=== PATIENT | male | born 1935 | race Caucasian/White ===

== ENCOUNTER 2017-02-28 14:29 | Inpatient (IN) ==
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
--- NOTE | 2017-02-28 16:52 | IRU 24Hr Post Admit Eval ---
24 Hr Post Admission Physical - Relevant Changes Relevant Changes: No Reviewed: I have reviewed the patient's information and concur with the finding and results of the pre-admission screen. Certification: I certify the patient for rehabilitation. - Patient Condition (1) Ribs, multiple fractures Status: Acute Qualifiers: Encounter type: subsequent encounter Fracture type: closed Laterality: right Fracture healing: with routine healing Qualified Code(s): S22.41XD - Multiple fractures of ribs, right side, subsequent encounter for fracture with routine healing Code(s): S22.49XA - Multiple fractures of ribs, unspecified side, initial encounter for closed fracture Classification: Present on IRF Admission, Diagnosis Requiring Medical Follow Up , Other Contributing Factor (2) Hemothorax on right Status: Acute Code(s): J94.2 - Hemothorax Classification: Present on IRF Admission, Diagnosis Requiring Medical Follow Up , Other Contributing Factor (3) Pneumothorax on right Status: Acute Code(s): J93.9 - Pneumothorax, unspecified Classification: Present on IRF Admission, Diagnosis Requiring Medical Follow Up (4) Parkinsons disease Status: Chronic Code(s): G20 - Parkinson's disease Classification: Present on IRF Admission, Diagnosis Requiring Medical Follow Up , Other Contributing Factor (5) Benign essential hypertension Status: Chronic Code(s): I10 - Essential (primary) hypertension Classification: Present on IRF Admission, Diagnosis Requiring Medical Follow Up (6) Acute blood loss anemia Status: Acute Code(s): D62 - Acute posthemorrhagic anemia Classification: Present on IRF Admission, IRF Tx That Should Address Diagnosis, Diagnosis Requiring Medical Follow Up (7) Atrial fibrillation, chronic Status: Chronic Code(s): I48.2 - Chronic atrial fibrillation Classification: Present on IRF Admission, IRF Tx That Should Address Diagnosis, Diagnosis Requiring Medical Follow Up - Prior Functional Status Lives With: Spouse Residence Type: Apartment/Private Home Assitive Devices: Front Wheeled Walker Prior Functional Status: Used no assistive device, Indep. w/ all home ADL - Current Functional Status Failed Alternative Therapy: Arrived from Acute Care Patient Requirements: The patient requires oversight by rehabilitation physician to manage their rehabilitation treatment plan and multidisciplinary approach to care that can only be provided in an IRF and requires a multidisciplinary approach to care, provided by professional PTs, OTs, STs, dieticians, RTs, rehabilitation nurses and is not available in lesser levels of care. Limitiations Req: Mobility Impairment, ADL Impairment, Respiratory Impairment, Desire/Ability to Partici Physical Therapy Minutes: 90 Occupational Therapy Minutes: 90 Therapy: The patient is to receive therapy at least 5 days a week. - Complications/Comorbidities Barriers to Discharge: Weakness, Endurance, Pain Control, Medical Limitation - Plan to Avoid Complications Plan to Avoid Complications: The patient cannot receive this care in a lesser intensive setting such as Half-Way or Outpatient Therapy due to the patient requiring the following : requirement to monitor and treat his rib fracture pain, monitoring for hypoxia , dyspnea and acute blood loss anemia. He has major multiple trauma, including multiple traumatic rib fractures, acute lung injury with pneumothorax and lower lung contusion based on chest X-ray. He will require an intensive, individualized plan of care to involve physical therapy 90 minutes daily, 5 days weekly, occupational therapy, 90 minutes daily , 5 days weekly, dietitian, rehabilitation nursing on a 24-hour basis and physician management at least 3 days weekly. .
[2017-02-28] MEDS ORDERED: Oxycodone *IR* 5 MG TABLET PO PRN (16:57)
[2017-02-28] MEDS ORDERED: SIMETHICONE 80 MG CHEWABLE TABLET PO PRN (16:57)
[2017-02-28 17:36] VITALS: BMI 29.5
[2017-02-28] MEDS: ACETAMINOPHEN 500 MG TABLET PO SCH ×2 (17:54→21:29)
[2017-02-28] MEDS ORDERED: WARFARIN 6 MG TABLET PO SCH (21:00)
[2017-02-28] MEDS: DOCUSATE SODIUM 100 MG CAPSULE PO SCH (21:29)
[2017-03-01] MEDS: ACETAMINOPHEN 500 MG TABLET PO SCH ×5 (06:11→21:22)
[2017-03-01] MEDS: COENZYME Q-10 200mg TABLET PO SCH (08:19)
[2017-03-01] MEDS: CALCIUM CARBONATE Chewable 500mg TABLET PO SCH (08:20)
[2017-03-01] MEDS: ATENOLOL 25 MG TABLET PO SCH (08:20)
[2017-03-01] MEDS: MULTI-VITAMIN + MINERAL TABLET PO SCH (08:22)
[2017-03-01] MEDS: LIDOCAINE 5% PATCH TOP SCH (08:22)
[2017-03-01] MEDS: DOCUSATE SODIUM 100 MG CAPSULE PO SCH ×2 (08:22→21:18)
[2017-03-01] MEDS: POLYETHYL GLYCOL 3350 17gm PACKET PO SCH (08:22)
[2017-03-01] MEDS: EZETIMIBE 10 MG TABLET PO SCH (08:22)
[2017-03-01] MEDS ORDERED: TURMERIC ROOT EXTRACT PO SCH (09:00)
--- NOTE | 2017-03-01 09:49 | Consult Note ---
<AdriannaMichelle Marty - Last Filed: 03/01/17 11:53> Consult Information - Data of Consult Patient: new to practice Consult date: 02/28/17 Requesting Physician: Kyler Hale MD Primary Care Provider: José Miguel Dueñas MD Family Provider: José Miguel Dueñas MD - Consult Narrative Reason for consult: Anemia; A-fib; Parkinson's History of present illness: 81-year-old male seen in consultation from Dr. Hale for medical management of chronic conditions including A. fib, on Coumadin, Parkinson's, asthma, hypertension. Below is a summary of the patient's recent events. 02/15/17: Patient either fell to the ground or was knocked over by his truck door as it was rolling backward. He had forgot to put his truck in park. He managed the night at home, but awakening the next morning in significant pain and was evaluated at [facility] emergency department. 02/16/17-hospitalized at [facility] CT scan of his chest showed a very large right hemothorax. He decompensated in the emergency department and a chest tube was emergently placed. Rib fractures of ribs 8 through 12 on the right side. Received FFP and Vitamin K. Transfused 1 U PRBC, transferred as Level I trauma to [place]. Chest tube dc'd on 02/25. Some hypotension - IVF; held metoprolol until stabilized. Required some diuresis with Lasix 02/26/17 WBC 11.9, h&h 11.3, 34; Plt 407. chest x-ray - continued right pleural effusion and improving right basilar airspace disease, stable small right apical pneumothorax 02/28/17 INR 1.7 Discharged from [facility]; admitted to [facility] for strengthening and ongoing medical monitoring 03/01/17 Evaluated by hospitalist department during PT. ROS largely negative, only positive for cough (productive last night), and recent development of coughing when he swallows. He tends to have lower extremity swelling chronically and it is a bit worse now. Occasionally has tremors with Parkinson's. Had constipation at [place] but that has resolved. PFSH Atrial fibrillation Chronic anticoagulation with Coumadin Parkinson's HTN Anemia - ABLA BPH Asthma Cataracts H/O prostate CA Surgical History: 1. Prostate surgery for cancer. 2. Chest tube placement for hemothorax and pneumothorax 02/16/17. 3. Bilateral cataract extractions. 4. T& A. 5. Herniorraphies. 6. Appendectomy Family History: Father of unknown causes when pt was very young. 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 Absent: chills, fever(s), headache(s) - EENMT Ears: Absent: ear discharge Balance: Absent: vertigo Mouth/Throat: Absent: sore throat - Cardiovascular Cardiovascular: Absent: chest pain Rhythm: Present: abnormal rhythm Vascular: Absent: intermittent claudication - Respiratory Respiratory: Present: cough. Absent: dyspnea, dyspnea on exertion - Gastrointestinal Gastrointestinal: Present: constipation (occasionally). Absent: abdominal pain , diarrhea, nausea - Genitourinary Genitourinary: Absent: dysuria - Musculoskeletal Musculoskeletal: Absent: abnormal gait, muscle weakness - Integumentary/Breasts Integumentary: Absent: rash - Neurological Neurological: Present: tremor(s) (occasionally). Absent: confusion, dizziness, focal weakness, headache(s), loss of vision, memory loss, weakness - Psychiatric Psychiatric: Absent: anxiety, depression - Hematologic/Lymphatic Hematologic/Lymphatic: Present: easy bleeding, easy bruising Medications Home Medications Medication Instructions Recorded Confirmed Type Atenolol 12.5 mg PO DAILY #0 03/15/12 02/28/17 History Ezetimibe [Zetia] 10 mg PO DAILY #0 03/15/12 02/28/17 History Multivitamins (Multiple Vitamin) 1 tab PO DAILY #0 03/15/12 02/28/17 History Ubidecarenone [Co Q-10] 100 mg PO DAILY #0 03/15/12 02/28/17 History Turmeric/Turmeric Root Extract 500 mg PO DAILY #0 02/19/16 02/28/17 History [Turmeric 450-50 mg Capsule] Warfarin Sodium [Coumadin] 5 mg PO SUTUWETHFRSA 02/16/17 02/28/17 History Acetaminophen [Acetaminophen Extra 500 mg PO Q4WA 02/28/17 02/28/17 History Strength] CALCIUM CARBONATE Chewable [Tums] 1,000 mg PO DAILY 02/28/17 02/28/17 History Carbidopa/Levodopa 1 tab PO TID 02/28/17 02/28/17 History [Carbidopa-Levodopa 25-100 Tab] Docusate Sodium [Colace] 1 cap PO BID 02/28/17 02/28/17 History Enoxaparin [Lovenox] 30 mg SUB-Q Q12HR 02/28/17 02/28/17 History Ibuprofen [Motrin] 1 tab PO Q8HR PRN 02/28/17 02/28/17 History Lidocaine 5% Patch [Lidoderm] 2 patch TRANSDERMA DAILY 02/28/17 02/28/17 History Milk of Magnesia [Mom] 30 ml PO DAILY 02/28/17 02/28/17 History Oxycodone *Ir* [Roxicodone *Ir*] 5 mg PO Q4HPRN PRN 02/28/17 02/28/17 History PEG 3350 17gm PACKET [Miralax] 17 gm PO DAILY 02/28/17 02/28/17 History Simethicone [Mylicon] 80 mg PO Q4HR PRN 02/28/17 02/28/17 History Warfarin Sodium 6 mg PO MO@1700 02/28/17 02/28/17 History Allergies Allergy/AdvReac Type Severity Reaction Status Date / Time No Known Drug Allergies Allergy Unknown Verified 02/28/17 16:56 Exam Vital Signs: Temperature 98.5 F 03/01/17 08:36 Pulse Rate 104 H 03/01/17 07:00 Respiratory Rate 18 03/01/17 07:00 Blood Pressure 133/72 03/01/17 07:00 Pulse Oximetry 95 03/01/17 07:00 Oxygen Delivery Method Room Air Height: 1.68 m Weight: 83.1 kg Body Mass Index: 29.5 - Constitutional Present: no acute distress, well nourished, well developed, thin - Routine HEENT Exam Head: Present: normocephalic Eye: Present: PERRL, conjunctival icterus (subtle) ENT: Present: mucous membranes moist, oropharynx clear. Absent: dentition normal (decay noted) - Routine Neck Exam Present: supple, full ROM. Absent: tenderness - Routine Respiratory Exam Present: CTA bilaterally. Absent: accessory muscle use, dyspnea, decreased breath sounds, rales - Routine Cardiovascular Exam Present: S1, S2, irregular rhythm - Routine Abdominal Exam Present: soft, normoactive bowel sounds, non distended, non tender - Routine Extremities Exam Present: edema (B/L LE 2+) - Routine Back/Spine/Pelvis Exam Back/Spine: Absent: vertebral tenderness, kyphosis - Routine Skin Exam Present: intact, dry, warm - Routine Neurological Exam Present: alert, oriented X3, CN II-XII intact. Absent: motor deficit, abnormal gait (uses cane well) - Routine Psychiatric Exam Present: normal affect, normal thought process Results - Labs CBC & Chem 7: 03/01/17 05:06 03/01/17 05:06 Assessment and Plan (1) Hemothorax on right Current visit: Yes Status: Acute DVT Prophylaxis: Coumadin Resuscitation Status: Full Code Assessment and Plan: Assessment Leukocytosis Thrombocytosis Right posterior rib fx 8-12 with hemothorax - chest tube from 02/16-02/25 Atrial fibrillation Chronic anticoagulation with Coumadin Anemia - ABLA Parkinson's HTN BPH Asthma Cataracts Plan Status post chest tube for right-sided hemothorax, right 8th through 12th rib fractures. * Monitor sats and breathing closely. * Encourage incentive spirometry, albuterol treatments if needed. Cough, leukocytosis. * SIRS 2/4 = tachycardia; WBC >12,000 * qSOFA = 0/3 * Obtain chest x-ray to follow-up recent trauma and to evaluate for occult pneumonia * Consult speech therapy, he is at risk for aspiration with underlying Parkinson 's and acute debility Atrial fibrillation, on Coumadin * Consult pharmacy to manage Coumadin dose * INR today is 1.7, will start Lovenox daily until INR is therapeutic * Goal INR is 2.0-3.0 Hypertension * monitor BP - had hypotension in acute setting, which has resolved * Continue atenolol. ABLA * Hemoglobin 10.8 on admit, follow periodically Thrombocytosis * Platelet level and increased from [place]. * Suspect reactive. Will monitor. Thank you for consulting the hospitalist service. We will follow Mr. Tripathi along with you during his IRU course. Extensive chart review done; discussed with nursing staff, Dr. Hale, and patient and spouse. - Time spent with patient 25 - 35 minutes Hospital Course Summary Disclaimer: The visit summary below is not to be considered part of the above Progress Note. Sepsis Assessment - Evaluation Sepsis screening result: No Definite Risk <Kristy Farfan - Last Filed: 03/01/17 16:43> Consult Information - Data of Consult Requesting Physician: Kyler Hale MD Primary Care Provider: José Miguel Dueñas MD Family Provider: José Miguel Dueñas MD [facility] Patient Stated Medical History Parkinson's Disease Yes Cataracts Yes Cardiac Arrhythmia Yes: Atrial Fib Hypertension Yes Asthma Yes Constipation pt. reports sometimes Hx Benign Prostatic Yes Hyperplasia Hx Incontinence No Other Hematologic Yes: COUMADIN Other Musculoskeletal Yes: FX LEG, CLAVICLE, RIBS Exam Vital Signs: Temperature 98.7 F 03/01/17 16:00 Pulse Rate 84 03/01/17 16:00 Respiratory Rate 18 03/01/17 16:00 Blood Pressure 101/64 03/01/17 16:00 Pulse Oximetry 92 03/01/17 16:00 Oxygen Delivery Method Room Air Height: 1.68 m Weight: 83.1 kg Results - Labs CBC & Chem 7: 03/01/17 05:06 03/01/17 05:06 Microbiology Results: Microbiology 03/01/17 16:06 Sputum, Expectorated Sputum Culture - Preliminary Culture Initiated - Results Pending Assessment and Plan (1) Hemothorax on right Current visit: Yes Status: Acute Assessment and Plan: I have independently evaluated and examined this patient. I reviewed the chart, the patient's history, and the STRATEGIC ACCOUNTS MANAGER/PA's documented findings as above. We discussed and formulated the assessment and plan as above with additions as below: Mr. Tripathi is a pleasant elderly male with chest wall trauma as noted above resulting in multiple rib fractures and hemothorax necessitating urgent chest tube placement. Chest tube was removed shortly before discharge to IRU. Currently the patient describes 1/10 discomfort in the right chest and minimal discomfort with deep inspiration or use of incentive spirometry. He reports that he was able to work hard with physical therapy yesterday and feels he is making progress. Minor low-grade therapy reported overnight with Tmax 100.3. NAD, generalized pallor Marked crepitance left shoulder with any movement Decreased breath sounds at the right base but no rhonchi appreciated nor wheezing. Irregular cardiac rhythm, 2+ edema RLE, 1-2+ bilaterally. No rest tremor present at time of exam. Chest x-ray reviewed by myself revealing atelectasis/infiltrate right base, small apical pneumothorax, and rounded infiltrate in the fissure best seen on the lateral film. Given absence of ongoing fever and minimal leukocytosis will continue to monitor. Do not believe there is clear indication for antibiotics at present but will obtain sputum culture. Repeat chest x-ray in approximately 3 days or sooner if clinical change in status. Outpatient records reviewed-patient additionally has history of obstructive sleep apnea and utilizes nocturnal BiPAP. BiPAP on hold at present due to rib fracture/chest tube. Additionally has diagnosis of overactive bladder managed with 5 mg Vesicare daily (Dr. Aranda)-patient does not feel need to resume medication at this time Hospital Course Summary Disclaimer: The visit summary below is not to be considered part of the above Progress Note. Addendum entered and electronically signed by Michelle Rodas APRN 03/01/17 11: 56: Chest tube site with mild erythema and granulation tissue. Dressing reapplied.
[2017-03-01] MEDS ORDERED: ALBUTEROL 2.5mg/0.5ml (0.5%) NEB AEROSOL PRN (10:17)
--- NOTE | 2017-03-01 10:26 | IRU Progress Note ---
- Subjective/Serverity of Illness Mr. Tripathi is cooperating well with therapy. He states that he is a bit tired this morning. Slept reasonably well. had reported that the patient had some coughing and difficulty swallowing which has been somewhat progressive over the past several weeks. Patient also admits to this. He is willing to have speech therapy evaluate him. Denies any worsening with his rib pain at present. Pain management appears to be adequate. He is using a couple of lidocaine patches over the area which are beneficial for him. It is noted that his white count has increased a bit to 12,000. Platelets are also up. Hemoglobin is stable. There is some purulent discharge from the chest tube site. Exam Vital Signs: Temperature 98.6 F 03/01/17 09:54 Pulse Rate 104 H 03/01/17 07:00 Respiratory Rate 18 03/01/17 07:00 Blood Pressure 133/72 03/01/17 07:00 Pulse Oximetry 95 03/01/17 07:00 Oxygen Delivery Method Room Air Height: 1.68 m Weight: 83.1 kg Body Mass Index: 29.5 - Constitutional Present: no acute distress Comments: The patient is awake, alert and oriented and in no acute distress. Pupils are equal. The neck is supple. Chest: Clear to auscultation on the left, but reduced breath sounds on the right lower 1/2 lung field. No crackles noted. The chest tube site on the right side demonstrates some mild purulent discharge without a large surrounding area of redness. WBC up as noted. Cor: RR with no robin, click nor murmur Abd: soft with normo-active bowel sounds. Once again, the liver seems enlarged, vs a prominent lipoma. Will review outside CT. Extremities: No edema is noted. There are good pulses in both ankles. No cyanosis is present. The patient's wound in the right chest shows mild purulence as noted. It is non- tender and I can't express more pus from this. - Routine HEENT Exam Head: Present: normocephalic Eye: Present: EOMI ENT: Present: mucous membranes moist - Routine Neck Exam Present: supple - Routine Respiratory Exam Present: decreased breath sounds (in right lower lung field) - Routine Cardiovascular Exam Present: RRR, S1, S2, no murmur - Routine Abdominal Exam Present: soft, normoactive bowel sounds, non distended, non tender, organomegaly (Prominent mass/cyst/lipoma right upper quadrant) - Routine Extremities Exam Present: no edema - Routine Neurological Exam Present: alert, oriented X3, CN II-XII intact - Routine Psychiatric Exam Present: normal affect, normal thought process, cooperative Results IRU - Labs Labs: WBC up to 12k. Platelets up. Sepsis Assessment - Evaluation Sepsis screening result: No Definite Risk IRU A/P (1) Ribs, multiple fractures Qualifiers: Encounter type: subsequent encounter Fracture type: closed Laterality: right Fracture healing: with routine healing Qualified Code(s): S22.41XD - Multiple fractures of ribs, right side, subsequent encounter for fracture with routine healing Current visit: Yes Status: Acute Patient does have discomfort in the ribs which is somewhat limiting his therapy. However the lidocaine patches appear to be of benefit for him. (2) Hemothorax on right Current visit: Yes Status: Acute Hemoglobin remained stable at present at 10.8. However there are diminished breath sounds in the right lower one half of the lung shahid. (3) Pneumothorax on right Current visit: Yes Status: Acute His white count is slightly up at 12,000. There is some purulent discharge from the chest tube site. However no surrounding erythema is noted of any significance. (4) Parkinsons disease Current visit: Yes Status: Chronic Does have some cogwheeling. He is reporting some dysphagia and we will ask speech therapy to evaluate that. (5) Benign essential hypertension Current visit: Yes Status: Chronic (6) Acute blood loss anemia Current visit: Yes Status: Acute Hematoma stable at 10.8. (7) Atrial fibrillation, chronic Current visit: Yes Status: Chronic On warfarin. (8) Dysphagia, oropharyngeal phase Current visit: Yes Status: Chronic Patient is at increased risk for pneumonia in view of his dysphagia and possible microaspiration. We will ask speech therapy to evaluate and treat. DVT Prophylaxis: Coumadin Resuscitation Status: Full Code - Course Hospital Course: Kyler Hale MD: 03/01/17 10:31 He is settling into the acute rehabilitation unit well. He is cooperating with therapy. White count is a bit up and there is some purulence from the chest tube site without surrounding erythema. There is report of dysphagia and coughing with swallowing. Speech therapy will be consulted. - Interventions to Obtain Goals OT Treatment Plan: ADL (Basic Care), Balance Training, IADL, Pt./Family Education, Ther. Exercise for ADL Goals Progress/Modifications: We will ask speech therapy to further evaluate the patient's possible dysphagia.
--- NOTE | 2017-03-01 11:21 | XRay Report ---
INDICATION: f/u - s/p chest tube rt hemothorax; rt 8-12 rib fx PROCEDURE: CHEST 2-VIEWS UPRIGHT (PA & LAT) Encounter: Subsequent COMPARISON: February 16, 2017 FINDINGS: Right chest tube has been removed. Evidence for a small residual right apical pneumothorax. Small right pleural effusion present. Right basilar airspace consolidation remains. No left-sided pneumothorax. Linear areas of atelectasis in the left base. Cardiac silhouette remains enlarged but unchanged. Mediastinal contours are stable. Prior right rib fractures. Impression: Interval removal of the right chest tube with a small residual hydropneumothorax. Interval increase in right pleural fluid. .
--- NOTE | 2017-03-01 11:33 | Pharmacy Consult ---
Pharmacy Consult-Warfarin - Laboratory Information 03/01/17 05:05 INR 1.74 H - Consult Information COUMADIN CONSULT (Initial): Dx: Chronic A. Fib. Baseline INR = 1.74. Will give Warfarin 7.5mg today. Will continue to monitor and make adjustments accordingly. Thank you.
[2017-03-01] MEDS ORDERED: WARFARIN 7.5 MG TABLET PO SCH (12:00)
[2017-03-01] MEDS ORDERED: WARFARIN 5 MG TABLET PO SCH (12:00)
[2017-03-01] MEDS: ENOXAPARIN 40 MG/0.4 ML INJECTION SQ SCH (12:10)
--- NOTE | 2017-03-01 12:37 | IRU Team Meeting ---
IRU Team Meeting - Nursing Vital Signs: Vital Signs - 24 hr 02/28/17 15:43 02/28/17 18:45 02/28/17 19:22 Temperature 98.3 F 100.3 F Pulse Rate 88 88 87 Respiratory Rate 16 16 16 Blood Pressure 137/74 127/68 Pulse Oximetry 95 95 93 02/28/17 22:11 03/01/17 07:00 03/01/17 08:36 Temperature 99.8 F 98.5 F Pulse Rate 104 H Respiratory Rate 18 Blood Pressure 133/72 Pulse Oximetry 95 03/01/17 09:54 Temperature 98.6 F Pulse Rate Respiratory Rate Blood Pressure Pulse Oximetry Current Medications: Acetaminophen (Tylenol) 500 mg PO Q4WA [facility] Last Admin: 03/01/17 12:11 Dose: Not Given Albuterol Sulfate (Proventil Neb (0.5%)) 2.5 mg AEROSOL Q4H PRN Atenolol (Tenormin) 12.5 mg PO DAILY [facility] Last Admin: 03/01/17 08:20 Dose: 12.5 mg Calcium Carbonate (Tums) 1,000 mg PO DAILY [facility] Last Admin: 03/01/17 08:20 Dose: 1,000 mg Carbidopa/Levodopa (Sinemet) 1 tab PO TID/E [facility] Last Admin: 03/01/17 06:11 Dose: 1 tab Coenzyme Q10 (Co Q-10) 200 mg PO DAILY [facility] Last Admin: 03/01/17 08:19 Dose: 200 mg Docusate Sodium (Colace) 100 mg PO BID [facility] Last Admin: 03/01/17 08:22 Dose: Not Given Ezetimibe (Zetia) 10 mg PO DAILY [facility] Last Admin: 03/01/17 08:22 Dose: 10 mg Enoxaparin Sodium (Lovenox) 40 mg SQ DAILY [facility] Last Admin: 03/01/17 12:10 Dose: 40 mg Lidocaine (Lidoderm) 2 patch TOP DAILY [facility] Last Admin: 03/01/17 08:22 Dose: 2 patch Magnesium Hydroxide (Mom) 30 ml PO DAILY PRN PRN Reason: Constipation Multivitamins/Minerals (Therapeutic - M) 1 tab PO DAILY [facility] Last Admin: 03/01/17 08:22 Dose: 1 tab Non-Formulary Medication (Turmeric/Turmeric Root Extract [Turmeric 450-50 Mg Capsule]) 500 mg PO DAILY [facility] Oxycodone HCl (Roxicodone *Ir*) 5 mg PO Q4H PRN PRN Reason: Breakthrough pain Polyethylene Glycol (Miralax) 17 gm PO DAILY [facility] Last Admin: 03/01/17 08:22 Dose: Not Given Simethicone (Mylicon) 80 mg PO Q4H PRN PRN Reason: Gas/Bloating Warfarin Sodium (Coumadin Protocol) 0 NOTE [facility] Comments: Admitted after hemothorax. WBC is up a bit. CXR shows continued effusion. Constipated. Dysphagia/cough with swallowing so ST is consulted.Occ incont. Low grade temp to 100.3 yesterday but down since. Yellow drainage from chest tube site. - Physical Therapy Supine to Sit Bed Mobility Ability: Contact Guard Assistance Sit to Supine Bed Mobility Ability: Contact Guard Assistance Comments: CGA for transfers, stairs and walking. Walks with walker 165 ft with CGA. Has reduced strength henrietta left hip. Balance test: walking with assistance category. Fatigued after walking 165 ft. Poor endurance. - Occupational Therapy Eating Ability: Independent Grooming Ability: Contact Guard Assistance Upper Body Dressing Ability: Contact Guard Assistance Lower Body Dressing Ability: Contact Guard Assistance Lower Body Dressing Comment: CGA for many ADL's. He is cooperative with therapy. Continue to work with pt. May need a shower chair at home. - Care Plan Anticipated Length of Stay: 6 Anticipated DC Destination: Home, Self Care Interventions/Goals: Continue to work with patient. He is doing well. Working on the best assistive device. Anticipate dismissal Tuesday. Barriers: endurance, cognitive Goals: find appropriate and safe assistive device. Improved safety awareness.
[2017-03-01] MEDS: LIDOCAINE PATCH REMOVAL TOP SCH (21:22)
[2017-03-02] MEDS: ACETAMINOPHEN 500 MG TABLET PO SCH ×6 (06:08→23:11)
--- NOTE | 2017-03-02 08:30 | Pharmacy Consult ---
Pharmacy Consult-Warfarin - Laboratory Information 03/01/17 03/02/17 05:05 04:42 INR 1.74 H 2.49 H - Consult Information COUMADIN CONSULT (Recurring): Today's INR = 2.49. Will give Warfarin 4mg today. Recommend dc'ing enoxaparin. Will continue to monitor & make adjustments accordingly. Thank you.
[2017-03-02] MEDS: ATENOLOL 25 MG TABLET PO SCH (08:55)
[2017-03-02] MEDS: EZETIMIBE 10 MG TABLET PO SCH (08:56)
[2017-03-02] MEDS: DOCUSATE SODIUM 100 MG CAPSULE PO SCH (08:56)
[2017-03-02] MEDS: MULTI-VITAMIN + MINERAL TABLET PO SCH (08:56)
[2017-03-02] MEDS: COENZYME Q-10 200mg TABLET PO SCH (08:56)
[2017-03-02] MEDS: POLYETHYL GLYCOL 3350 17gm PACKET PO SCH (08:57)
[2017-03-02] MEDS: ENOXAPARIN 40 MG/0.4 ML INJECTION SQ SCH (08:57)
--- NOTE | 2017-03-02 10:10 | IRU Progress Note ---
- Subjective/Serverity of Illness Mr. Tripathi was evaluated in his room. I also observed him working with therapy. He continues to require contact guard assistance for ambulation and transfers. In addition he requires contact-guard assistance for lower extremity dressing. He reports that his bowels are nice and soft and would prefer to stop the stool softener which will be accomplished. We will continue the MiraLAX. He is eating adequately. He does have multiple rib fractures on the right side. Pain is apparently fairly well controlled at present. He does appear to be a bit objectively dyspneic when he exerts himself but he does not really report this otherwise. The chest tube site was inspected. There is a small amount of purulence but it is not really exuding out. Does not really have significant surrounding erythema. Pressing on the area does not reveal any fluctuance. His white count remains elevated at 12,000. This is identical to yesterday. Platelets are up. Hemoglobin is stable at 10 g percent. I did review his chest radiograph yesterday demonstrating lower lobe atelectasis and effusion. There may be a continued very tiny apical pneumothorax. States that he is using his incentive spirometer and I encouraged him to continue doing that. Does have a cough but not much in the way of sputum. His INR is therapeutic. Exam Vital Signs: Temperature 98.2 F 03/02/17 08:00 Pulse Rate 83 03/02/17 08:00 Respiratory Rate 22 03/02/17 08:00 Blood Pressure 105/65 03/02/17 08:00 Pulse Oximetry 91 03/02/17 08:00 Oxygen Delivery Method Room Air Height: 1.68 m Weight: 83.1 kg Body Mass Index: 29.5 - Constitutional Present: mild distress (appears to be a little dyspneic after ambulating.) Comments: The patient is awake, alert and oriented and displays a bit of dyspnea with activity.. Pupils are equal. The neck is supple. Chest: Clear to auscultation in the left lung but does have markedly diminished breath sounds right lower one half lung field.. Cor: Irregular rhythm with no robin, click nor murmur Abd: soft with normo-active bowel sounds. Liver edge continues to be prominent with some irregularity. Does have multiple cysts in the liver based on CT scan. Extremities: No edema is noted. There are good pulses in both ankles. No cyanosis is present. The patient's wound in the right chest from his chest tube site is inspected. Minimal purulence, no moisture and no fluctuance. No significant surrounding erythema. It appears to be stable. - Routine HEENT Exam Head: Present: normocephalic Eye: Present: EOMI, PERRL. Absent: conjunctival icterus, scleral injection ENT: Present: mucous membranes moist - Routine Neck Exam Present: supple - Routine Respiratory Exam Present: dyspnea, decreased breath sounds (right lower one half) - Routine Cardiovascular Exam Present: S1, S2, no murmur, irregularly irregular - Routine Abdominal Exam Present: soft, normoactive bowel sounds, non distended, non tender, organomegaly (as noted previously, liver edge noted to be prominent.) - Routine Extremities Exam Present: no edema, full ROM - Routine Skin Exam Present: intact. Absent: erythema - Routine Neurological Exam Present: alert, oriented X3, CN II-XII intact The patient may tend to minimize his symptoms. - Routine Psychiatric Exam Present: normal affect, normal thought process, cooperative, depressed. Absent : good judgment Results IRU - Labs Labs: I have personally reviewed his chest x-ray and lab work. Please see previous discussion in this regard. Sepsis Assessment - Evaluation Sepsis screening result: No Definite Risk IRU A/P (1) Ribs, multiple fractures Qualifiers: Encounter type: subsequent encounter Fracture type: closed Laterality: right Fracture healing: with routine healing Qualified Code(s): S22.41XD - Multiple fractures of ribs, right side, subsequent encounter for fracture with routine healing Current visit: Yes Status: Acute Patient does have discomfort from his multiple rib fractures on the right. Seems to be stable at present. Does have some dyspnea with activity on an objective basis. Does have a right pleural effusion and atelectasis. The reader is referred to the separate individualized plan of care developed today. This enters into the medical decision making process and also adds on approximately 30 minutes of additional documentation time and medical decision- making.. He is improving with therapy. We have added on speech therapy. (2) Hemothorax on right Current visit: Yes Status: Acute Residual pleural effusion etc. identified. (3) Pneumothorax on right Current visit: Yes Status: Acute Small apical pneumothorax is felt to continue to be present. (4) Parkinsons disease Current visit: Yes Status: Chronic His chronic Parkinson's disease does affect his therapy. In addition he is being evaluated for swallowing difficulty by speech therapy. (5) Benign essential hypertension Current visit: Yes Status: Chronic (6) Acute blood loss anemia Current visit: Yes Status: Acute Hemoglobin remained stable at 10 g percent. White count is elevated however. (7) Atrial fibrillation, chronic Current visit: Yes Status: Chronic INR is therapeutic. (8) Dysphagia, oropharyngeal phase Current visit: Yes Status: Chronic Speech therapy evaluation pending. DVT Prophylaxis: Coumadin Resuscitation Status: Full Code - Course Hospital Course: Kyler Hale MD: 03/01/17 10:31 He is settling into the acute rehabilitation unit well. He is cooperating with therapy. White count is a bit up and there is some purulence from the chest tube site without surrounding erythema. There is report of dysphagia and coughing with swallowing. Speech therapy will be consulted. 03/02/17 10:15 Patient is making progress. His Parkinson's disease is a limitation on his progress however. He is walking with contact-guard assistance and during lower extremity dressing with contact-guard assistance. His multiple major trauma from his multiple right rib fractures is limiting his progress as well. We anticipate continued improvement over the next several days with a planned dismissal on March 07. Stool softener is discontinued today. Wound looks about the same and his white count remains elevated at 12,000. - Interventions to Obtain Goals PT Treatment Plan: Balance/Proprioception, Functional Activities, Gait Training , Patient/Family Education, Therapeutic Exercise OT Treatment Plan: ADL (Basic Care), Balance Training, IADL, Pt./Family Education, Ther. Exercise for ADL Goals Progress/Modifications: Increase medical decision-making was involved in development of the patient's individualized plan of care documented separately. Speech therapy has now been consulted for his dysphagia.
[2017-03-02] MEDS: CALCIUM CARBONATE Chewable 500mg TABLET PO SCH (10:14)
--- NOTE | 2017-03-02 10:23 | IRU Plan of Care ---
U Overall Plan of Care - Date Date: 03/02/17 - Patient Impairments (1) Hemothorax on right Code(s): J94.2 - Hemothorax Status: Acute Classification: Present on IRF Admission (patient's chest x-ray continues to demonstrate pleural effusion and likely hemothorax. Atelectasis also present.), Diagnosis Requiring Medical Follow Up, Other Contributing Factor (2) Ribs, multiple fractures Qualifiers: Encounter type: subsequent encounter Fracture type: closed Laterality: right Fracture healing: with routine healing Qualified Code(s): S22.41XD - Multiple fractures of ribs, right side, subsequent encounter for fracture with routine healing Code(s): S22.49XA - Multiple fractures of ribs, unspecified side, initial encounter for closed fracture Status: Acute Classification: Present on IRF Admission, Diagnosis Requiring Medical Follow Up (he has multiple major trauma (multiple rib fractures) which has resulted in a hemothorax and shortness of breath with activity.), Other Contributing Factor (3) Dysphagia, oropharyngeal phase Code(s): R13.12 - Dysphagia, oropharyngeal phase Status: Chronic Classification: Present on IRF Admission, IRF Tx That Should Address Diagnosis ( patient's and patient confirms that he has had coughing with swallowing. Speech therapy is now involved.) (4) Parkinsons disease Code(s): G20 - Parkinson's disease Status: Chronic Classification: Present on IRF Admission, Diagnosis Requiring Medical Follow Up , Other Contributing Factor (5) Pneumothorax on right Code(s): J93.9 - Pneumothorax, unspecified Status: Acute Classification: Present on IRF Admission, Diagnosis Requiring Medical Follow Up (6) Leukocytosis Qualifiers: Leukocytosis type: other Qualified Code(s): D72.828 - Other elevated white blood cell count Code(s): D72.829 - Elevated white blood cell count, unspecified Status: Acute Classification: Present on IRF Admission, IRF Tx That Should Address Diagnosis, Diagnosis Requiring Medical Follow Up (he has developed leukocytosis to 12,000 compared to 10,000 in [place]. We are monitoring the patient's right chest tube wound.) - Relevant Changes Relevant Changes: Yes (patient has developed new leukocytosis as well as need for addressing dysphagia and risk for aspiration.) Reviewed: I have reviewed the patient's information and concur with the finding and results of the pre-admission screen. Certification: I certify the patient for rehabilitation. - Medical Prognosis Medical Prognosis: Good Vital Signs: Last Vital Signs Temp 98.2 F 03/02/17 08:00 Pulse 83 03/02/17 08:00 Resp 22 03/02/17 08:00 BP 105/65 03/02/17 08:00 Pulse Ox 91 03/02/17 08:00 Laboratory: Repeat chest x-ray demonstrates pleural effusion and a small right pneumothorax. Atelectasis also present. White count is 12,000 and we are monitoring that as well as the chest wound. - Anticipated Interventions Anticipated Interventions: The patient requires inpatient IRF care for PT, OT, and/or ST for residuals remaining from multiple major trauma involving multiple right rib fractures, large hemothorax and recent chest tube placement and removal resulting in muscular weakness and strength deficits. - FIM Ambulation Distance: 165 Walk: 3 Moderate Assistance Staff Assist to Walk: 1 Person Dressing Lower: 3 Moderate Assistance Staff Assistance Lower Body Dressin Person Toileting Adaptive Equipment: Toilet Rails Urinary Catheter Present: No - Current Functional Status Failed Alternative Therapy: Arrived from Acute Care Patient Requires: The patient requires oversight by rehabilitation physician to manage their rehabilitation treatment plan and multidisciplinary approach to care that can only be provided in an IRF and requires a multidisciplinary approach to care, provided by professional PTs, OTs, STs, dieticians, RTs, rehabilitation nurses and is not available in lesser levels of care. Physical Therapy Minutes: 90 Occupational Therapy Minutes: 90 Therapy: The patient is to receive therapy at least [address] Treatment Plan: Swallow Precautions, Modified Diet ST Treatment Plan Duration: One Week ST Treatment Plan Frequency: Three Times Per Week - Anticipated LOS/Outcomes Anticipated Functional Outcome: It is anticipated the patient will be able to resume independent to modified independent function at home with the patient being able to dress himself without assistance, ambulate safely and resume most of his prior activities without assistive device. It is also anticipated that the patient will be able to swallow and eat in a safe manner and be able to ambulate without significant dyspnea. Stabilization and improvement in his white count and chest wound are anticipated as well. Anticipated Length of Stay: 6 Anticipated DC Destination: Home, Self [facility] Safety Plan: The patient will be provided with the development of a Home Safety Plan for return to a home or home-like environment and and to ensure safety post discharge. - Plan to Avoid Complications Barriers to Attaining Goals: Weakness, Endurance, Medical Limitation Plan to Avoid Complications: The patient cannot receive this care in a lesser intensive setting such as Retirement or Outpatient Therapy due to the patient requiring the following monitoring of his chest wound, leukocytosis, multiple rib fractures in the setting of Parkinson's disease as well as abnormal chest x-ray and the need for a comprehensive, intensive and individualized plan of care involving physical therapy, occupational therapy and speech therapy in view of his dysphagia and risk for aspiration. .
--- NOTE | 2017-03-02 10:31 | Progress Note ---
Subjective: Pt seen in his room today during therapy. He has no complaints. States at this point he is having no pain. Feels his breathing is ok. No nursing concerns. Objective Vital signs: Temperature 98.2 F 03/02/17 08:00 Pulse Rate 83 03/02/17 08:00 Respiratory Rate 22 03/02/17 08:00 Blood Pressure 105/65 03/02/17 08:00 Pulse Oximetry 91 03/02/17 08:00 Oxygen Delivery Method Room Air Body Mass Index: 29.5 - Constitutional Present: mild distress, well nourished, well developed - Routine HEENT Exam Head: Present: normocephalic, atraumatic Eye: Present: EOMI ENT: Present: mucous membranes moist - Routine Respiratory Exam Present: CTA bilaterally, diminished air movement (decreased sounds RLL). Absent: wheezes - Routine Cardiovascular Exam Present: irregularly irregular. Absent: murmur - Routine Abdominal Exam Present: soft, normoactive bowel sounds, non distended. Absent: tenderness - Routine Extremities Exam Present: edema (2+ bilateral pitting), normal capillary refill - Routine Skin Exam Present: dry, warm, wounds (chest tube site is healing without sign of infection. Light yellow, serous drainage noted on dressing.) - Routine Neurological Exam Present: alert, oriented X3, CN II-XII intact - Routine Lymphatic Exam Lymphatic: Absent: adenopathy - Routine Psychiatric Exam Present: normal affect Results - Labs CBC & Chem 7: 03/02/17 04:42 03/02/17 04:42 Microbiology Results: Microbiology 03/01/17 16:06 Sputum, Expectorated Gram Stain - Final 03/01/17 16:06 Sputum, Expectorated Sputum Culture - Preliminary Culture Initiated - Results Pending Assessment and Plan (1) Hemothorax on right Current visit: Yes Status: Acute Assessment and Plan: Assessment Leukocytosis Thrombocytosis Right posterior rib fx 8-12 with hemothorax - chest tube from 02/16-02/25 Atrial fibrillation Chronic anticoagulation with Coumadin Anemia - ABLA Parkinson's HTN BRIANNE -Home BiPAP BPH Asthma Cataracts Plan Status post chest tube for right-sided hemothorax, right 8th through 12th rib fractures. * Encourage incentive spirometry, albuterol treatments if needed. Cough, leukocytosis. * SIRS 1/4 = WBC >12,000 * qSOFA 1/3 = respirations =>22 * Repeat chest x-ray March 04 to follow pleural effusion and monitor for development of empyema * He is at risk for aspiration with underlying Parkinson's and acute debility - speech therapy has been consulted Atrial fibrillation, on Coumadin * INR is therapeutic - Lovenox discontinued. Pharmacy to continue to manage coumadin. * Goal INR is 2.0-3.0 Hypertension * BP's stable BRIANNE - continue home BiPAP ABLA * Hemoglobin 10.8 on admit. Repeat CBC Mar 04. Thrombocytosis * Suspect reactive. Will monitor. Sepsis Assessment - Evaluation Sepsis screening result: No Definite Risk Hospital Course Summary Disclaimer: The visit summary below is not to be considered part of the above Progress Note. Hospital Course: 03/01/17 - Hospital consult Status post chest tube for right-sided hemothorax, right 8th through 12th rib fractures. * Monitor sats and breathing closely. * Encourage incentive spirometry, albuterol treatments if needed. Cough, leukocytosis. * SIRS 2/4 = tachycardia; WBC >12,000 * qSOFA = 0/3 * CXR shows atelectasis/pleural effusion right base and small apical pneumothorax- will follow * Consult speech therapy, he is at risk for aspiration with underlying Parkinson 's and acute debility Atrial fibrillation, on Coumadin * Consult pharmacy to manage Coumadin dose * INR today is 1.7, will start Lovenox daily until INR is therapeutic * Goal INR is 2.0-3.0 Hypertension * monitor BP - had hypotension in acute setting, which has resolved * Continue atenolol. ABLA * Hemoglobin 10.8 on admit, follow periodically Thrombocytosis * Platelet level and increased from [place]. * Suspect reactive. Will monitor. 03/02/17 CPAP resumed (OK per [place] Trauma team) Lovenox discontinued as INR is therapeutic. Continue coumadin for atrial fibrillation CXR shows right pleural effusion and small apical pneumothorax - repeat CXR later this week. WBC averaging 12,000. No indication for antibiotics at this point given absence of ongoing fever and minimal leukocytosis. Sputum culture is pending. Continue atenolol for hypertension.
[2017-03-02] MEDS ORDERED: WARFARIN 4 MG TABLET PO SCH (12:00)
[2017-03-02] MEDS: LIDOCAINE 5% PATCH TOP SCH (12:22)
[2017-03-02] MEDS: LIDOCAINE PATCH REMOVAL TOP SCH (23:10)
[2017-03-03] MEDS: ACETAMINOPHEN 500 MG TABLET PO SCH ×5 (05:43→22:30)
--- NOTE | 2017-03-03 08:50 | Pharmacy Consult ---
Pharmacy Consult-Warfarin - Laboratory Information 03/01/17 03/02/17 03/03/17 05:05 04:42 04:35 INR 1.74 H 2.49 H 2.76 H COUMADIN CONSULT: Dx: Chronic A. Fib. Baseline INR = 1.74. Date INR Dose 03/01 1.74 6 mg 03/02 2.49 4 mg 03/03 2.76 Plan 4 mg The INR is therapeutic, so I sill give Warfarin 7.5mg today. The Pharmacy will continue to monitor and make adjustments accordingly. Thank you, Pankaj Nelson, Pharmacist.
[2017-03-03] MEDS: EZETIMIBE 10 MG TABLET PO SCH (10:12)
[2017-03-03] MEDS: COENZYME Q-10 200mg TABLET PO SCH (10:12)
[2017-03-03] MEDS: CALCIUM CARBONATE Chewable 500mg TABLET PO SCH (10:12)
[2017-03-03] MEDS: MULTI-VITAMIN + MINERAL TABLET PO SCH (10:12)
[2017-03-03] MEDS: LIDOCAINE 5% PATCH TOP SCH (10:12)
[2017-03-03] MEDS: ATENOLOL 25 MG TABLET PO SCH (10:14)
[2017-03-03] MEDS: POLYETHYL GLYCOL 3350 17gm PACKET PO SCH (10:14)
--- NOTE | 2017-03-03 11:50 | Progress Note ---
<Svetlana Gutierrez - Last Filed: 03/03/17 12:02> Subjective: Patient seen today during therapy. He reports she is doing well. He is not having any pain. No shortness of breath. Reports he is having regular bowel movements. Objective Vital signs: Temperature 97.6 F 03/03/17 08:00 Pulse Rate 99 03/03/17 08:00 Respiratory Rate 18 03/03/17 08:00 Blood Pressure 140/78 H 03/03/17 08:00 Pulse Oximetry 92 03/03/17 08:00 Oxygen Delivery Method Room Air Body Mass Index: 29.5 - Constitutional Present: no acute distress, well nourished, well developed - Routine HEENT Exam Head: Present: normocephalic, atraumatic Eye: Present: EOMI ENT: Present: mucous membranes moist, dentition normal - Routine Respiratory Exam Present: CTA bilaterally. Absent: wheezes - Routine Cardiovascular Exam Present: RRR, S1, S2. Absent: murmur - Routine Abdominal Exam Present: soft, normoactive bowel sounds, non distended. Absent: tenderness - Routine Extremities Exam Present: edema (2-3+ bilaterally), normal capillary refill - Routine Skin Exam Present: dry, warm, wounds (right lateral chest wound is healing. No fluctuance. Minimal erythema and no tenderness.) - Routine Neurological Exam Present: alert, oriented X3 - Routine Lymphatic Exam Lymphatic: Absent: adenopathy - Routine Psychiatric Exam Present: normal affect, normal thought process Results - Labs CBC & Chem 7: 03/02/17 04:42 03/02/17 04:42 Microbiology Results: Microbiology 03/01/17 16:06 Sputum, Expectorated Gram Stain - Final 03/01/17 16:06 Sputum, Expectorated Sputum Culture - Preliminary No Growth After 1 Day Assessment and Plan (1) Hemothorax on right Current visit: Yes Status: Acute Assessment and Plan: Assessment Bilateral lower extremity edema - likely venous stasis Leukocytosis Thrombocytosis Right posterior rib fx 8-12 with hemothorax - chest tube from 02/16-02/25 Atrial fibrillation Chronic anticoagulation with Coumadin Anemia - ABLA Parkinson's HTN BRIANNE -Home BiPAP BPH Asthma Cataracts Plan Lower extremity edema - likely related to venous stasis * Will have him elevate his legs as much as possible and order JANNET hose. Will check daily weights. Status post chest tube for right-sided hemothorax, right 8th through 12th rib fractures. * Wound care has been consulted by Dr. Hale regarding the chest tube wound. Cough, leukocytosis. * Repeat chest x-ray tomorrow to follow pleural effusion and monitor for development of empyema * CBC tomorrow. Hypertension * BP's running higher than previous. Last few pressures have been 140's/80's. He continues on his home dose of atenolol 12.5 mg daily. Continue to monitor. BRIANNE - continue home BiPAP ABLA * Hemoglobin 10.8 on admit. Repeat CBC tomorrow Thrombocytosis * Suspect reactive. Will monitor. Sepsis Assessment - Evaluation Sepsis screening result: No Definite Risk Hospital Course Summary Disclaimer: The visit summary below is not to be considered part of the above Progress Note. Hospital Course: 03/01/17 - Hospital consult Status post chest tube for right-sided hemothorax, right 8th through 12th rib fractures. * Monitor sats and breathing closely. * Encourage incentive spirometry, albuterol treatments if needed. Cough, leukocytosis. * SIRS 2/4 = tachycardia; WBC >12,000 * qSOFA = 0/3 * CXR shows atelectasis/pleural effusion right base and small apical pneumothorax- will follow * Consult speech therapy, he is at risk for aspiration with underlying Parkinson 's and acute debility Atrial fibrillation, on Coumadin * Consult pharmacy to manage Coumadin dose * INR today is 1.7, will start Lovenox daily until INR is therapeutic * Goal INR is 2.0-3.0 Hypertension * monitor BP - had hypotension in acute setting, which has resolved * Continue atenolol. ABLA * Hemoglobin 10.8 on admit, follow periodically Thrombocytosis * Platelet level and increased from [place]. * Suspect reactive. Will monitor. 03/02/17 CPAP resumed (OK per [place] Trauma team) Lovenox discontinued as INR is therapeutic. Continue coumadin for atrial fibrillation CXR shows right pleural effusion and small apical pneumothorax - repeat CXR later this week. WBC averaging 12,000. No indication for antibiotics at this point given absence of ongoing fever and minimal leukocytosis. Sputum culture is pending. Continue atenolol for hypertension. 03/03/17 Increasing lower extremity edema-will have him elevate his legs as much as possible and order JANNET hose. Will check daily weights. Wound care has been consulted by Dr. Hale regarding the chest tube wound. Cough, leukocytosis. * Repeat chest x-ray tomorrow to follow pleural effusion and monitor for development of empyema * CBC tomorrow. Hypertension * BP's running higher than previous. Last few pressures have been 140's/80's. He continues on his home dose of atenolol 12.5 mg daily. Continue to monitor. . <NaheedKristy L - Last Filed: 03/03/17 18:43> Objective Vital signs: Temperature 97.3 F 03/03/17 16:00 Pulse Rate 85 03/03/17 16:00 Respiratory Rate 20 03/03/17 16:00 Blood Pressure 98/64 03/03/17 16:00 Pulse Oximetry 93 03/03/17 16:00 Oxygen Delivery Method Room Air Results - Labs CBC & Chem 7: 03/02/17 04:42 03/02/17 04:42 Microbiology Results: Microbiology 03/01/17 16:06 Sputum, Expectorated Gram Stain - Final 03/01/17 16:06 Sputum, Expectorated Sputum Culture - Final Assessment and Plan (1) Hemothorax on right Current visit: Yes Status: Acute Assessment and Plan: I have independently evaluated and examined this patient. I reviewed the chart, the patient's history, and the [facility]/PA's documented findings as above. We discussed and formulated the assessment and plan as above with additions as below: Doing well, denies dyspnea or pleuritic pain. Vague regarding degree of edema but indicates he always has some. Unsure of home warfarin dose. NAD, resting in bed with minimal elevation of the head. Respirations nonlabored, decreased breath sounds at the bases bilaterally Irregular cardiac rhythm Chest wall nontender anterolateral on the right 2+ edema bilateral lower extremities Reassessed chest x-ray in a.m. Blood pressure acceptable, heart rate stable. Hospital Course Summary Disclaimer: The visit summary below is not to be considered part of the above Progress Note.
[2017-03-03] MEDS ORDERED: WARFARIN 4 MG TABLET PO SCH (12:00)
[2017-03-03] MEDS: LIDOCAINE PATCH REMOVAL TOP SCH (22:28)
[2017-03-04] MEDS: ACETAMINOPHEN 500 MG TABLET PO SCH ×4 (06:42→17:29)
--- NOTE | 2017-03-04 07:43 | Pharmacy Consult ---
Pharmacy Consult-Warfarin - Laboratory Information 03/01/17 03/02/17 03/03/17 05:05 04:42 04:35 INR 1.74 H 2.49 H 2.76 H 03/04/17 04:38 INR 3.07 H COUMADIN CONSULT: Dx: Chronic A. Fib. Baseline INR = 1.74. Date INR Dose 03/01 1.74 6 mg 03/02 2.49 4 mg 03/03 2.76 4 mg 03/04 3.07 Plan 2 mg The INR is supratherapeutic, so I sill give Warfarin 2 mg today per the dosing protocol. The Pharmacy will continue to monitor and make adjustments accordingly. Thank you, Pankaj Nelson, Pharmacist.
[2017-03-04] MEDS: LIDOCAINE 5% PATCH TOP SCH (08:59)
[2017-03-04] MEDS: POLYETHYL GLYCOL 3350 17gm PACKET PO SCH (08:59)
[2017-03-04] MEDS: ATENOLOL 25 MG TABLET PO SCH (09:00)
[2017-03-04] MEDS: COENZYME Q-10 200mg TABLET PO SCH (09:00)
[2017-03-04] MEDS: EZETIMIBE 10 MG TABLET PO SCH (09:01)
[2017-03-04] MEDS: MULTI-VITAMIN + MINERAL TABLET PO SCH (09:01)
[2017-03-04] MEDS: CALCIUM CARBONATE Chewable 500mg TABLET PO SCH (09:01)
--- NOTE | 2017-03-04 09:03 | XRay Report ---
INDICATION: pleural effusion, leukocytosis PROCEDURE: CHEST 2-VIEWS UPRIGHT (PA & LAT) Encounter: Initial COMPARISON: March 01, 2017 FINDINGS: Right pleural effusion appears larger. The prior pneumothorax is no longer seen. Continued consolidation of the right middle and lower lobes. Left lung is stable and grossly clear. Heart size is unchanged. Pulmonary vascularity is stable. Right rib fractures and old left clavicular fracture. Impression: Enlarging moderate right pleural effusion. Resolution of the prior pneumothorax. .
--- NOTE | 2017-03-04 10:46 | IRU Progress Note ---
- Subjective/Serverity of Illness Jose Manuel is evaluated during his therapy session. He is doing quite well. He is progressing. He states he does have some cough and sputum at times. He remains afebrile. It is noted that his white count has remained elevated roughly at the same level (12,000). Does have thrombocytosis as well likely indicating some inflammation. I reviewed his chest radiograph revealing an increasing right pleural effusion but with resolution of his previously noted right pneumothorax. Clinically he denies significant shortness of breath. Does have somewhat reduced energy level. Working on balance and strengthening as well. Therapy notes poor trunk or head control. Also working on safety concerns and balance. Exam Vital Signs: Temperature 97.8 F 03/04/17 08:00 Pulse Rate 91 03/04/17 08:00 Respiratory Rate 16 03/04/17 08:00 Blood Pressure 117/69 03/04/17 08:00 Pulse Oximetry 93 03/04/17 08:00 Oxygen Delivery Method Room Air Height: 1.68 m Weight: 83.7 kg Body Mass Index: 29.5 - Constitutional Present: no acute distress Comments: The patient is awake, alert and oriented and in no acute distress. Pupils are equal. The neck is supple. Chest: Clear to auscultation on the left, reduced on the right lower 1/2 lung field Cor: Irreg rhythm with no robin, click nor murmur Abd: Did not assess today. Extremities: No edema is noted. - Routine HEENT Exam Head: Present: normocephalic - Routine Neck Exam Present: supple - Routine Cardiovascular Exam Present: S1, S2, no murmur, irregularly irregular - Routine Extremities Exam Present: no edema - Routine Neurological Exam Present: alert, oriented X3, CN II-XII intact - Routine Psychiatric Exam Present: normal affect, normal thought process, cooperative. Absent: good insight, good judgment Results IRU - Labs Labs: I reviewed his chest radiograph and CBC Sepsis Assessment - Evaluation Sepsis screening result: No Definite Risk IRU A/P (1) Hemothorax on right Current visit: Yes Status: Acute Continues to demonstrate reduced breath sounds on the right lower one half of the lung field. His chest radiograph does show some progression in the effusion. This will likely be chronic. (2) Ribs, multiple fractures Qualifiers: Encounter type: subsequent encounter Fracture type: closed Laterality: right Fracture healing: with routine healing Qualified Code(s): S22.41XD - Multiple fractures of ribs, right side, subsequent encounter for fracture with routine healing Current visit: Yes Status: Acute Pain is reasonably well controlled. Gait belt does irritate the rib pain somewhat. (3) Dysphagia, oropharyngeal phase Current visit: Yes Status: Chronic (4) Parkinsons disease Current visit: Yes Status: Chronic (5) Pneumothorax on right Current visit: Yes Status: Resolved Most recent chest radiograph reveals resolution of the pneumothorax. (6) Leukocytosis Qualifiers: Leukocytosis type: other Qualified Code(s): D72.828 - Other elevated white blood cell count Current visit: Yes Status: Acute Continued white count elevation at 12,000 as well as thrombocytosis noted. Likely related to underlying hemothorax. DVT Prophylaxis: Coumadin Resuscitation Status: Full Code - Course Hospital Course: Kyler Hale MD: 03/01/17 10:31 He is settling into the acute rehabilitation unit well. He is cooperating with therapy. White count is a bit up and there is some purulence from the chest tube site without surrounding erythema. There is report of dysphagia and coughing with swallowing. Speech therapy will be consulted. 03/02/17 10:15 Patient is making progress. His Parkinson's disease is a limitation on his progress however. He is walking with contact-guard assistance and during lower extremity dressing with contact-guard assistance. His multiple major trauma from his multiple right rib fractures is limiting his progress as well. We anticipate continued improvement over the next several days with a planned dismissal on March 07. Stool softener is discontinued today. Wound looks about the same and his white count remains elevated at 12,000. 03/04/17 10:48 Patient is making slow progress. Still requires standby assistance. Leukocytosis and thrombocytosis remain. Some progression in the pleural effusion on chest radiograph. - Interventions to Obtain Goals PT Treatment Plan: Balance/Proprioception, Functional Activities, Gait Training , Patient/Family Education, Therapeutic Exercise OT Treatment Plan: ADL (Basic Care), Balance Training, IADL, Pt./Family Education, Ther. Exercise for ADL
[2017-03-04] MEDS ORDERED: WARFARIN 2 MG TABLET PO SCH (12:00)
[2017-03-04] MEDS ORDERED: FUROSEMIDE 40 MG TABLET PO ONE (12:58)
--- NOTE | 2017-03-04 13:27 | Progress Note ---
Subjective: Mr Tripathi is seen today in follow up. He continues to have 3+bilateral lower ext edema as well as increasing moderate pleural effusion on Xray. He is evaluated while laying flat and he does appear to have some mild tachypnea approximately 24 times a minute, however denies feeling short of breath or having chest pain. Denies having GI complaints. Vital signs have been stable. Room air saturations 93%. Objective Vital signs: Temperature 97.8 F 03/04/17 08:00 Pulse Rate 91 03/04/17 08:00 Respiratory Rate 16 03/04/17 08:00 Blood Pressure 117/69 03/04/17 08:00 Pulse Oximetry 93 03/04/17 08:00 Oxygen Delivery Method Room Air Body Mass Index: 29.5 - Constitutional Present: well nourished, well developed - Routine HEENT Exam Head: Present: normocephalic Eye: Present: EOMI, PERRL ENT: Present: mucous membranes moist, dentition normal - Routine Respiratory Exam Present: CTA bilaterally. Absent: wheezes - Routine Cardiovascular Exam Present: RRR, S1, S2. Absent: murmur - Routine Abdominal Exam Present: soft, normoactive bowel sounds, non distended. Absent: tenderness - Routine Extremities Exam Present: edema (2-3+ bilateral lower extremity edema), normal capillary refill - Routine Skin Exam Present: dry, warm - Routine Neurological Exam Present: alert, oriented X3, CN II-XII intact - Routine Lymphatic Exam Lymphatic: Absent: adenopathy - Routine Psychiatric Exam Present: normal affect Results - Labs CBC & Chem 7: 03/04/17 04:38 03/02/17 04:42 Microbiology Results: Microbiology 03/01/17 16:06 Sputum, Expectorated Gram Stain - Final 03/01/17 16:06 Sputum, Expectorated Sputum Culture - Final Assessment and Plan (1) Hemothorax on right Current visit: Yes Status: Acute Assessment and Plan: Impression Bilateral lower extremity edema Leukocytosis Thrombocytosis Right posterior rib fx 8-12 with hemothorax - chest tube from 02/16-02/25 Atrial fibrillation Chronic anticoagulation with Coumadin Anemia - ABLA Parkinson's HTN BRIANNE -Home BiPAP BPH Asthma Cataracts Plan Lower extremity edema - * appears to be worsening. Have asked nursing staff to place JANNET hose on lower extremities as previously ordered. Have also asked nursing staff to obtain daily weights as previously ordered. Will give patient a one-time dose of Lasix 40 milligrams 1 now. Will then start 20 twice a day tomorrow. Cough, leukocytosis. * Chest x-ray obtained today does show an increase in pleural effusion on the right. Again, will increase aggressive diuresing as indicated above. Status post chest tube for right-sided hemothorax, right 8th through 12th rib fractures. * Wound care has been consulted by Dr. Hale regarding the chest tube wound. Hypertension * BP's running normal. Continue on current regimen. Monitor for hypotension. Given addition of Lasix BRIANNE - continue home BiPAP Anemia * Hemoglobin remains stable continues at 10.4 Thrombocytosis * Suspect reactive. Will monitor. Sepsis Assessment - Evaluation Sepsis screening result: No Definite Risk Hospital Course Summary Disclaimer: The visit summary below is not to be considered part of the above Progress Note. Hospital Course: 03/01/17 - Hospital consult Status post chest tube for right-sided hemothorax, right 8th through 12th rib fractures. * Monitor sats and breathing closely. * Encourage incentive spirometry, albuterol treatments if needed. Cough, leukocytosis. * SIRS 2/4 = tachycardia; WBC >12,000 * qSOFA = 0/3 * CXR shows atelectasis/pleural effusion right base and small apical pneumothorax- will follow * Consult speech therapy, he is at risk for aspiration with underlying Parkinson 's and acute debility Atrial fibrillation, on Coumadin * Consult pharmacy to manage Coumadin dose * INR today is 1.7, will start Lovenox daily until INR is therapeutic * Goal INR is 2.0-3.0 Hypertension * monitor BP - had hypotension in acute setting, which has resolved * Continue atenolol. ABLA * Hemoglobin 10.8 on admit, follow periodically Thrombocytosis * Platelet level and increased from [place]. * Suspect reactive. Will monitor. 03/02/17 CPAP resumed (OK per [facility]) Lovenox discontinued as INR is therapeutic. Continue coumadin for atrial fibrillation CXR shows right pleural effusion and small apical pneumothorax - repeat CXR later this week. WBC averaging 12,000. No indication for antibiotics at this point given absence of ongoing fever and minimal leukocytosis. Sputum culture is pending. Continue atenolol for hypertension. 03/03/17 Increasing lower extremity edema-will have him elevate his legs as much as possible and order JANNET hose. Will check daily weights. Wound care has been consulted by Dr. Hale regarding the chest tube wound. Cough, leukocytosis. * Repeat chest x-ray tomorrow to follow pleural effusion and monitor for development of empyema * CBC tomorrow. Hypertension * BP's running higher than previous. Last few pressures have been 140's/80's. He continues on his home dose of atenolol 12.5 mg daily. Continue to monitor. . 03/04/17 13:33 Lower extremity edema - * appears to be worsening. Have asked nursing staff to place JANNET hose on lower extremities as previously ordered. Have also asked nursing staff to obtain daily weights as previously ordered. Will give patient a one-time dose of Lasix 40 milligrams 1 now. Will then start 20 twice a day tomorrow. Cough, leukocytosis. * Chest x-ray obtained today does show an increase in pleural effusion on the right. Again, will increase aggressive diuresing as indicated above. Status post chest tube for right-sided hemothorax, right 8th through 12th rib fractures. * Wound care has been consulted by Dr. Hale regarding the chest tube wound. Hypertension * BP's running normal. Continue on current regimen. Monitor for hypotension. Given addition of Lasix BRIANNE - continue home BiPAP Anemia * Hemoglobin remains stable continues at 10.4 Thrombocytosis * Suspect reactive. Will monitor.
[2017-03-04] MEDS: LIDOCAINE PATCH REMOVAL TOP SCH (20:38)
[2017-03-05] MEDS: ACETAMINOPHEN 500 MG TABLET PO SCH ×6 (06:06→21:48)
--- NOTE | 2017-03-05 06:58 | Pharmacy Consult ---
Pharmacy Consult-Warfarin - Laboratory Information 03/01/17 03/02/17 03/03/17 05:05 04:42 04:35 INR 1.74 H 2.49 H 2.76 H 03/04/17 03/05/17 04:38 04:31 INR 3.07 H 3.05 H - Consult Information COUMADIN CONSULT (Recurring): Today's INR = 3.05. Will give Warfarin 1mg today. Will continue to monitor & make adjustments accordingly. Thank you.
[2017-03-05] MEDS: ATENOLOL 25 MG TABLET PO SCH (08:22)
[2017-03-05] MEDS: COENZYME Q-10 200mg TABLET PO SCH (08:22)
[2017-03-05] MEDS: EZETIMIBE 10 MG TABLET PO SCH (08:23)
[2017-03-05] MEDS: MULTI-VITAMIN + MINERAL TABLET PO SCH (08:23)
[2017-03-05] MEDS: CALCIUM CARBONATE Chewable 500mg TABLET PO SCH (08:23)
[2017-03-05] MEDS: LIDOCAINE 5% PATCH TOP SCH (08:45)
[2017-03-05] MEDS: POLYETHYL GLYCOL 3350 17gm PACKET PO SCH (08:48)
[2017-03-05] MEDS ORDERED: FUROSEMIDE 20 MG TABLET PO SCH (09:00)
--- NOTE | 2017-03-05 09:57 | Progress Note ---
<Kassidy Lema V - Last Filed: 03/05/17 10:11> Subjective: Jose Manuel is seen today while working with therapy. He complains of mild right lateral chest wall pain at the location of rib fractures. Continues to have significant ecchymosis to right side. He denies feeling short of breath although breath sounds are diminished on the right. continued pedal edema present however is improved with jannet hose on. Objective Vital signs: Temperature 98.3 F 03/05/17 07:39 Pulse Rate 103 H 03/05/17 07:39 Respiratory Rate 12 03/05/17 07:39 Blood Pressure 150/84 H 03/05/17 07:39 Pulse Oximetry 95 03/05/17 07:39 Oxygen Delivery Method Room Air Weight: 183 lb 10.321 oz - Constitutional Present: well nourished, well developed - Routine HEENT Exam Eye: Present: EOMI ENT: Present: mucous membranes moist, dentition normal - Routine Respiratory Exam Absent: wheezes Comments: Clear left, diminished right - Routine Cardiovascular Exam Present: RRR, S1, S2. Absent: murmur - Routine Abdominal Exam Present: soft, normoactive bowel sounds, non distended. Absent: tenderness - Routine Extremities Exam Present: edema (bilateral lower ext), full ROM - Routine Back/Spine/Pelvis Exam Back/Spine: Present: full ROM - Routine Skin Exam Present: intact, dry, warm - Routine Neurological Exam Present: alert, oriented X3, CN II-XII intact - Routine Lymphatic Exam Lymphatic: Absent: adenopathy - Routine Psychiatric Exam Present: normal affect, normal thought process Results - Labs CBC & Chem 7: 03/04/17 14:22 03/04/17 14:22 Microbiology Results: Microbiology 03/01/17 16:06 Sputum, Expectorated Gram Stain - Final 03/01/17 16:06 Sputum, Expectorated Sputum Culture - Final Assessment and Plan (1) Hemothorax on right Current visit: Yes Status: Acute Assessment and Plan: Impression Bilateral lower extremity edema Leukocytosis Thrombocytosis Right posterior rib fx 8-12 with hemothorax - chest tube from 02/16-02/25 Atrial fibrillation Chronic anticoagulation with Coumadin Anemia - ABLA Parkinson's HTN BRIANNE -Home BiPAP BPH Asthma Cataracts Plan- 03/05/17 Pleural Effusion- * Will hold Coumadin given INR is elevated at 3.05. Suspect patient may require thoracentesis tap for treatment of pleural effusion. This will likely need to be done on Wednesday 03/07 when INR has decreased. Overall, he appears to be asymptomatic denies feeling dyspnea. Lower extremity edema - * Continue with JANNET hose to bilateral lower extremity for compression. Continue with Lasix 20 milligrams twice a day Leukocytosis. * Given continued psychosis, accompanied with chest x-ray. Will obtain blood cultures and sputum culture. Will start Unasyn 3 gm IV every 6 hours for antimicrobial coverage. Status post chest tube for right-sided hemothorax, right 8th through 12th rib fractures. * Wound with dressing intact. No drainage noted. Significant ecchymosis to entire right side of chest wall. Continue to utilize oral pain medications as well as topical Lidoderm patch. Thrombocytosis * Suspect acute reactive. Will monitor. Anemia * Hemoglobin remains stable continues at 10.8- continue to monitor Hypertension * BP's running normal. Continue on current regimen. Monitor for hypotension. Given addition of Lasix BRIANNE * continue home BiPAP Case discussed orders and plan of care with attending, Dr Krause Sepsis Assessment - Evaluation Sepsis screening result: No Definite Risk Hospital Course Summary Disclaimer: The visit summary below is not to be considered part of the above Progress Note. Hospital Course: 03/01/17 - Hospital consult Status post chest tube for right-sided hemothorax, right 8th through 12th rib fractures. * Monitor sats and breathing closely. * Encourage incentive spirometry, albuterol treatments if needed. Cough, leukocytosis. * SIRS 2/4 = tachycardia; WBC >12,000 * qSOFA = 0/3 * CXR shows atelectasis/pleural effusion right base and small apical pneumothorax- will follow * Consult speech therapy, he is at risk for aspiration with underlying Parkinson 's and acute debility Atrial fibrillation, on Coumadin * Consult pharmacy to manage Coumadin dose * INR today is 1.7, will start Lovenox daily until INR is therapeutic * Goal INR is 2.0-3.0 Hypertension * monitor BP - had hypotension in acute setting, which has resolved * Continue atenolol. ABLA * Hemoglobin 10.8 on admit, follow periodically Thrombocytosis * Platelet level and increased from [place]. * Suspect reactive. Will monitor. 03/02/17 CPAP resumed (OK per [facility] team) Lovenox discontinued as INR is therapeutic. Continue coumadin for atrial fibrillation CXR shows right pleural effusion and small apical pneumothorax - repeat CXR later this week. WBC averaging 12,000. No indication for antibiotics at this point given absence of ongoing fever and minimal leukocytosis. Sputum culture is pending. Continue atenolol for hypertension. 03/03/17 Increasing lower extremity edema-will have him elevate his legs as much as possible and order JANNET hose. Will check daily weights. Wound care has been consulted by Dr. Hale regarding the chest tube wound. Cough, leukocytosis. * Repeat chest x-ray tomorrow to follow pleural effusion and monitor for development of empyema * CBC tomorrow. Hypertension * BP's running higher than previous. Last few pressures have been 140's/80's. He continues on his home dose of atenolol 12.5 mg daily. Continue to monitor. . 03/04/17 13:33 Lower extremity edema - * appears to be worsening. Have asked nursing staff to place JANNET hose on lower extremities as previously ordered. Have also asked nursing staff to obtain daily weights as previously ordered. Will give patient a one-time dose of Lasix 40 milligrams 1 now. Will then start 20 twice a day tomorrow. Cough, leukocytosis. * Chest x-ray obtained today does show an increase in pleural effusion on the right. Again, will increase aggressive diuresing as indicated above. Status post chest tube for right-sided hemothorax, right 8th through 12th rib fractures. * Wound care has been consulted by Dr. Hale regarding the chest tube wound. Hypertension * BP's running normal. Continue on current regimen. Monitor for hypotension. Given addition of Lasix BRIANNE - continue home BiPAP Anemia * Hemoglobin remains stable continues at 10.4 Thrombocytosis * Suspect reactive. Will monitor. Plan- 03/05/17 Pleural Effusion- * Will hold Coumadin given INR is elevated at 3.05. Suspect patient may require thoracentesis tap for treatment of pleural effusion. This will likely need to be done on Wednesday 03/07 when INR has decreased. Overall, he appears to be asymptomatic denies feeling dyspnea. Lower extremity edema - * Continue with JANNET hose to bilateral lower extremity for compression. Continue with Lasix 20 milligrams twice a day Leukocytosis. * Given continued psychosis, accompanied with chest x-ray. Will obtain blood cultures and sputum culture. Will start Unasyn 3 gm IV every 6 hours for antimicrobial coverage. Status post chest tube for right-sided hemothorax, right 8th through 12th rib fractures. * Wound with dressing intact. No drainage noted. Significant ecchymosis to entire right side of chest wall. Continue to utilize oral pain medications as well as topical Lidoderm patch. Thrombocytosis * Suspect acute reactive. Will monitor. Anemia * Hemoglobin remains stable continues at 10.8- continue to monitor Hypertension * BP's running normal. Continue on current regimen. Monitor for hypotension. Given addition of Lasix BRIANNE * continue home BiPAP Case discussed orders and plan of care with attending, Dr Krause <Symone rKause - Last Filed: 03/05/17 16:04> Objective Vital signs: Temperature 98.3 F 03/05/17 07:39 Pulse Rate 103 H 03/05/17 07:39 Respiratory Rate 12 03/05/17 07:39 Blood Pressure 150/84 H 03/05/17 07:39 Pulse Oximetry 95 03/05/17 07:39 Oxygen Delivery Method Room Air Results - Labs CBC & Chem 7: 03/05/17 10:49 03/05/17 10:49 Microbiology Results: Microbiology 03/05/17 10:49 Peripheral/Iv Start Blood Culture - Preliminary Culture Initiated - Results Pending 03/05/17 10:49 Peripheral/Iv Start Blood Culture - Preliminary Culture Initiated - Results Pending 03/01/17 16:06 Sputum, Expectorated Gram Stain - Final 03/01/17 16:06 Sputum, Expectorated Sputum Culture - Final Assessment and Plan (1) Hemothorax on right Current visit: Yes Status: Acute Assessment and Plan: I have independently evaluated and examined this patient. I reviewed the chart, the patient's history, and the YACHT RIGGER/PA's documented findings as above. We discussed and formulated the assessment and plan as above with additions as below. The patient was seen 10:30. With his at bedside. She is sitting up at the site of his bed. He has not used his incentive spirometer today. He has been eating primarily salads. He was encouraged to use since incentive spirometer at least 10 times every hour using a pillow for support of his right ribs. In general, the patient is alert and oriented 3, cooperative with exam, and in no respiratory distress. HEENT: Head is atraumatic, normocephalic, no conjunctival petechiae, no oral thrush, mucous membranes are moist and pink. Lungs: Decreased breath sounds CV: Regular rate and rhythm without murmur Abdomen: Soft, nontender, bowel sounds are present, there is no guarding no rebound. Extremities: No clubbing, no cyanosis, 1+ edema. Skin: Warm and dry no sign of rash Neuro: Patient is alert Plan: We'll have the patient increase his protein intake. Discussed what options that would include. the primary concern is his right pleural effusion which could potentially be an empyema on the right. His thrombocytosis could represent an acute phase reactant that could represent formation of an abscess. He is on anticoagulation which will be held for now pending possible thoracentesis on Tuesday. We'll start amp sulbactam and monitor. Hospital Course Summary Disclaimer: The visit summary below is not to be considered part of the above Progress Note.
[2017-03-05] MEDS: AMPICILLIN/SULBACTAM 3 G in NS 100 ML IV SCH ×3 (10:55→20:37)
[2017-03-05] MEDS ORDERED: FALL RISK - PHARMACY CONSULT XX ONE (11:46)
[2017-03-05] MEDS ORDERED: WARFARIN 1 MG TABLET PO SCH (12:00)
[2017-03-05] MEDS: FUROSEMIDE 20 MG TABLET PO SCH (14:55)
[2017-03-05] MEDS: SALINE FLUSH 10ml SYRINGE IV PRN ×2 (20:52→21:26)
[2017-03-06] MEDS: LIDOCAINE PATCH REMOVAL TOP SCH ×2 (02:23→21:39)
[2017-03-06] MEDS: AMPICILLIN/SULBACTAM 3 G in NS 100 ML IV SCH ×4 (02:24→20:46)
[2017-03-06] MEDS: SALINE FLUSH 10ml SYRINGE IV PRN (02:24)
[2017-03-06] MEDS: ACETAMINOPHEN 500 MG TABLET PO SCH ×5 (06:03→20:20)
--- NOTE | 2017-03-06 06:49 | Pharmacy Consult ---
Pharmacy Consult-Warfarin - Laboratory Information 03/01/17 03/02/17 03/03/17 05:05 04:42 04:35 INR 1.74 H 2.49 H 2.76 H 03/04/17 03/05/17 03/06/17 04:38 04:31 04:29 INR 3.07 H 3.05 H 2.90 H - Consult Information COUMADIN CONSULT (Recurring): Today's INR = 2.90. Will give NO Warfarin today. (Thoracentesis on 03/07) Will continue to monitor & make adjustments accordingly. Thank you.
[2017-03-06] MEDS: LIDOCAINE 5% PATCH TOP SCH (08:56)
[2017-03-06] MEDS: CALCIUM CARBONATE Chewable 500mg TABLET PO SCH (08:58)
[2017-03-06] MEDS: COENZYME Q-10 200mg TABLET PO SCH (08:59)
[2017-03-06] MEDS: POLYETHYL GLYCOL 3350 17gm PACKET PO SCH (08:59)
[2017-03-06] MEDS: EZETIMIBE 10 MG TABLET PO SCH (08:59)
[2017-03-06] MEDS: MULTI-VITAMIN + MINERAL TABLET PO SCH (08:59)
[2017-03-06] MEDS: ATENOLOL 25 MG TABLET PO SCH (08:59)
[2017-03-06] MEDS: FUROSEMIDE 20 MG TABLET PO SCH ×2 (09:00→14:46)
--- NOTE | 2017-03-06 09:03 | Progress Note ---
Subjective: Mr. Tripathi is seen this morning in follow up for his recent fall resulting in multiple right sided rib fractures and hemothorax. He is seen while sitting in the dining room, having just finished breakfast. He is in good spirits and denies any complaints including no chest pain, shortness of breath, abdominal pain, nausea, vomiting or dysuria. He does admit that he does not like his IV. He states that he slept ok with his CPAP last night and his appetite is good. Bowels are moving. On exam, he is alert and orientated x 3 without signs of distress. Cardiac exam reveals irregular irregular rate and rhythm consistent with his history of afib. Breath sounds are diminished on the right as compared to left without signs of respiratory distress. Abdomen is soft, nontender with active bowel sounds. 2+ edema noted to bilateral lower extremities with JANNET hose present. Labs on 03/05 revealed improved leukocytosis with WBC 12.7 (WBC 14.8 on 03/04), hemoglobin stable at 10.6 and persistent thrombocytosis with platelets 696 (Plt 731 on 03/04). INR today remains elevated at 2.90 but trending down. BMP stable with sodium 139, potassium 4.0, BUN 22, SCr 0.9 and glucose 94. Blood cultures pending. Objective Vital signs: Temperature 98.6 F 03/06/17 07:46 Pulse Rate 91 03/06/17 07:46 Respiratory Rate 20 03/06/17 07:46 Blood Pressure 116/65 03/06/17 07:46 Pulse Oximetry 94 03/06/17 07:46 Oxygen Delivery Method Room Air Weight: 183 lb 3.266 oz - Constitutional Present: no acute distress, well nourished, well developed, cooperative - Routine HEENT Exam Head: Present: normocephalic, atraumatic Eye: Present: PERRL. Absent: conjunctival icterus ENT: Present: mucous membranes moist - Routine Respiratory Exam Present: decreased breath sounds (right). Absent: accessory muscle use, dyspnea , rales, respiratory distress, rhonchi, stridor, wheezes, crackles - Routine Cardiovascular Exam Present: irregularly irregular - Routine Abdominal Exam Present: soft, normoactive bowel sounds, non distended, non tender - Routine Extremities Exam Present: edema (2+ bilateral lower extremities; JANNET hose present), non tender, pulses intact. Absent: cyanosis, clubbing - Routine Back/Spine/Pelvis Exam Back/Spine: Present: full ROM. Absent: vertebral tenderness - Routine Musculoskeletal Exam Musculoskeletal: Present: no clubbing or cyanosis, no tenderness, moving extremities well - Routine Skin Exam Present: intact, dry, warm - Routine Neurological Exam Present: alert, oriented X3, moving all extremities, normal speech - Routine Psychiatric Exam Present: normal affect, cooperative Results - Labs CBC & Chem 7: 03/05/17 10:49 03/05/17 10:49 Microbiology Results: Microbiology 03/05/17 10:49 Peripheral/Iv Start Blood Culture - Preliminary Culture Initiated - Results Pending 03/05/17 10:49 Peripheral/Iv Start Blood Culture - Preliminary Culture Initiated - Results Pending 03/01/17 16:06 Sputum, Expectorated Gram Stain - Final 03/01/17 16:06 Sputum, Expectorated Sputum Culture - Final Assessment and Plan (1) Hemothorax on right Current visit: Yes Status: Acute Resuscitation Status: Full Code Assessment and Plan: 03/06/2017 - [place]. Pleural Effusion- * Continue to hold Coumadin; INR remains elevated at 2.90, trending down. Pharmacy to continue to manage and will recheck in AM. Anticipate thoracentesis for treatment of pleural effusion tomorrow, Wednesday 03/07, when INR has decreased. Overall, he remains asymptomatic and denies feeling dyspnea. Lower extremity edema - * Continue with JANNET hose to bilateral lower extremity for compression. Continue with Lasix 20 milligrams twice a day. Monitor weight daily. Leukocytosis. * WBC trending down at 12.7 (WBC 14.8 on 03/04). Continue to monitor trends. Will recheck CBC in AM to monitor blood counts. Continue Unasyn 3 gm IV every 6 hours for antimicrobial coverage. Blood cultures pending. Sputum culture showed >10 squamous epithelial cells and no culture was preformed. Status post chest tube for right-sided hemothorax, right 8th through 12th rib fractures. * Wound with dressing intact. No drainage noted. Significant ecchymosis to entire right side of chest wall. Continue to utilize oral pain medications as well as topical Lidoderm patch. Monitor closely for constipation and utilize bowel motivation as indicated. Thrombocytosis. * Suspect acute reactive. Platelets trending down at 696 (Plt 731 on 03/04). Continue to monitor. Repeat CBC in AM to monitor blood counts. Anemia. * Hemoglobin remains stable continues at 10.6 - continue to monitor. Repeat CBC in AM to monitor blood counts. Hypertension. * BP's running normal. Continue on current regimen including atenolol. Monitor for hypotension. Continue to monitor electrolytes. Repeat BMP in AM. BRIANNE * continue home BiPAP. A-fib, chronic. * Chronic anticoagulation with Coumadin - continue to hold Coumadin in anticipation of thoracentesis on 03/07. INR trending down, currently 2.90. Pharmacy to continue to manage. Case discussed orders and plan of care with attending, Dr Krause - Time spent with patient 25 - 35 minutes Sepsis Assessment - Evaluation Sepsis screening result: No Definite Risk Hospital Course Summary Disclaimer: The visit summary below is not to be considered part of the above Progress Note. Hospital Course: 03/01/17 - Hospital consult Status post chest tube for right-sided hemothorax, right 8th through 12th rib fractures. * Monitor sats and breathing closely. * Encourage incentive spirometry, albuterol treatments if needed. Cough, leukocytosis. * SIRS 2/4 = tachycardia; WBC >12,000 * qSOFA = 0/3 * CXR shows atelectasis/pleural effusion right base and small apical pneumothorax- will follow * Consult speech therapy, he is at risk for aspiration with underlying Parkinson 's and acute debility Atrial fibrillation, on Coumadin * Consult pharmacy to manage Coumadin dose * INR today is 1.7, will start Lovenox daily until INR is therapeutic * Goal INR is 2.0-3.0 Hypertension * monitor BP - had hypotension in acute setting, which has resolved * Continue atenolol. ABLA * Hemoglobin 10.8 on admit, follow periodically Thrombocytosis * Platelet level and increased from [place]. * Suspect reactive. Will monitor. 03/02/17 CPAP resumed (OK per [facility] Trauma team) Lovenox discontinued as INR is therapeutic. Continue coumadin for atrial fibrillation CXR shows right pleural effusion and small apical pneumothorax - repeat CXR later this week. WBC averaging 12,000. No indication for antibiotics at this point given absence of ongoing fever and minimal leukocytosis. Sputum culture is pending. Continue atenolol for hypertension. 03/03/17 Increasing lower extremity edema-will have him elevate his legs as much as possible and order JANNET hose. Will check daily weights. Wound care has been consulted by Dr. Hale regarding the chest tube wound. Cough, leukocytosis. * Repeat chest x-ray tomorrow to follow pleural effusion and monitor for development of empyema * CBC tomorrow. Hypertension * BP's running higher than previous. Last few pressures have been 140's/80's. He continues on his home dose of atenolol 12.5 mg daily. Continue to monitor. . 03/04/17 13:33 Lower extremity edema - * appears to be worsening. Have asked nursing staff to place JANNET hose on lower extremities as previously ordered. Have also asked nursing staff to obtain daily weights as previously ordered. Will give patient a one-time dose of Lasix 40 milligrams 1 now. Will then start 20 twice a day tomorrow. Cough, leukocytosis. * Chest x-ray obtained today does show an increase in pleural effusion on the right. Again, will increase aggressive diuresing as indicated above. Status post chest tube for right-sided hemothorax, right 8th through 12th rib fractures. * Wound care has been consulted by Dr. Hale regarding the chest tube wound. Hypertension * BP's running normal. Continue on current regimen. Monitor for hypotension. Given addition of Lasix BRIANNE - continue home BiPAP Anemia * Hemoglobin remains stable continues at 10.4 Thrombocytosis * Suspect reactive. Will monitor. Plan- 03/05/17 Pleural Effusion- * Will hold Coumadin given INR is elevated at 3.05. Suspect patient may require thoracentesis tap for treatment of pleural effusion. This will likely need to be done on Wednesday 03/07 when INR has decreased. Overall, he appears to be asymptomatic denies feeling dyspnea. Lower extremity edema - * Continue with JANNET hose to bilateral lower extremity for compression. Continue with Lasix 20 milligrams twice a day Leukocytosis. * Given continued psychosis, accompanied with chest x-ray. Will obtain blood cultures and sputum culture. Will start Unasyn 3 gm IV every 6 hours for antimicrobial coverage. Status post chest tube for right-sided hemothorax, right 8th through 12th rib fractures. * Wound with dressing intact. No drainage noted. Significant ecchymosis to entire right side of chest wall. Continue to utilize oral pain medications as well as topical Lidoderm patch. Thrombocytosis * Suspect acute reactive. Will monitor. Anemia * Hemoglobin remains stable continues at 10.8- continue to monitor Hypertension * BP's running normal. Continue on current regimen. Monitor for hypotension. Given addition of Lasix BRIANNE * continue home BiPAP Case discussed orders and plan of care with attending, Dr Krause 03/06/17 09:15 - [place]. Pleural Effusion- * Continue to hold Coumadin; INR remains elevated at 2.90, trending down. Pharmacy to continue to manage and will recheck in AM. Anticipate thoracentesis for treatment of pleural effusion tomorrow, Wednesday 03/07, when INR has decreased. Overall, he remains asymptomatic and denies feeling dyspnea. Lower extremity edema - * Continue with JANNET hose to bilateral lower extremity for compression. Continue with Lasix 20 milligrams twice a day. Monitor weight daily. Leukocytosis. * WBC trending down at 12.7 (WBC 14.8 on 03/04). Continue to monitor trends. Will recheck CBC in AM to monitor blood counts. Continue Unasyn 3 gm IV every 6 hours for antimicrobial coverage. Blood cultures pending. Sputum culture showed >10 squamous epithelial cells and no culture was preformed. Status post chest tube for right-sided hemothorax, right 8th through 12th rib fractures. * Wound with dressing intact. No drainage noted. Significant ecchymosis to entire right side of chest wall. Continue to utilize oral pain medications as well as topical Lidoderm patch. Monitor closely for constipation and utilize bowel motivation as indicated. Thrombocytosis. * Suspect acute reactive. Platelets trending down at 696 (Plt 731 on 03/04). Continue to monitor. Repeat CBC in AM to monitor blood counts. Anemia. * Hemoglobin remains stable continues at 10.6 - continue to monitor. Repeat CBC in AM to monitor blood counts. Hypertension. * BP's running normal. Continue on current regimen including atenolol. Monitor for hypotension. Continue to monitor electrolytes. Repeat BMP in AM. BRIANNE * continue home BiPAP. A-fib, chronic. * Chronic anticoagulation with Coumadin - continue to hold Coumadin in anticipation of thoracentesis on 03/07. INR trending down, currently 2.90. Pharmacy to continue to manage. Case discussed orders and plan of care with attending, Dr Krause
[2017-03-07] MEDS: AMPICILLIN/SULBACTAM 3 G in NS 100 ML IV SCH ×4 (02:44→21:05)
[2017-03-07] MEDS: SALINE FLUSH 10ml SYRINGE IV PRN ×3 (02:44→21:20)
[2017-03-07] MEDS: ACETAMINOPHEN 500 MG TABLET PO SCH ×6 (02:45→22:21)
--- NOTE | 2017-03-07 08:46 | XRay Report ---
LOCATION OF DICTATION: [place] EXAM: XR chest 2V HISTORY: pleural effusion COMPARISON: March 04, 2017 and March 01, 2017. FINDINGS: There is a stable large right pleural effusion with subjacent atelectasis or infiltrates. The left lung remains clear. There is no pneumothorax. The heart size is within normal limits. Central pulmonary vasculature is within normal limits. Chronic healed left clavicular fracture and chronic healed right rib fracture deformities. 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 IMPRESSION: 1. Stable large right pleural effusion with subjacent atelectasis or infiltrates. Continued follow-up is recommended. Left lung is clear 2. Heart size is within normal limits. 3. Chronic healed left clavicular and right rib fractures. .
[2017-03-07] MEDS: POLYETHYL GLYCOL 3350 17gm PACKET PO SCH (08:48)
[2017-03-07] MEDS: COENZYME Q-10 200mg TABLET PO SCH (08:50)
[2017-03-07] MEDS: CALCIUM CARBONATE Chewable 500mg TABLET PO SCH (08:50)
[2017-03-07] MEDS: LIDOCAINE 5% PATCH TOP SCH (08:50)
[2017-03-07] MEDS: EZETIMIBE 10 MG TABLET PO SCH (08:51)
[2017-03-07] MEDS: MULTI-VITAMIN + MINERAL TABLET PO SCH (08:51)
[2017-03-07] MEDS: FUROSEMIDE 20 MG TABLET PO SCH ×2 (08:51→14:46)
[2017-03-07] MEDS: ATENOLOL 25 MG TABLET PO SCH (08:51)
[2017-03-07] MEDS ORDERED: PHYTONADIONE 5 MG/2.5 ML ORAL LIQUID PO ONE (09:54)
--- NOTE | 2017-03-07 11:46 | IRU Progress Note ---
- Subjective/Serverity of Illness Mr. Tripathi is evaluated in his room. He is resting after therapy. Symptomatically he seems to be doing fine. Does have some peripheral edema. Reports some dyspnea with activity but otherwise in no acute distress. He reports that his pain from the ribs is adequately controlled at present. I have reviewed the extensive notes from the hospitalist service over the last several days. They have initiated Unasyn treatment for his leukocytosis and thrombocytosis. He does have a fairly large pleural effusion on the right which is increased from the previous chest x-ray. He is known to have had a previous hemothorax from his rib fractures. Yarn Winder has been consulted. His Coumadin has been held in anticipation of possible thoracentesis. Patient reports that his appetite is not great. He would like a reduction in his bowel medication as he thinks he is going adequately. I discussed this case at length with his as well. She reports that he is having crying episodes. He is frustrated that he cannot go home. In addition he does have some underlying memory loss which no doubt is playing a role in this. We discussed the use of an antidepressant with his and she is open to that. At this time we will do the followin. Reduce bowel medications 2. Start citalopram 3. Continue working with him with therapy while medical management is ongoing by the hospitalist team. Exam Vital Signs: Temperature 98.6 F 03/07/17 09:43 Pulse Rate 101 H 03/07/17 07:00 Respiratory Rate 18 03/07/17 07:00 Blood Pressure 133/72 03/07/17 07:00 Pulse Oximetry 96 03/07/17 07:00 Oxygen Delivery Method Room Air Height: 1.68 m Weight: 83 kg Body Mass Index: 29.5 - Constitutional Present: no acute distress Comments: The patient is awake, alert and oriented and in no acute distress. He does appear to be a bit depressed. Pupils are equal. The neck is supple. Chest: Clear to auscultation on the left with markedly reduced lower one half of right lung field. Cor: irreg rhythm with no robin, click nor murmur Abd: soft with normo-active bowel sounds. There are no masses, no tenderness and no guarding. Extremities: 1-2+ edema, improved. Right chest wound site unchanged. - Routine HEENT Exam Head: Present: normocephalic Eye: Present: EOMI ENT: Present: mucous membranes moist - Routine Neck Exam Present: supple - Routine Respiratory Exam Present: dyspnea. Absent: accessory muscle use - Routine Cardiovascular Exam Present: irregularly irregular - Routine Abdominal Exam Present: soft, normoactive bowel sounds, non distended, non tender - Routine Extremities Exam Present: edema - Routine Skin Exam Present: wounds - Routine Neurological Exam Present: alert, CN II-XII intact - Routine Psychiatric Exam Present: cooperative, depressed Results IRU - Labs Labs: I have reviewed the extensive notes from the hospitalist service over the weekend. Also reviewed chest radiograph and lab work. Sepsis Assessment - Evaluation Sepsis screening result: No Definite Risk IRU A/P (1) Hemothorax on right Current visit: Yes Status: Acute Continued evidence of hemothorax/pleural effusion on the right. At this point it may be difficult to do thoracentesis because of the duration of the abnormality. Pulmonology has been consulted. Don't know if he would benefit from a more extensive procedure such as pleurodesis or not. (2) Ribs, multiple fractures Qualifiers: Encounter type: subsequent encounter Fracture type: closed Laterality: right Fracture healing: with routine healing Qualified Code(s): S22.41XD - Multiple fractures of ribs, right side, subsequent encounter for fracture with routine healing Current visit: Yes Status: Acute Pain is reasonably well controlled. (3) Dysphagia, oropharyngeal phase Current visit: Yes Status: Chronic (4) Parkinsons disease Current visit: Yes Status: Chronic (5) Pneumothorax on right Current visit: Yes Status: Resolved (6) Leukocytosis Qualifiers: Leukocytosis type: other Qualified Code(s): D72.828 - Other elevated white blood cell count Current visit: Yes Status: Acute Hospitalist service started Unasyn over the weekend. (7) Depression Qualifiers: Depression Type: reactive depression Qualified Code(s): F32.9 - Major depressive disorder, single episode, unspecified Current visit: Yes Status: Acute I imagine his crying episodes are multifactorial and related to his memory loss , frustration about not getting home etc. This may well be a reactive depression and as such antidepressants by be of less benefit. However it is reasonable to try citalopram and this was discussed today. DVT Prophylaxis: Coumadin Resuscitation Status: Full Code - Course Hospital Course: Kyler Hale MD: 03/01/17 10:31 He is settling into the acute rehabilitation unit well. He is cooperating with therapy. White count is a bit up and there is some purulence from the chest tube site without surrounding erythema. There is report of dysphagia and coughing with swallowing. Speech therapy will be consulted. 03/02/17 10:15 Patient is making progress. His Parkinson's disease is a limitation on his progress however. He is walking with contact-guard assistance and during lower extremity dressing with contact-guard assistance. His multiple major trauma from his multiple right rib fractures is limiting his progress as well. We anticipate continued improvement over the next several days with a planned dismissal on March 07. Stool softener is discontinued today. Wound looks about the same and his white count remains elevated at 12,000. 03/04/17 10:48 Patient is making slow progress. Still requires standby assistance. Leukocytosis and thrombocytosis remain. Some progression in the pleural effusion on chest radiograph. 03/07/17 11:49 Does have evidence of reactive depression. We will start citalopram. Medically he does have an increasing effusion on the right. Pulmonology has been consulted. Atrial fibrillation with anticoagulation noted. - Interventions to Obtain Goals PT Treatment Plan: Balance/Proprioception, Functional Activities, Gait Training , Patient/Family Education, Therapeutic Exercise OT Treatment Plan: ADL (Basic Care), Balance Training, IADL, Pt./Family Education, Ther. Exercise for ADL Goals Progress/Modifications: Patient is improving with transfers and ambulation. Today we'll start citalopram , await pulmonology consultation and reduce his bowel medications (miralax).
[2017-03-07] MEDS: CITALOPRAM 10 MG TABLET PO SCH (14:46)
--- NOTE | 2017-03-07 16:50 | Progress Note ---
Subjective: Mr. Tripathi is seen in follow-up resting in his room. He has no complaints at this time. He is ready to go home. He is having no pain while at rest. He states he worked hard in therapy and that wore him out. No complaints of shortness of breath or cough. He continues on Unasyn for leukocytosis. Since starting that, his white count has come down from 14.8 to 9.7. He has had no recent fever. Her repeat chest x-ray today shows a stable large right pleural effusion with subjacent atelectasis or infiltrates. Dr. Marrero should be seeing patient today in consult to determine if he would be a candidate for thoracentesis. Patient's INR at 8:00 this morning was 2.2. Patient was given vitamin K 2.5 mg at 1043. Objective Vital signs: Temperature 98.7 F 03/07/17 15:38 Pulse Rate 86 03/07/17 15:38 Respiratory Rate 18 03/07/17 15:38 Blood Pressure 116/67 03/07/17 15:38 Pulse Oximetry 95 03/07/17 15:38 Oxygen Delivery Method Room Air Weight: 84.4 kg - Constitutional Present: mild distress, well nourished, well developed - Routine HEENT Exam Head: Present: normocephalic, atraumatic Eye: Present: EOMI - Routine Respiratory Exam Present: CTA bilaterally, crackles (left base), diminished air movement (lower half of the right lung field). Absent: wheezes - Routine Cardiovascular Exam Present: irregular rhythm. Absent: murmur - Routine Abdominal Exam Present: soft, normoactive bowel sounds, non distended. Absent: tenderness - Routine Extremities Exam Present: edema (2+ bilateral with JANNET hose), normal capillary refill - Routine Skin Exam Present: dry, warm - Routine Neurological Exam Present: alert, oriented X3, CN II-XII intact - Routine Lymphatic Exam Lymphatic: Absent: adenopathy - Routine Psychiatric Exam Present: normal affect, cooperative Results - Labs CBC & Chem 7: 03/07/17 04:10 03/07/17 04:10 Microbiology Results: Microbiology 03/05/17 10:49 Peripheral/Iv Start Blood Culture - Preliminary No Growth After 2 Days 03/05/17 10:49 Peripheral/Iv Start Blood Culture - Preliminary No Growth After 2 Days 03/01/17 16:06 Sputum, Expectorated Gram Stain - Final 03/01/17 16:06 Sputum, Expectorated Sputum Culture - Final - Imaging and Cardiology Chest x-ray Additional comments: Chest x-ray MPRESSION: 1. Stable large right pleural effusion with subjacent atelectasis or infiltrates. Continued follow-up is recommended. Left lung is clear 2. Heart size is within normal limits. 3. Chronic healed left clavicular and right rib fractures. Assessment and Plan (1) Hemothorax on right Current visit: Yes Status: Acute Assessment and Plan: Impression Status post 8th through 12th right sided rib fractures and hemothorax secondary to fall Pleural effusion Leukocytosis Lower extremity edema Thrombocytosis Anemia Hypertension Obstructive sleep apnea A. fib-chronic Plan Continue to hold Coumadin. Will check INR now and await recommendation from Dr. Marrero. Continue with JANNET hose to bilateral lower extremity for compression. Elevate legs. Continue with Lasix 20 milligrams twice a day. Monitor weight daily. WBC trending down since starting antibiotics. Continue Unasyn 3 gm IV every 6 hours. Sepsis Assessment - Evaluation Sepsis screening result: No Definite Risk Hospital Course Summary Disclaimer: The visit summary below is not to be considered part of the above Progress Note. Hospital Course: 03/01/17 - Hospital consult Status post chest tube for right-sided hemothorax, right 8th through 12th rib fractures. * Monitor sats and breathing closely. * Encourage incentive spirometry, albuterol treatments if needed. Cough, leukocytosis. * SIRS 2/4 = tachycardia; WBC >12,000 * qSOFA = 0/3 * CXR shows atelectasis/pleural effusion right base and small apical pneumothorax- will follow * Consult speech therapy, he is at risk for aspiration with underlying Parkinson 's and acute debility Atrial fibrillation, on Coumadin * Consult pharmacy to manage Coumadin dose * INR today is 1.7, will start Lovenox daily until INR is therapeutic * Goal INR is 2.0-3.0 Hypertension * monitor BP - had hypotension in acute setting, which has resolved * Continue atenolol. ABLA * Hemoglobin 10.8 on admit, follow periodically Thrombocytosis * Platelet level and increased from [place]. * Suspect reactive. Will monitor. 03/02/17 CPAP resumed (OK per [place] Trauma team) Lovenox discontinued as INR is therapeutic. Continue coumadin for atrial fibrillation CXR shows right pleural effusion and small apical pneumothorax - repeat CXR later this week. WBC averaging 12,000. No indication for antibiotics at this point given absence of ongoing fever and minimal leukocytosis. Sputum culture is pending. Continue atenolol for hypertension. 03/03/17 Increasing lower extremity edema-will have him elevate his legs as much as possible and order JANNET hose. Will check daily weights. Wound care has been consulted by Dr. Hale regarding the chest tube wound. Cough, leukocytosis. * Repeat chest x-ray tomorrow to follow pleural effusion and monitor for development of empyema * CBC tomorrow. Hypertension * BP's running higher than previous. Last few pressures have been 140's/80's. He continues on his home dose of atenolol 12.5 mg daily. Continue to monitor. . 03/04/17 13:33 Lower extremity edema - * appears to be worsening. Have asked nursing staff to place JANNET hose on lower extremities as previously ordered. Have also asked nursing staff to obtain daily weights as previously ordered. Will give patient a one-time dose of Lasix 40 milligrams 1 now. Will then start 20 twice a day tomorrow. Cough, leukocytosis. * Chest x-ray obtained today does show an increase in pleural effusion on the right. Again, will increase aggressive diuresing as indicated above. Status post chest tube for right-sided hemothorax, right 8th through 12th rib fractures. * Wound care has been consulted by Dr. Hale regarding the chest tube wound. Hypertension * BP's running normal. Continue on current regimen. Monitor for hypotension. Given addition of Lasix BRIANNE - continue home BiPAP Anemia * Hemoglobin remains stable continues at 10.4 Thrombocytosis * Suspect reactive. Will monitor. Plan- 03/05/17 Pleural Effusion- * Will hold Coumadin given INR is elevated at 3.05. Suspect patient may require thoracentesis tap for treatment of pleural effusion. This will likely need to be done on Wednesday 03/07 when INR has decreased. Overall, he appears to be asymptomatic denies feeling dyspnea. Lower extremity edema - * Continue with JANNET hose to bilateral lower extremity for compression. Continue with Lasix 20 milligrams twice a day Leukocytosis. * Given continued psychosis, accompanied with chest x-ray. Will obtain blood cultures and sputum culture. Will start Unasyn 3 gm IV every 6 hours for antimicrobial coverage. Status post chest tube for right-sided hemothorax, right 8th through 12th rib fractures. * Wound with dressing intact. No drainage noted. Significant ecchymosis to entire right side of chest wall. Continue to utilize oral pain medications as well as topical Lidoderm patch. Thrombocytosis * Suspect acute reactive. Will monitor. Anemia * Hemoglobin remains stable continues at 10.8- continue to monitor Hypertension * BP's running normal. Continue on current regimen. Monitor for hypotension. Given addition of Lasix BRIANNE * continue home BiPAP Case discussed orders and plan of care with attending, Dr Krause 03/06/17 09:15 - [place]. Pleural Effusion- * Continue to hold Coumadin; INR remains elevated at 2.90, trending down. Pharmacy to continue to manage and will recheck in AM. Anticipate thoracentesis for treatment of pleural effusion tomorrow, Wednesday 03/07, when INR has decreased. Overall, he remains asymptomatic and denies feeling dyspnea. Lower extremity edema - * Continue with JANNET hose to bilateral lower extremity for compression. Continue with Lasix 20 milligrams twice a day. Monitor weight daily. Leukocytosis. * WBC trending down at 12.7 (WBC 14.8 on 03/04). Continue to monitor trends. Will recheck CBC in AM to monitor blood counts. Continue Unasyn 3 gm IV every 6 hours for antimicrobial coverage. Blood cultures pending. Sputum culture showed >10 squamous epithelial cells and no culture was preformed. Status post chest tube for right-sided hemothorax, right 8th through 12th rib fractures. * Wound with dressing intact. No drainage noted. Significant ecchymosis to entire right side of chest wall. Continue to utilize oral pain medications as well as topical Lidoderm patch. Monitor closely for constipation and utilize bowel motivation as indicated. Thrombocytosis. * Suspect acute reactive. Platelets trending down at 696 (Plt 731 on 03/04). Continue to monitor. Repeat CBC in AM to monitor blood counts. Anemia. * Hemoglobin remains stable continues at 10.6 - continue to monitor. Repeat CBC in AM to monitor blood counts. Hypertension. * BP's running normal. Continue on current regimen including atenolol. Monitor for hypotension. Continue to monitor electrolytes. Repeat BMP in AM. BRIANNE * continue home BiPAP. A-fib, chronic. * Chronic anticoagulation with Coumadin - continue to hold Coumadin in anticipation of thoracentesis on 03/07. INR trending down, currently 2.90. Pharmacy to continue to manage. Case discussed orders and plan of care with attending, Dr Krause 03/07/17 -progress note - day #7 IRU Continue to hold Coumadin. Will check INR now and await recommendation from Dr. Marrero. Continue with JANNET hose to bilateral lower extremity for compression. Elevate legs. Continue with Lasix 20 milligrams twice a day. Monitor weight daily. WBC trending down since starting antibiotics. Continue Unasyn 3 gm IV every 6 hours.
[2017-03-07] MEDS: LIDOCAINE PATCH REMOVAL TOP SCH (21:20)
[2017-03-08] MEDS: AMPICILLIN/SULBACTAM 3 G in NS 100 ML IV SCH ×4 (03:03→20:14)
[2017-03-08] MEDS: ACETAMINOPHEN 500 MG TABLET PO SCH ×5 (06:29→23:17)
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
[2017-03-08] MEDS: ATENOLOL 25 MG TABLET PO SCH (08:29)
[2017-03-08] MEDS: CITALOPRAM 10 MG TABLET PO SCH (08:29)
[2017-03-08] MEDS: MULTI-VITAMIN + MINERAL TABLET PO SCH (08:29)
[2017-03-08] MEDS: FUROSEMIDE 20 MG TABLET PO SCH ×2 (08:30→13:52)
[2017-03-08] MEDS: EZETIMIBE 10 MG TABLET PO SCH (08:30)
[2017-03-08] MEDS: COENZYME Q-10 200mg TABLET PO SCH (08:30)
[2017-03-08] MEDS: CALCIUM CARBONATE Chewable 500mg TABLET PO SCH (08:36)
[2017-03-08] MEDS: SALINE FLUSH 10ml SYRINGE IV PRN (09:31)
--- NOTE | 2017-03-08 09:55 | IRU Progress Note ---
- Subjective/Serverity of Illness Chaz is seen in his room. He continues to work with physical therapy and occupational therapy as well as speech therapy. Swallowing is going well. Speech therapy is working with him with regard to phonation. Has been able to see improvement with his voice quality and volume. He denies actual shortness of breath with activity. He was seen yesterday by Dr. Iniguez. Anticipation for thoracentesis today due to large right pleural effusion. INR noted at 1.6. White count was down to 9700 but now is back up just slightly at 11,000. Denies any cough or sputum. He states he tries to cough to bring stuff up but is not really able to bring anything up. Exam Vital Signs: Temperature 98.2 F 03/08/17 07:44 Pulse Rate 88 03/08/17 07:44 Respiratory Rate 16 03/08/17 07:44 Blood Pressure 103/56 03/08/17 07:50 Pulse Oximetry 91 03/08/17 07:50 Oxygen Delivery Method Room Air Height: 1.68 m Weight: 86.6 kg Body Mass Index: 29.5 - Constitutional Present: no acute distress Comments: The patient is awake, alert and oriented and in no acute distress. Pupils are equal. The neck is supple. Chest: Clear to auscultation in the left lung. Continues to have reduced breath sounds in the right lower one half. Cor: irregular rhythm with no robin, click nor murmur Abd: soft with normo-active bowel sounds. There are no masses, no tenderness and no guarding. Extremities: Edema persists but improved. - Routine HEENT Exam Head: Present: normocephalic Eye: Present: EOMI - Routine Neck Exam Present: supple, full ROM - Routine Respiratory Exam Present: decreased breath sounds (On the right) - Routine Cardiovascular Exam Present: S1, S2, no murmur, irregularly irregular - Routine Abdominal Exam Present: soft, normoactive bowel sounds, non distended, non tender Results IRU - Labs Labs: Reviewed laboratory including INR and chemistries and white count. Sepsis Assessment - Evaluation Sepsis screening result: No Definite Risk IRU A/P (1) Hemothorax on right Current visit: Yes Status: Acute Continues to demonstrate large right pleural effusion. Was seen by pulmonology yesterday. Anticipation for thoracentesis today. He is largely asymptomatic at this point. (2) Ribs, multiple fractures Qualifiers: Encounter type: subsequent encounter Fracture type: closed Laterality: right Fracture healing: with routine healing Qualified Code(s): S22.41XD - Multiple fractures of ribs, right side, subsequent encounter for fracture with routine healing Current visit: Yes Status: Acute Pain seems to be adequately controlled at present. (3) Dysphagia, oropharyngeal phase Current visit: Yes Status: Chronic Swallowing is improved. Working with speech therapy and making progress, particularly with phonation (Parkinson's disease-related). (4) Parkinsons disease Current visit: Yes Status: Chronic (5) Pneumothorax on right Current visit: Yes Status: Resolved (6) Leukocytosis Qualifiers: Leukocytosis type: other Qualified Code(s): D72.828 - Other elevated white blood cell count Current visit: Yes Status: Acute White count was normal yesterday but is back up slightly today at 11,000. He remains on Unasyn. Followed by hospitalists. (7) Depression Qualifiers: Depression Type: reactive depression Qualified Code(s): F32.9 - Major depressive disorder, single episode, unspecified Current visit: Yes Status: Acute Started patient on citalopram yesterday DVT Prophylaxis: Coumadin Resuscitation Status: Full Code - Course Hospital Course: Kyler Hale MD: 03/01/17 10:31 He is settling into the acute rehabilitation unit well. He is cooperating with therapy. White count is a bit up and there is some purulence from the chest tube site without surrounding erythema. There is report of dysphagia and coughing with swallowing. Speech therapy will be consulted. 03/02/17 10:15 Patient is making progress. His Parkinson's disease is a limitation on his progress however. He is walking with contact-guard assistance and during lower extremity dressing with contact-guard assistance. His multiple major trauma from his multiple right rib fractures is limiting his progress as well. We anticipate continued improvement over the next several days with a planned dismissal on March 07. Stool softener is discontinued today. Wound looks about the same and his white count remains elevated at 12,000. 03/04/17 10:48 Patient is making slow progress. Still requires standby assistance. Leukocytosis and thrombocytosis remain. Some progression in the pleural effusion on chest radiograph. 03/07/17 11:49 Does have evidence of reactive depression. We will start citalopram. Medically he does have an increasing effusion on the right. Pulmonology has been consulted. Atrial fibrillation with anticoagulation noted. 03/08/17 09:56 Was seen by pulmonology yesterday. Thoracentesis planned for today. White count was down to 9700 yesterday but is back up slightly today. Remains on Unasyn. - Interventions to Obtain Goals PT Treatment Plan: Balance/Proprioception, Functional Activities, Gait Training , Patient/Family Education, Therapeutic Exercise OT Treatment Plan: ADL (Basic Care), Balance Training, IADL, Pt./Family Education, Ther. Exercise for ADL Goals Progress/Modifications: After thoracentesis, we will reassess his status. Anticipate dismissal soon.
--- NOTE | 2017-03-08 12:09 | IRU Team Meeting ---
IRU Team Meeting - Nursing Vital Signs: Vital Signs - 24 hr 03/07/17 15:38 03/07/17 20:27 03/08/17 07:44 Temperature 98.7 F 98.4 F 98.2 F Pulse Rate 86 86 88 Respiratory Rate 18 18 16 Blood Pressure 116/67 130/71 93/54 Pulse Oximetry 95 93 91 03/08/17 07:50 Temperature Pulse Rate Respiratory Rate Blood Pressure 103/56 Pulse Oximetry 91 Current Medications: Acetaminophen (Tylenol) 500 mg PO Q4WA [facility] Last Admin: 03/08/17 11:37 Dose: Not Given Albuterol Sulfate (Proventil Neb (0.5%)) 2.5 mg AEROSOL Q4H PRN Atenolol (Tenormin) 12.5 mg PO DAILY [facility] Last Admin: 03/08/17 08:29 Dose: 12.5 mg Calcium Carbonate (Tums) 1,000 mg PO DAILY [facility] Last Admin: 03/08/17 08:36 Dose: Not Given Carbidopa/Levodopa (Sinemet) 1 tab PO TID/E [facility] Last Admin: 03/08/17 06:29 Dose: 1 tab Citalopram Hydrobromide (Celexa) 10 mg PO DAILY [facility] Last Admin: 03/08/17 08:29 Dose: 10 mg Coenzyme Q10 (Co Q-10) 200 mg PO DAILY [facility] Last Admin: 03/08/17 08:30 Dose: 200 mg Ezetimibe (Zetia) 10 mg PO DAILY [facility] Last Admin: 03/08/17 08:30 Dose: 10 mg Furosemide (Lasix) 20 mg PO 0900,1400 [facility] Last Admin: 03/08/17 08:30 Dose: 20 mg Ampicillin Sodium/Sulbactam (Sodium 3 g/ Sodium Chloride) 100 mls @ 200 mls/hr IV Q6HR [facility] Last Infusion: 03/08/17 09:30 Dose: Infused Lidocaine (Lidoderm) 2 patch TOP DAILY [facility] Last Admin: 03/07/17 08:50 Dose: 2 patch Lidocaine HCl/Dextrose (Lidoderm Patch Removal) 2 removal TOP 2100 [facility] Last Admin: 03/07/17 21:20 Dose: 2 removal Magnesium Hydroxide (Mom) 30 ml PO DAILY PRN PRN Reason: Constipation Multivitamins/Minerals (Therapeutic - M) 1 tab PO DAILY [facility] Last Admin: 03/08/17 08:29 Dose: 1 tab Turmeric Root (Extract) 500 mg PO DAILY [facility] Oxycodone HCl (Roxicodone *Ir*) 5 mg PO Q4H PRN PRN Reason: Breakthrough pain Simethicone (Mylicon) 80 mg PO Q4H PRN PRN Reason: Gas/Bloating Sodium Chloride (Iv Flush) 10 ml IV PRN PRN PRN Reason: Flushing Last Admin: 03/08/17 09:31 Dose: 10 ml Warfarin Sodium (Coumadin Protocol) 0 [facility] NOTE [facility] Comments: Pt getting thoracentesis today. Had labs yesterday. Has a large right pleural effusion. On Unasyn for leukocytosis. Started on March 05. IV site issues noted. Speech: working with patient. Swallow is OK. Working on phonation. - Physical Therapy Sit to Supine Bed Mobility Ability: Stand By Assist/Supervision Sit to Stand Chair Transfer Ability: Stand By Assist/Supervision Comments: Doing well. Working on balance goal. Ambulated with no assistive device to dining area. - Occupational Therapy Eating Ability: Modified Independent Grooming Ability: Modified Independent - Care Plan Anticipated Length of Stay: 1 Anticipated DC Destination: Home, Self Care Interventions/Goals: Awaiting thoracentesis results. Ready to go home in next 24 hours without home health.
--- NOTE | 2017-03-08 12:58 | Operative Note ---
Date of procedure: 03/08/17 (400 ML dark blood drained under US guidance. Catheter placed and removed with no complications) Pre-op diagnosis: pleural effusion Post-op diagnosis: same Procedure: US guided thoracentesis Anesthesia: local Surgeon: Pankaj Marrero MD Estimated blood loss (mL): 0
[2017-03-08] MEDS: LIDOCAINE 5% PATCH TOP SCH (13:13)
--- NOTE | 2017-03-08 13:47 | XRay Report ---
Indication: post-thoracentesis XR chest 1V: Comparison: 03/07/2017 Technique: Single portable chest with expiratory view Findings: Patient showed no pneumothorax on the right side. There is continued significant infiltrative change and atelectatic change in the right lung base. Heart size is stable. Increased markings are seen in the left base which are accentuated by the expiratory view. Degenerative changes persist in the shoulders. Impression: Postthoracentesis expiratory film showing no pneumothorax. Patient still showed significant density and/or atelectasis in the right lower chest. .
--- NOTE | 2017-03-08 17:03 | Ultrasound Report ---
Indication: pleural effusion US thoracentesis/para nocharge: Comparison: None Technique: Real-time and color flow imaging provided Findings: Patient shows a sizable right-sided effusion with septations and areas of global atelectatic change in the lung. Skin was marked is the site of paracentesis. Impression: Ultrasound guidance for side of potential thoracentesis in the right chest. .
[2017-03-08] MEDS: LIDOCAINE PATCH REMOVAL TOP SCH (20:02)
[2017-03-09] MEDS: AMPICILLIN/SULBACTAM 3 G in NS 100 ML IV SCH ×3 (02:39→15:30)
[2017-03-09] MEDS: ACETAMINOPHEN 500 MG TABLET PO SCH ×3 (06:23→15:29)
[2017-03-09] MEDS: ATENOLOL 25 MG TABLET PO SCH (09:19)
[2017-03-09] MEDS: MULTI-VITAMIN + MINERAL TABLET PO SCH (09:19)
[2017-03-09] MEDS: EZETIMIBE 10 MG TABLET PO SCH (09:19)
[2017-03-09] MEDS: COENZYME Q-10 200mg TABLET PO SCH (09:19)
[2017-03-09] MEDS: CALCIUM CARBONATE Chewable 500mg TABLET PO SCH (09:19)
[2017-03-09] MEDS: CITALOPRAM 10 MG TABLET PO SCH (09:19)
[2017-03-09] MEDS: FUROSEMIDE 20 MG TABLET PO SCH ×2 (09:19→15:29)
[2017-03-09] MEDS: LIDOCAINE 5% PATCH TOP SCH (09:20)
[2017-03-09 09:47] VITALS: BP 129/70; PULSE 91; RESP 14; TEMP 97.6
--- NOTE | 2017-03-09 10:10 | IRU Progress Note ---
- Subjective/Serverity of Illness Mr. Tripathi is evaluated today. He tolerated the thoracentesis well. He denies any shortness of breath. He states that the pain from the rib fractures is well controlled at the present time. Appetite is fair. He is working with speech therapy for phonation. He denies any chest pain. He remains on Unasyn. Analysis of pleural fluid reveals a very high LDH as anticipated, consistent with his previous hemothorax/exudative effusion. From a therapy standpoint he is improved dramatically. He is modified independent for most activities. Awaiting medical decision as to dismissal. Exam Vital Signs: Temperature 97.6 F 03/09/17 09:45 Pulse Rate 91 03/09/17 09:45 Respiratory Rate 14 03/09/17 09:45 Blood Pressure 129/70 03/09/17 09:45 Pulse Oximetry 95 03/09/17 09:45 Oxygen Delivery Method Room Air Height: 1.68 m Weight: 86.6 kg Body Mass Index: 29.5 - Constitutional Present: no acute distress Comments: The patient is awake, alert and oriented and in no acute distress. Pupils are equal. The neck is supple. Chest: Clear to auscultation bilaterally. Cor: irregular rhythm with no gallop, click nor murmur Abd: soft with normo-active bowel sounds. There are no masses, no tenderness and no guarding. Extremities: No edema is noted. No cyanosis is present. Cognition appears to be OK today. Working with speech re: phonation and his voice is indeed "stronger." Results IRU - Labs Labs: Gram stain on pleural fluid shows white cells only and no bacteria. Findings are consistent with an exudative effusion, consistent with his previously known hemothorax. Sepsis Assessment - Evaluation Sepsis screening result: No Definite Risk IRU A/P (1) Hemothorax on right Current visit: Yes Status: Acute Tolerated thoracentesis well yesterday. Remains on Unasyn. White count improved to 11,000. Awaiting medical clearance for dismissal. (2) Ribs, multiple fractures Qualifiers: Encounter type: subsequent encounter Fracture type: closed Laterality: right Fracture healing: with routine healing Qualified Code(s): S22.41XD - Multiple fractures of ribs, right side, subsequent encounter for fracture with routine healing Current visit: Yes Status: Acute Pain appears to be fairly well controlled at present. (3) Dysphagia, oropharyngeal phase Current visit: Yes Status: Chronic (4) Parkinsons disease Current visit: Yes Status: Chronic (5) Pneumothorax on right Current visit: Yes Status: Resolved (6) Leukocytosis Qualifiers: Leukocytosis type: other Qualified Code(s): D72.828 - Other elevated white blood cell count Current visit: Yes Status: Acute His white count is improved. (7) Depression Qualifiers: Depression Type: reactive depression Qualified Code(s): F32.9 - Major depressive disorder, single episode, unspecified Current visit: Yes Status: Acute Patient was started on citalopram and seems to be tolerating it well. DVT Prophylaxis: Coumadin Resuscitation Status: Full Code - Course Hospital Course: Kyler Hale MD: 03/01/17 10:31 He is settling into the acute rehabilitation unit well. He is cooperating with therapy. White count is a bit up and there is some purulence from the chest tube site without surrounding erythema. There is report of dysphagia and coughing with swallowing. Speech therapy will be consulted. 03/02/17 10:15 Patient is making progress. His Parkinson's disease is a limitation on his progress however. He is walking with contact-guard assistance and during lower extremity dressing with contact-guard assistance. His multiple major trauma from his multiple right rib fractures is limiting his progress as well. We anticipate continued improvement over the next several days with a planned dismissal on March 07. Stool softener is discontinued today. Wound looks about the same and his white count remains elevated at 12,000. 03/04/17 10:48 Patient is making slow progress. Still requires standby assistance. Leukocytosis and thrombocytosis remain. Some progression in the pleural effusion on chest radiograph. 03/07/17 11:49 Does have evidence of reactive depression. We will start citalopram. Medically he does have an increasing effusion on the right. Pulmonology has been consulted. Atrial fibrillation with anticoagulation noted. 03/08/17 09:56 Was seen by pulmonology yesterday. Thoracentesis planned for today. White count was down to 9700 yesterday but is back up slightly today. Remains on Unasyn. 03/09/17 10:12 Clinically he is symmetrically improved. Phonation is improved. He is safe to swallow. Tolerated thoracentesis well. Findings are consistent with an exudative effusion. Awaiting medical clearance for dismissal. - Interventions to Obtain Goals PT Treatment Plan: Balance/Proprioception, Functional Activities, Gait Training , Patient/Family Education, Therapeutic Exercise OT Treatment Plan: ADL (Basic Care), Balance Training, IADL, Pt./Family Education, Ther. Exercise for ADL
--- NOTE | 2017-03-09 10:49 | Pulmonology Progress Note ---
Subjective Principal diagnosis: Hemothorax Interval history: Pt sitting up in the chair. States he is doing ok. No SOB noted and has been up with PT this am already. Notices slight cough but no sputum this am. Exam Vital signs: Temperature 97.6 F 03/09/17 09:45 Pulse Rate 91 03/09/17 09:45 Respiratory Rate 14 03/09/17 09:45 Blood Pressure 129/70 03/09/17 09:45 Pulse Oximetry 95 03/09/17 09:45 Oxygen Delivery Method Room Air - Constitutional no acute distress, well nourished, well developed, cooperative - Routine HEENT Exam Head: Present: normocephalic, atraumatic Eye: Present: PERRL ENT: Present: mucous membranes moist - Routine Neck Exam Present: supple, full ROM, trachea midline - Routine Chest/Breast/Axilla Exam Chest wall: Present: tenderness - Routine Respiratory Exam Present: decreased breath sounds. Absent: accessory muscle use, patient mechanically ventilated Comments: diminished RLL - Routine Cardiovascular Exam Present: S1, S2, no murmur, irregular rhythm - Routine Abdominal Exam Present: soft, normoactive bowel sounds - Routine Extremities Exam Present: no edema, full ROM. Absent: cyanosis, clubbing - Routine Skin Exam Present: intact, dry. Absent: cyanosis, erythema - Routine Neurological Exam Present: alert, oriented X3, CN II-XII intact - Routine Psychiatric Exam Present: normal affect, normal thought process Progress Note-A&P (1) Hemothorax on right Status: Acute Assessment and plan: S/P CT at [place] and now s/p R side thoracentesis 03/08 with 400ml out. Lab noted with LDH 12 thousand, fluid exudative. No new Lab today. CXR still with volume loss and atelectasis on R. No c/o SOB at this time. Will need to follow up in clinic in 2 weeks with a CXR. Current Visit: Yes (2) Atelectasis of right lung Status: Acute Assessment and plan: Pt with IS and acapella in room, encouraged the use of his IS frequently, has prn albuterol if needed. Current Visit: Yes (3) Acute blood loss anemia Status: Resolved Current Visit: Yes (4) Parkinsons disease Status: Chronic Assessment and plan: Medications per primary, appears stable. Current Visit: Yes (5) Atrial fibrillation, chronic Status: Chronic Assessment and plan: Pt with Hx of atrial fibrillation, coumadin on hold for thoracentesis yesterday. Likely to restart coumadin prior to dismissal Current Visit: Yes - Time Spent With Patient Total time spent is greater than 50% in coordination of care (as documented) at patient's floor/unit and/or counseling patient: less than 15 minutes Sepsis Assessment - Evaluation Sepsis screening result: No Definite Risk
[2017-03-09 13:24] VITALS: O2SAT 94
--- NOTE | 2017-03-09 13:52 | Pharmacy Consult ---
Pharmacy Consult-Warfarin - Laboratory Information 03/01/17 03/02/17 03/03/17 05:05 04:42 04:35 INR 1.74 H 2.49 H 2.76 H 03/04/17 03/05/17 03/06/17 04:38 04:31 04:29 INR 3.07 H 3.05 H 2.90 H 03/07/17 03/07/17 03/08/17 08:23 18:03 08:35 INR 2.29 H 2.09 H 1.62 H 03/09/17 04:40 INR 1.56 H - Consult Information COUMADIN CONSULT (Recurring): Today's INR = 1.56. Will continue to hold warfarin per provider request. Will continue to monitor & make adjustments accordingly. Thank you.
--- NOTE | 2017-03-09 14:18 | Discharge Instructions ---
Discharge Plan - Med Rec/Dispo Referrals/Follow Up: José Miguel Dueñas MD [Family Provider] - 1 Week (Dr. Keena Dueñas on 03/24/17 at 1:00 pm for Hosp. follow-up. [address] [place] [address]) Pankaj Marrero MD [Physician] - 2 Weeks (Call clinic for appointment time. Need to have chest x-ray prior to visit.) Additional Instructions: Encourage incentive spirometry for pulmonary toileting. Follow up with Dr. Marrero in 2 weeks. Call to schedule appointment. Need to have chest x-ray prior to appointment. Follow up with Dr. Dueñas next week to have labs rechecked - INR, CBC and BMP. Return to hospital or call your doctor if fever >100.5, increased difficulty breathing, chest pain, change or worsening of symptoms. Restart your Coumadin as directed in AM. on 03/10/17. Recommend monitor weight daily and keeping a log to discuss with Dr. Dueñas. Prescriptions: New Furosemide [Lasix] 20 mg PO 0900,1400 #60 tablet Amox/Clav [Augmentin] 875 mg PO Q12H #10 tablet Continue Multivitamins (Multiple Vitamin) 1 tab PO DAILY #0 Turmeric/Turmeric Root Extract [Turmeric 450-50 mg Capsule] 500 mg PO DAILY # 0 Warfarin Sodium [Coumadin] 5 mg PO SUTUWETHFRSA Milk of Magnesia [Mom] 30 ml PO DAILY Docusate Sodium [Colace] 1 cap PO BID Carbidopa/Levodopa [Carbidopa-Levodopa 25-100 Tab] 1 tab PO TID Warfarin Sodium 6 mg PO MO@1700 Atenolol 12.5 mg PO DAILY #0 Ubidecarenone [Co Q-10] 100 mg PO DAILY #0 Ezetimibe [Zetia] 10 mg PO DAILY #0 Simethicone [Mylicon] 80 mg PO Q4HR PRN PRN Reason: Gas/Bloating Acetaminophen [Acetaminophen Extra Strength] 500 mg PO Q4WA CALCIUM CARBONATE Chewable [Tums] 1,000 mg PO DAILY Discontinued Ibuprofen [Motrin] 1 tab PO Q8HR PRN PRN Reason: Pain Enoxaparin [Lovenox] 30 mg SUB-Q Q12HR PEG 3350 17gm PACKET [Miralax] 17 gm PO DAILY No Action Lidocaine 5% Patch [Lidoderm] 2 patch TRANSDERMA DAILY Oxycodone *Ir* [Roxicodone *Ir*] 5 mg PO Q4HPRN PRN PRN Reason: Breakthrough Pain - Disposition 01 Discharged Home, Self-Care
--- NOTE | 2017-03-09 14:32 | Progress Note ---
Subjective: Chaz is seen today in follow up for his recent hemothorax. He is seen while resting in bed with family at the bedside. He reports that he is feeling better and denies any complaints including no pain, chest pain, shortness of breath, abdominal pain, nausea, vomiting or dysuria. He underwent successful thoracentesis on 03/[address] Gupta and is now ready to go home. His vitals signs are stable and breathing improved. His appetite is good and bowels are moving. He remains on Unasyn with improvement in his leukocytosis. Blood cultures remain negative after 4 days. [place] 1.5 [place] [address]. Patient was seen and evaluated by Dr. Marrero's [employer] and cleared for discharge. Discussed with him and his family recommendations including continuing to use his incentive spirometer, restarting his usual dose of Coumadin, following up with Dr. Dueñas next week for recheck of labs and follow up with Dr. Marrero in 2 weeks. Objective Vital signs: Temperature 97.6 F 03/09/17 09:45 Pulse Rate 91 03/09/17 09:45 Respiratory Rate 14 03/09/17 13:00 Blood Pressure 129/70 03/09/17 09:45 Pulse Oximetry 94 03/09/17 13:00 Oxygen Delivery Method Room Air Body Mass Index: 29.5 - Constitutional Present: no acute distress, well nourished, well developed, cooperative - Routine HEENT Exam Head: Present: normocephalic, atraumatic Eye: Present: PERRL. Absent: conjunctival icterus ENT: Present: mucous membranes moist - Routine Respiratory Exam Present: CTA bilaterally. Absent: stridor, wheezes, crackles - Routine Cardiovascular Exam Present: RRR, S1, S2 - Routine Abdominal Exam Present: soft, normoactive bowel sounds, non distended, non tender - Routine Extremities Exam Present: edema (2+ bilaterally), full ROM, pulses intact Comments: JANNET hose in place. - Routine Back/Spine/Pelvis Exam Back/Spine: Present: full ROM - Routine Musculoskeletal Exam Musculoskeletal: Present: no clubbing or cyanosis, moving extremities well - Routine Skin Exam Present: intact, dry, warm Comments: afebrile - Routine Neurological Exam Present: alert, oriented X3, moving all extremities, normal speech - Routine Lymphatic Exam Lymphatic: Absent: lymphedema - Routine Psychiatric Exam Present: normal affect, cooperative Results - Labs CBC & Chem 7: 03/07/17 16:52 03/07/17 04:10 Microbiology Results: Microbiology 03/08/17 13:17 Pleural Fluid Gram Stain - Final 03/08/17 13:17 Pleural Fluid Body Fluid Culture - Preliminary Early growth 03/05/17 10:49 Peripheral/Iv Start Blood Culture - Preliminary No Growth After 4 Days 03/05/17 10:49 Peripheral/Iv Start Blood Culture - Preliminary No Growth After 4 Days 03/01/17 16:06 Sputum, Expectorated Gram Stain - Final 03/01/17 16:06 Sputum, Expectorated Sputum Culture - Final Assessment and Plan (1) Hemothorax on right Current visit: Yes Status: Acute Assessment and Plan: Impression Status post 8th through 12th right sided rib fractures and hemothorax secondary to fall Pleural effusion Leukocytosis Lower extremity edema Thrombocytosis Anemia Hypertension Obstructive sleep apnea A. fib-chronic Plan Patient to be discharged home today. Will restart his Coumadin at his usual dose tomorrow, 03/10/17. Recommended follow up with Dr. Dueñas next week to recheck INR, CBC and BMP. Will change Unasyn to Augmentin 875mg BID to be completed by 03/15 for pulmonary coverage. Patient instructed to follow up with Dr. Marrero in clinic in 2 weeks and to call for appointment. Needs to obtain CXR prior to appointment. Continued to encourage use of incentive spirometer for pulmonary toileting. Discussed signs and symptoms of worsening condition and recommend patient return to hospital or call PCP if fever >100.5, difficulty breathing, chest pain , change or worsening of condition. Will continue home medications and encouraged patient to keep log of daily weights to review with Dr. Dueñas. It was a pleasure assisting in the care of Mr. Tripathi. Please call the hospitalist service if any questions or concerns. - Time spent with patient 25 - 35 minutes Sepsis Assessment - Evaluation Sepsis screening result: No Definite Risk Hospital Course Summary Disclaimer: The visit summary below is not to be considered part of the above Progress Note. Hospital Course: 03/01/17 - Hospital consult Status post chest tube for right-sided hemothorax, right 8th through 12th rib fractures. * Monitor sats and breathing closely. * Encourage incentive spirometry, albuterol treatments if needed. Cough, leukocytosis. * SIRS 2/4 = tachycardia; WBC >12,000 * qSOFA = 0/3 * CXR shows atelectasis/pleural effusion right base and small apical pneumothorax- will follow * Consult speech therapy, he is at risk for aspiration with underlying Parkinson 's and acute debility Atrial fibrillation, on Coumadin * Consult pharmacy to manage Coumadin dose * INR today is 1.7, will start Lovenox daily until INR is therapeutic * Goal INR is 2.0-3.0 Hypertension * monitor BP - had hypotension in acute setting, which has resolved * Continue atenolol. ABLA * Hemoglobin 10.8 on admit, follow periodically Thrombocytosis * Platelet level and increased from [place]. * Suspect reactive. Will monitor. 03/02/17 CPAP resumed (OK per [place] [facility]uma team) Lovenox discontinued as INR is therapeutic. Continue coumadin for atrial fibrillation CXR shows right pleural effusion and small apical pneumothorax - repeat CXR later this week. WBC averaging 12,000. No indication for antibiotics at this point given absence of ongoing fever and minimal leukocytosis. Sputum culture is pending. Continue atenolol for hypertension. 03/03/17 Increasing lower extremity edema-will have him elevate his legs as much as possible and order JANNET hose. Will check daily weights. Wound care has been consulted by Dr. Hale regarding the chest tube wound. Cough, leukocytosis. * Repeat chest x-ray tomorrow to follow pleural effusion and monitor for development of empyema * CBC tomorrow. Hypertension * BP's running higher than previous. Last few pressures have been 140's/80's. He continues on his home dose of atenolol 12.5 mg daily. Continue to monitor. . 03/04/17 13:33 Lower extremity edema - * appears to be worsening. Have asked nursing staff to place JANNET hose on lower extremities as previously ordered. Have also asked nursing staff to obtain daily weights as previously ordered. Will give patient a one-time dose of Lasix 40 milligrams 1 now. Will then start 20 twice a day tomorrow. Cough, leukocytosis. * Chest x-ray obtained today does show an increase in pleural effusion on the right. Again, will increase aggressive diuresing as indicated above. Status post chest tube for right-sided hemothorax, right 8th through 12th rib fractures. * Wound care has been consulted by Dr. Geoffrey regarding the chest tube wound. Hypertension * BP's running normal. Continue on current regimen. Monitor for hypotension. Given addition of Lasix BRIANNE - continue home BiPAP Anemia * Hemoglobin remains stable continues at 10.4 Thrombocytosis * Suspect reactive. Will monitor. Plan- 03/05/17 Pleural Effusion- * Will hold Coumadin given INR is elevated at 3.05. Suspect patient may require thoracentesis tap for treatment of pleural effusion. This will likely need to be done on Wednesday 03/07 when INR has decreased. Overall, he appears to be asymptomatic denies feeling dyspnea. Lower extremity edema - * Continue with JANNET hose to bilateral lower extremity for compression. Continue with Lasix 20 milligrams twice a day Leukocytosis. * Given continued psychosis, accompanied with chest x-ray. Will obtain blood cultures and sputum culture. Will start Unasyn 3 gm IV every 6 hours for antimicrobial coverage. Status post chest tube for right-sided hemothorax, right 8th through 12th rib fractures. * Wound with dressing intact. No drainage noted. Significant ecchymosis to entire right side of chest wall. Continue to utilize oral pain medications as well as topical Lidoderm patch. Thrombocytosis * Suspect acute reactive. Will monitor. Anemia * Hemoglobin remains stable continues at 10.8- continue to monitor Hypertension * BP's running normal. Continue on current regimen. Monitor for hypotension. Given addition of Lasix BRIANNE * continue home BiPAP Case discussed orders and plan of care with attending, Dr Krause 03/06/17 09:15 - [place]. Pleural Effusion- * Continue to hold Coumadin; INR remains elevated at 2.90, trending down. Pharmacy to continue to manage and will recheck in AM. Anticipate thoracentesis for treatment of pleural effusion tomorrow, Wednesday 03/07, when INR has decreased. Overall, he remains asymptomatic and denies feeling dyspnea. Lower extremity edema - * Continue with JANNET hose to bilateral lower extremity for compression. Continue with Lasix 20 milligrams twice a day. Monitor weight daily. Leukocytosis. * WBC trending down at 12.7 (WBC 14.8 on 03/04). Continue to monitor trends. Will recheck CBC in AM to monitor blood counts. Continue Unasyn 3 gm IV every 6 hours for antimicrobial coverage. Blood cultures pending. Sputum culture showed >10 squamous epithelial cells and no culture was preformed. Status post chest tube for right-sided hemothorax, right 8th through 12th rib fractures. * Wound with dressing intact. No drainage noted. Significant ecchymosis to entire right side of chest wall. Continue to utilize oral pain medications as well as topical Lidoderm patch. Monitor closely for constipation and utilize bowel motivation as indicated. Thrombocytosis. * Suspect acute reactive. Platelets trending down at 696 (Plt 731 on 03/04). Continue to monitor. Repeat CBC in AM to monitor blood counts. Anemia. * Hemoglobin remains stable continues at 10.6 - continue to monitor. Repeat CBC in AM to monitor blood counts. Hypertension. * BP's running normal. Continue on current regimen including atenolol. Monitor for hypotension. Continue to monitor electrolytes. Repeat BMP in AM. BRIANNE * continue home BiPAP. A-fib, chronic. * Chronic anticoagulation with Coumadin - continue to hold Coumadin in anticipation of thoracentesis on 03/07. INR trending down, currently 2.90. Pharmacy to continue to manage. Case discussed orders and plan of care with attending, Dr Krause 03/07/17 -progress note - day #7 IRU Continue to hold Coumadin. Will check INR now and await recommendation from Dr. Marrero. Continue with JANNET hose to bilateral lower extremity for compression. Elevate legs. Continue with Lasix 20 milligrams twice a day. Monitor weight daily. WBC trending down since starting antibiotics. Continue Unasyn 3 gm IV every 6 hours.
--- NOTE | 2017-03-09 14:37 | Discharge Instructions ---
Discharge Plan - Med Rec/Dispo Referrals/Follow Up: Pankaj Marrero MD [Physician] - 2 Weeks (Call clinic for appointment time. Need to have chest x-ray prior to visit.) José Miguel Dueñas MD [Family Provider] - 1 Week (Dr. Keena Dueñas on 03/24/17 at 1:00 pm for Hosp. follow-up. [address] [place] [address]) Additional Instructions: Encourage incentive spirometry for pulmonary toileting. Follow up with Dr. Marrero in 2 weeks. Call to schedule appointment. Need to have chest x-ray prior to appointment. Follow up with Dr. Dueñas next week to have labs rechecked - INR, CBC and BMP. Return to hospital or call your doctor if fever >100.5, increased difficulty breathing, chest pain, change or worsening of symptoms. Restart your Coumadin as directed in AM. on 03/10/17. Recommend monitor weight daily and keeping a log to discuss with Dr. Dueñas. Prescriptions: New Furosemide [Lasix] 20 mg PO 0900,1400 #60 tablet Amox/Clav [Augmentin] 875 mg PO Q12H #10 tablet Continue Multivitamins (Multiple Vitamin) 1 tab PO DAILY #0 Turmeric/Turmeric Root Extract [Turmeric 450-50 mg Capsule] 500 mg PO DAILY # 0 Warfarin Sodium [Coumadin] 5 mg PO SUTUWETHFRSA Milk of Magnesia [Mom] 30 ml PO DAILY Docusate Sodium [Colace] 1 cap PO BID Carbidopa/Levodopa [Carbidopa-Levodopa 25-100 Tab] 1 tab PO TID Warfarin Sodium 6 mg PO MO@1700 Atenolol 12.5 mg PO DAILY #0 Ubidecarenone [Co Q-10] 100 mg PO DAILY #0 Ezetimibe [Zetia] 10 mg PO DAILY #0 Simethicone [Mylicon] 80 mg PO Q4HR PRN PRN Reason: Gas/Bloating Acetaminophen [Acetaminophen Extra Strength] 500 mg PO Q4WA CALCIUM CARBONATE Chewable [Tums] 1,000 mg PO DAILY Discontinued Ibuprofen [Motrin] 1 tab PO Q8HR PRN PRN Reason: Pain Enoxaparin [Lovenox] 30 mg SUB-Q Q12HR PEG 3350 17gm PACKET [Miralax] 17 gm PO DAILY No Action Lidocaine 5% Patch [Lidoderm] 2 patch TRANSDERMA DAILY Oxycodone *Ir* [Roxicodone *Ir*] 5 mg PO Q4HPRN PRN PRN Reason: Breakthrough Pain Discharge Instructions/Outpatient Orders: Final Provider Discharge Instructions Location: Determined By Patient - Disposition 01 Discharged Home, Self-Care
--- NOTE | 2017-03-09 14:50 | Discharge Summary ---
Discharge Information Date of admission: 02/28/17 15:25 Anticipated date of discharge: 03/09/17 Attending Physician: Kyler Hale MD Primary care physician: José Miguel Dueñas MD Consults: 02/28/17 16:14 Physician Consult [CONS] Routine Consulting Provider: Kristy Farfan Reason For Exam: Medical management Ordering Provider has Notified Radiography Technician: No 03/01/17 10:12 Pharmacy Consult [CONS] Routine Pharmacy Consult: Coumadin/Warfarin 03/02/17 10:36 [facility] Consult [CONS] Routine Reason for consultation: spot on nose - not blanchable 03/07/17 08:00 Doctor [Physician Consult] [CONS] Routine Consulting Provider: Pankaj Marrero Reason For Exam: hemothorax Ordering Provider has Notified Radiography Technician: No - Discharge Diagnosis Discharge Diagnosis: 1. Multiple rib fractures, right side 2. Hemothorax 3. Pneumothorax 4. Atrial fibrillation 5. Acute blood loss anemia 6. Reactive depression 7. Parkinson's Disease with dysphagia and poor phonation - Laboratory Labs: 03/07/17 16:52 03/07/17 04:10 - Microbiology Microbiology 03/08/17 13:17 Pleural Fluid Gram Stain - Final 03/08/17 13:17 Pleural Fluid Body Fluid Culture - Preliminary Early growth 03/05/17 10:49 Peripheral/Iv Start Blood Culture - Preliminary No Growth After 4 Days 03/05/17 10:49 Peripheral/Iv Start Blood Culture - Preliminary No Growth After 4 Days 03/01/17 16:06 Sputum, Expectorated Gram Stain - Final 03/01/17 16:06 Sputum, Expectorated Sputum Culture - Final History of Present Illness HPI: 03/09/17 14:48 Mr. Tripathi was injured while he was trying to catch a rolling truck. He was apparently pinned between the door and the truck. This resulted in multiple rib fractures on the right side. He was able to drive himself home. Subsequently the pain got worse and ultimately he presented to the [facility] emergency department. He was noted to have a pneumothorax and a pleural effusion on the right side. This turned out to be a hemothorax. He was transferred to [place] where he was stabilized. At that location a chest tube was placed. Pneumothorax resolved. Pleural effusion remained. He does have underlying Parkinson's disease and, due to the severe pain from the multiple rib fractures was quite debilitated. He required an intensive individualized course of physical therapy and occupational therapy to manage these multiple medical problems and to allow him to return to functional independence. Medical problems identified included multiple rib fractures on the right, atrial fibrillation on warfarin, Parkinson's disease with dysphagia and reduced phonation, acute blood loss anemia and uncontrolled pain from the rib fractures. Hospital Course This is a general summary of the patient's hospital course. For more details refer to the complete medical record. After admission to the acute inpatient rehabilitation unit he was seen by physical therapy for transfers and ambulation. Ambulation improved from contact- guard assistance walking 225 feet up to modified independent status walking 429 feet with a walker. Transfers improved from standby assistance to modified independent transfers. He was also seen by occupational therapy with improvement with ADLs. His progress was impeded by the severe pain in the right ribs. Subsequently the pain did improve. We initially treated him with oxycodone but subsequently he did not require that. He was seen in consultation by the hospitalist service for his multiple medical problems. The right-sided pleural effusion worsened during this hospitalization. Dr. Gupta was consulted who performed thoracentesis, withdrawing 400 cc of old blood type fluid from the right chest cavity. This was consistent with an exudative effusion as anticipated. Patient tolerated the procedure well and there was no evidence of resulting pneumothorax. The patient had an increasing white count while on the rehabilitation unit. He was started on Unasyn. He will be sent home on Augmentin. At the time of dismissal his white count is improved. The warfarin dose was monitored and dosed by pharmacy. He will restart warfarin at the time of dismissal and we recommend a follow-up INR in about a week by his primary care physician. His INR is 1.56 on 03/09/2017. Warfarin had been held for several days because of the thoracentesis but was restarted at the time of dismissal. He did have what appeared to be reactive depression. He was started on citalopram for this. He was felt to be stable for dismissal on 03/09/2017 to the care of his . We recommend follow-up in one week by his personal physician. At the time of dismissal he is independent with eating, grooming and is modified independent with transfers and ambulation with a walker. Hospital course: 03/01/17 - Hospital consult Status post chest tube for right-sided hemothorax, right 8th through 12th rib fractures. * Monitor sats and breathing closely. * Encourage incentive spirometry, albuterol treatments if needed. Cough, leukocytosis. * SIRS 2/4 = tachycardia; WBC >12,000 * qSOFA = 0/3 * CXR shows atelectasis/pleural effusion right base and small apical pneumothorax- will follow * Consult speech therapy, he is at risk for aspiration with underlying Parkinson 's and acute debility Atrial fibrillation, on Coumadin * Consult pharmacy to manage Coumadin dose * INR today is 1.7, will start Lovenox daily until INR is therapeutic * Goal INR is 2.0-3.0 Hypertension * monitor BP - had hypotension in acute setting, which has resolved * Continue atenolol. ABLA * Hemoglobin 10.8 on admit, follow periodically Thrombocytosis * Platelet level and increased from [place]. * Suspect reactive. Will monitor. 03/02/17 CPAP resumed (OK per [place] [facility]uma team) Lovenox discontinued as INR is therapeutic. Continue coumadin for atrial fibrillation CXR shows right pleural effusion and small apical pneumothorax - repeat CXR later this week. WBC averaging 12,000. No indication for antibiotics at this point given absence of ongoing fever and minimal leukocytosis. Sputum culture is pending. Continue atenolol for hypertension. 03/03/17 Increasing lower extremity edema-will have him elevate his legs as much as possible and order JANNET hose. Will check daily weights. Wound care has been consulted by Dr. Hale regarding the chest tube wound. Cough, leukocytosis. * Repeat chest x-ray tomorrow to follow pleural effusion and monitor for development of empyema * CBC tomorrow. Hypertension * BP's running higher than previous. Last few pressures have been 140's/80's. He continues on his home dose of atenolol 12.5 mg daily. Continue to monitor. . 03/04/17 13:33 Lower extremity edema - * appears to be worsening. Have asked nursing staff to place JANNET hose on lower extremities as previously ordered. Have also asked nursing staff to obtain daily weights as previously ordered. Will give patient a one-time dose of Lasix 40 milligrams 1 now. Will then start 20 twice a day tomorrow. Cough, leukocytosis. * Chest x-ray obtained today does show an increase in pleural effusion on the right. Again, will increase aggressive diuresing as indicated above. Status post chest tube for right-sided hemothorax, right 8th through 12th rib fractures. * Wound care has been consulted by Dr. Hale regarding the chest tube wound. Hypertension * BP's running normal. Continue on current regimen. Monitor for hypotension. Given addition of Lasix BRIANNE - continue home BiPAP Anemia * Hemoglobin remains stable continues at 10.4 Thrombocytosis * Suspect reactive. Will monitor. Plan- 03/05/17 Pleural Effusion- * Will hold Coumadin given INR is elevated at 3.05. Suspect patient may require thoracentesis tap for treatment of pleural effusion. This will likely need to be done on Wednesday 03/07 when INR has decreased. Overall, he appears to be asymptomatic denies feeling dyspnea. Lower extremity edema - * Continue with JANNET hose to bilateral lower extremity for compression. Continue with Lasix 20 milligrams twice a day Leukocytosis. * Given continued psychosis, accompanied with chest x-ray. Will obtain blood cultures and sputum culture. Will start Unasyn 3 gm IV every 6 hours for antimicrobial coverage. Status post chest tube for right-sided hemothorax, right 8th through 12th rib fractures. * Wound with dressing intact. No drainage noted. Significant ecchymosis to entire right side of chest wall. Continue to utilize oral pain medications as well as topical Lidoderm patch. Thrombocytosis * Suspect acute reactive. Will monitor. Anemia * Hemoglobin remains stable continues at 10.8- continue to monitor Hypertension * BP's running normal. Continue on current regimen. Monitor for hypotension. Given addition of Lasix BRIANNE * continue home BiPAP Case discussed orders and plan of care with attending, Dr Krause 03/06/17 09:15 - [place]. Pleural Effusion- * Continue to hold Coumadin; INR remains elevated at 2.90, trending down. Pharmacy to continue to manage and will recheck in AM. Anticipate thoracentesis for treatment of pleural effusion tomorrow, Wednesday 03/07, when INR has decreased. Overall, he remains asymptomatic and denies feeling dyspnea. Lower extremity edema - * Continue with JANNET hose to bilateral lower extremity for compression. Continue with Lasix 20 milligrams twice a day. Monitor weight daily. Leukocytosis. * WBC trending down at 12.7 (WBC 14.8 on 8/4). Continue to monitor trends. Will recheck CBC in AM to monitor blood counts. Continue Unasyn 3 gm IV every 6 hours for antimicrobial coverage. Blood cultures pending. Sputum culture showed >10 squamous epithelial cells and no culture was preformed. Status post chest tube for right-sided hemothorax, right 8th through 12th rib fractures. * Wound with dressing intact. No drainage noted. Significant ecchymosis to entire right side of chest wall. Continue to utilize oral pain medications as well as topical Lidoderm patch. Monitor closely for constipation and utilize bowel motivation as indicated. Thrombocytosis. * Suspect acute reactive. Platelets trending down at 696 (Plt 731 on 03/04). Continue to monitor. Repeat CBC in AM to monitor blood counts. Anemia. * Hemoglobin remains stable continues at 10.6 - continue to monitor. Repeat CBC in AM to monitor blood counts. Hypertension. * BP's running normal. Continue on current regimen including atenolol. Monitor for hypotension. Continue to monitor electrolytes. Repeat BMP in AM. BRIANNE * continue home BiPAP. A-fib, chronic. * Chronic anticoagulation with Coumadin - continue to hold Coumadin in anticipation of thoracentesis on 03/07. INR trending down, currently 2.90. Pharmacy to continue to manage. Case discussed orders and plan of care with attending, Dr Krause 03/07/17 -progress note - day #7 IRU Continue to hold Coumadin. Will check INR now and await recommendation from Dr. Marrero. Continue with JANNET hose to bilateral lower extremity for compression. Elevate legs. Continue with Lasix 20 milligrams twice a day. Monitor weight daily. WBC trending down since starting antibiotics. Continue Unasyn 3 gm IV every 6 hours. Discharge Plan - Med Rec/Dispo Referrals/Follow Up: Pankaj Marrero MD [Physician] - 2 Weeks (Call clinic for appointment time. Need to have chest x-ray prior to visit.) José Miguel Dueñas MD [Family Provider] - 1 Week (Dr. Keena Dueñas on 03/24/17 at 1:00 pm for Hosp. follow-up. [address] [place] [address]) Additional Instructions: Encourage incentive spirometry for pulmonary toileting. Follow up with Dr. Marrero in 2 weeks. Call to schedule appointment. Need to have chest x-ray prior to appointment. Follow up with Dr. Dueñas next week to have labs rechecked - INR, CBC and BMP. Return to hospital or call your doctor if fever >100.5, increased difficulty breathing, chest pain, change or worsening of symptoms. Restart your Coumadin as directed in AM. on 03/10/17. Recommend monitor weight daily and keeping a log to discuss with Dr. Dueñas. Prescriptions: New Furosemide [Lasix] 20 mg PO 0900,1400 #60 tablet Amox/Clav [Augmentin] 875 mg PO Q12H #10 tablet Continue Multivitamins (Multiple Vitamin) 1 tab PO DAILY #0 Turmeric/Turmeric Root Extract [Turmeric 450-50 mg Capsule] 500 mg PO DAILY # 0 Warfarin Sodium [Coumadin] 5 mg PO SUTUWETHFRSA Milk of Magnesia [Mom] 30 ml PO DAILY Docusate Sodium [Colace] 1 cap PO BID Carbidopa/Levodopa [Carbidopa-Levodopa 25-100 Tab] 1 tab PO TID Warfarin Sodium 6 mg PO MO@1700 Atenolol 12.5 mg PO DAILY #0 Ubidecarenone [Co Q-10] 100 mg PO DAILY #0 Ezetimibe [Zetia] 10 mg PO DAILY #0 Simethicone [Mylicon] 80 mg PO Q4HR PRN PRN Reason: Gas/Bloating Acetaminophen [Acetaminophen Extra Strength] 500 mg PO Q4WA CALCIUM CARBONATE Chewable [Tums] 1,000 mg PO DAILY Discontinued Ibuprofen [Motrin] 1 tab PO Q8HR PRN PRN Reason: Pain Enoxaparin [Lovenox] 30 mg SUB-Q Q12HR PEG 3350 17gm PACKET [Miralax] 17 gm PO DAILY No Action Lidocaine 5% Patch [Lidoderm] 2 patch TRANSDERMA DAILY Oxycodone *Ir* [Roxicodone *Ir*] 5 mg PO Q4HPRN PRN PRN Reason: Breakthrough Pain Discharge Instructions/Outpatient Orders: Final Provider Discharge Instructions Location: Determined By Patient - Disposition 01 Discharged Home, Self-Care
== END 2017-03-09 15:30 | disposition home or self-care (01) | DRG 560 ==
PROVIDERS: ADMIT Internal Medicine; ATTEND Internal Medicine

== ENCOUNTER 2017-03-11 15:43 | Inpatient (IN) ==
--- NOTE | 2017-03-11 16:29 | Emergency Department Report ---
SOB HPI - General Chief Complaint: Shortness of Breath/Dyspnea Stated Complaint: soa Time Seen by Provider: 03/11/17 15:50 - History of Present Illness 81-year-old gentleman presents with dyspnea. Patient was seen approximately 3 weeks ago with hemothorax after falling. He was on Coumadin at that time, chest tube was placed and patient was transferred to [place]. 3 days ago a needle thoracotomy was performed to try and drain more blood out of the cavity. However the blood was too thick, could not be drained with a needle, and patient was restarted on his Coumadin. Today he has noticed increased difficulty breathing and has difficulty speaking today because he cannot drawn enough air. He also has pressure behind his nose and has had some confusion today. No fever or chills, no new trauma. INR has not been checked in the last several days. - Related Data Home Medications Medication Instructions Recorded Confirmed Atenolol 12.5 mg PO DAILY #0 03/15/12 03/11/17 Ezetimibe [Zetia] 10 mg PO DAILY #0 03/15/12 03/11/17 Ubidecarenone [Co Q-10] 100 mg PO DAILY #0 03/15/12 03/11/17 Turmeric/Turmeric Root Extract 500 mg PO DAILY #0 02/19/16 03/11/17 [Turmeric 450-50 mg Capsule] Warfarin Sodium [Coumadin] 5 mg PO 4XW 02/16/17 03/11/17 Acetaminophen [Acetaminophen Extra 500 mg PO Q4WA 02/28/17 03/11/17 Strength] Carbidopa/Levodopa 1 tab PO TID 02/28/17 03/11/17 [Carbidopa-Levodopa 25-100 Tab] Warfarin Sodium 6 mg PO MOWEFR 02/28/17 03/11/17 Multivitamin [One Daily] 1 each PO DAILY 03/11/17 03/11/17 Previous Rx's Medication Instructions Recorded Amox/Clav [Augmentin] 875 mg PO Q12H #10 tablet 03/09/17 Furosemide [Lasix] 20 mg PO 0900,1400 #60 tablet 03/09/17 Allergies Allergy/AdvReac Type Severity Reaction Status Date / Time No Known Drug Allergies Allergy Unknown Verified 03/11/17 16:04 Review of Systems All systems: reviewed and negative except as stated PFSH Patient Stated Medical History Parkinson's Disease Yes Cataracts Yes Cardiac Arrhythmia Yes: Atrial Fib Hypertension Yes Asthma Yes Constipation pt. reports sometimes Hx Benign Prostatic Yes Hyperplasia Hx Incontinence No Other Hematologic Yes: COUMADIN Other Musculoskeletal Yes: FX LEG, CLAVICLE, RIBS Now No Surgical History: 1. Prostate surgery for cancer. 2. Chest tube placement for hemothorax and pneumothorax 02/16/17. 3. Bilateral cataract extractions. 4. T& A. 5. Herniorraphies. 6. Appendectomy - Social History Smoking status: Never smoker second hand exposure: No Substance use type: does not use Alcohol intake frequency: does not drink Current residence: Apartment/Private Home Physical Exam - Normal Exams: Head:: Normocephalic without trauma Neck:: Full range of motion, without adenopathy, JVD, bruits or thyromegaly Cardiovascular:: Regular rate and rhythm, without murmur or gallop, Pulses 2+ all extremities, capillary refill, <2 seconds all extremities Abdomen:: Bowel sounds positive, soft, non-tender, non-distended, no hepatosplenomegaly, masses or bruits noted Neurological:: Patient is alert, and oriented, cranial nerves, motor/sensory/ cerebellar, exams w/o gross deficits, to observation Psychiatric:: Patient exhibits, appropriate attention, emotion and affect - Chest Chest inspection: Present: other (mild wheezing noted left greater than right. Diminished breath sounds on right) Course Course Narrative: Due to severe risk of bleed or further PE, full workup performed and I spent 35 min in critical care of pt. Both direct care and consult time considered. Vital Signs Temperature 98.0 F 03/11/17 15:45 Pulse Rate 93 03/11/17 15:45 Respiratory Rate 22 03/11/17 15:45 Blood Pressure 134/78 03/11/17 15:45 Pulse Oximetry 96 03/11/17 15:45 Temperature 98.0 F 03/11/17 15:45 Pulse Rate 88 03/11/17 17:35 Respiratory Rate 18 03/11/17 17:56 Blood Pressure 140/72 H 03/11/17 17:30 Pulse Oximetry 93 03/11/17 17:56 Shortness of Breath/Dyspnea - MDM Narrative Medical decision making narrative: See labs below. CT result shows noted rib fractures. However no increase in acutely of blood, in fact some decreased noted. INR appropriate for restart of Coumadin. Patient was given DuoNeb treatment which did improve breathing moderately. However he still continued to have shortness of breath. In consultation with Dr. Casas, recommendation was made to obtain CT PE to rule out the possibility of pulmonary embolus due to trauma and restarted the Coumadin. This seems very appropriate and was ordered. CT returned showing Right interlobar and proximal segmental artery PE with right sided heart strain. I discussed this with Hospitalist and we both agreed it was appropriate to admit pt to observation and follow INR. Lovenox 1 mg/kg sq bid ordered. Pt is accepting of this plan. - Medical Records Attestation: I reviewed the patient's medical records. - Lab Data Attestation: I reviewed the patient's lab results. Result diagrams: 03/11/17 16:56 03/11/17 16:56 Lab Results 03/11/17 03/11/17 03/11/17 Range/Units 16:56 16:56 16:56 WBC 11.3 H (4.5-11.0) T/MM3 RBC 3.81 L (4.50-5.90) M/MM3 Hgb 11.1 L (13.5-17.5) GM/DL Hct 35.0 L (41-53) % MCV 91.9 (80-100) UM3 MCH 29.1 (26-34) UUG MCHC 31.7 (31-37) GM/DL RDW Std Deviation 46.9 (36.9-50.2) FL Plt Count 805 H* (130-400) T/MM3 MPV 8.1 L (9.4-12.4) UM3 Immature Gran % (Auto) 0.3 (0.0-0.5) % Neut % (Auto) 69.5 H (33-66) % Lymph % (Auto) 19.2 L (23-45) % [place] % (Auto) 10.7 H (0-9.0) % Eos % (Auto) 0.0 (0-4) % Baso % (Auto) 0.3 (0-2) % Neut # 7.9 H (1.8-7.7) T/MM3 Lymph # 2.2 (1-4.8) T/MM3 [place] # 1.2 H (0-0.8) T/MM3 Eos # 0.0 (0-0.5) T/MM3 Baso # 0.0 (0-0.2) T/MM3 Abs Immat Gran (auto) 0.03 (0.00-0.03) T/MM3 INR 1.62 H (0.99-1.21) VBG pH (7.31-7.41) VBG pCO2 (40-52) MMHG VBG pO2 (40-52) MMHG VBG HCO3 (22-26) MEQ/L VBG Total CO2 MEQ/L VBG O2 Saturation % VBG Base Excess (-2.0-2.0) MMOL/L O2 Delivery Method Turbidity < 20 (0-20) Sodium 144 (134-144) MEQ/L Potassium 4.0 (3.6-5) MEQ/L Chloride 107 (98-107) MEQ/L Carbon Dioxide 28 (22-30) MEQ/L Anion Gap 9 (5-15) MEQ/L BUN 16.0 (9-20) MG/DL Creatinine 0.9 (0.8-1.5) MG/DL GFR Calculation 81 BUN/Creatinine Ratio 18 (6-26) RATIO Glucose 95 (75-110) MG/DL Calculated Osmolality 278 (261-280) MOSM/KG Calcium 8.6 (8.4-10.2) MG/DL Total Bilirubin 0.90 (0.20-1.30) MG/DL Icterus Index < 2 (0-7) AST 26 (17-59) U/L ALT 31 (21-72) U/L Alkaline Phosphatase 78 (38-126) U/L Troponin I < 0.012 (0-0.12) ng/ml B-Natriuretic Peptide 3420 H (0-175) pg/mL Total Protein 6.5 (6.3-8.2) G/DL Albumin 3.1 L (3.5-5.0) G/DL Globulin 3.4 (2.4-3.6) G/DL Albumin/Globulin Ratio 0.9 L (1.1-2.2) RATIO Specimen Hemolysis < 15 (0-25) // Range/Units 18:27 WBC (4.5-11.0) T/MM3 RBC (4.50-5.90) M/MM3 Hgb (13.5-17.5) GM/DL Hct (41-53) % MCV (80-100) UM3 MCH (26-34) UUG MCHC (31-37) GM/DL RDW Std Deviation (36.9-50.2) FL Plt Count (130-400) T/MM3 MPV (9.4-12.4) UM3 Immature Gran % (Auto) (0.0-0.5) % Neut % (Auto) (33-66) % Lymph % (Auto) (23-45) % [place] % (Auto) (0-9.0) % Eos % (Auto) (0-4) % Baso % (Auto) (0-2) % Neut # (1.8-7.7) T/MM3 Lymph # (1-4.8) T/MM3 [place] # (0-0.8) T/MM3 Eos # (0-0.5) T/MM3 Baso # (0-0.2) T/MM3 Abs Immat Gran (auto) (0.00-0.03) T/MM3 INR (0.99-1.21) VBG pH 7.460 H (7.31-7.41) VBG pCO2 41 (40-52) MMHG VBG pO2 23 L (40-52) MMHG VBG HCO3 29 H (22-26) MEQ/L VBG Total CO2 30.5 MEQ/L VBG O2 Saturation 45.0 % VBG Base Excess 4.9 H (-2.0-2.0) MMOL/L O2 Delivery Method Room air Turbidity (0-20) Sodium (134-144) MEQ/L Potassium (3.6-5) MEQ/L Chloride (98-107) MEQ/L Carbon Dioxide (22-30) MEQ/L Anion Gap (5-15) MEQ/L BUN (9-20) MG/DL Creatinine (0.8-1.5) MG/DL GFR Calculation BUN/Creatinine Ratio (6-26) RATIO Glucose (75-110) MG/DL Calculated Osmolality (261-280) MOSM/KG Calcium (8.4-10.2) MG/DL Total Bilirubin (0.20-1.30) MG/DL Icterus Index (0-7) AST (17-59) U/L ALT (21-72) U/L Alkaline Phosphatase (38-126) U/L Troponin I (0-0.12) ng/ml B-Natriuretic Peptide (0-175) pg/mL Total Protein (6.3-8.2) G/DL Albumin (3.5-5.0) G/DL Globulin (2.4-3.6) G/DL Albumin/Globulin Ratio (1.1-2.2) RATIO Specimen Hemolysis (0-25) - Radiology Data Attestation: I reviewed the patient's radiology results. Disposition Clinical Impression: Pulmonary embolism Disposition: To OBS [facility] Condition: Stable Prescriptions: No Action Turmeric/Turmeric Root Extract [Turmeric 450-50 mg Capsule] 500 mg PO DAILY # 0 Warfarin Sodium [Coumadin] 5 mg PO 4XW Carbidopa/Levodopa [Carbidopa-Levodopa 25-100 Tab] 1 tab PO TID Warfarin Sodium 6 mg PO MOWEFR Furosemide [Lasix] 20 mg PO 0900,1400 #60 tablet Multivitamin [One Daily] 1 each PO DAILY Atenolol 12.5 mg PO DAILY #0 Ubidecarenone [Co Q-10] 100 mg PO DAILY #0 Ezetimibe [Zetia] 10 mg PO DAILY #0 Acetaminophen [Acetaminophen Extra Strength] 500 mg PO Q4WA Amox/Clav [Augmentin] 875 mg PO Q12H #10 tablet Referrals: José Miguel Dueñas MD [Family Provider] - Time of Disposition: 20:21 - Seen By: physician
--- NOTE | 2017-03-11 17:01 | CT Scan Report ---
EXAM: CT head/brain wo con DATE: 03/11/2017 12:00 AM ENCOUNTER: Initial INDICATION: confusion COMPARISON: 08/02/2013 TECHNIQUE: 5 mm axial tomographic images were obtained of the head without contrast. The current CT scan was performed using radiation dose-reduction techniques. FINDINGS: Ill defined hypoattenuations within the periventricular deep white matter, a nonspecific finding, however most suggestive of chronic small vessel ischemic disease. The cuello-white matter junction is otherwise normal. No intra or extra-axial mass or hemorrhage is identified. There is no midline shift. Symmetric prominence of the ventricles and cerebral sulci consistent with age appropriate cerebral volume loss. The ventricles are otherwise normal in shape and morphology. The basilar cisterns are patent. No acute osseous or soft tissue abnormality. The visualized paranasal sinuses are normal. The visualized portions of the orbits and globes are normal. The mastoid air cells are clear. IMPRESSION: 1. No acute intracranial process identified by CT. 2. Age appropriate cerebral volume loss and mild chronic small vessel ischemic disease. .
--- NOTE | 2017-03-11 17:06 | CT Scan Report ---
Indication: dyspnea Procedure: CT chest wo con: Encounter: Initial Comparison: 02/16/2017 Technique: Contiguous axial CT images were obtained of the chest without intravenous contrast. Coronal and sagittal reformatted images were also obtained. Automated Exposure Control and Iterative Reconstruction dose reducing techniques were utilized. Findings: Lungs and airways: Right pulmonary relaxation atelectasis. Left basilar dependent/subsegmental atelectasis. No discrete pulmonary nodule or mass. No endoluminal lesion. Pleura: Improved but persistent moderate right pleural effusion with slight hyperdensity related to prior hemothorax. No pneumothorax. Heart and mediastinum: The visualized thyroid gland appears normal. No mediastinal or hilar lymphadenopathy. The visualized esophagus appears normal. Cardiomegaly without pericardial effusion. Coronary arterial and thoracic aortic atherosclerotic calcifications. Abdomen: Innumerable hepatic cysts. Abdominal aortic atherosclerotic calcifications. Osseous structures and soft tissues: No axillary lymphadenopathy. Redemonstration of multiple subacute nondisplaced fractures of the right eighth, ninth, 10th, 11th, and 12th ribs. Degenerative disc disease of the thoracic spine. Impression: 1. Improved but persistent resolving moderate right hemothorax related to subacute nondisplaced fractures of multiple right ribs. 2. No pneumothorax. .
[2017-03-11] MEDS ORDERED: ALBUTEROL/IPRATROPIUM 2.5mg-0.5mg/3ml NEB AEROSOL ONE (17:51)
[2017-03-11] MEDS ORDERED: IOHEXOL 350mg/ml 75ml INJECTION ONE (18:40)
[2017-03-11] MEDS ORDERED: SALINE FLUSH 10ml SYRINGE ONE (18:41)
[2017-03-11] MEDS ORDERED: NS 100 ML ONE (18:41)
[2017-03-11] MEDS: ENOXAPARIN 100 MG/ML INJECTION SQ SCH ×2 (20:25→22:30)
[2017-03-11] MEDS ORDERED: HYDROCODONE/APAP 5mg/325mg TABLET PO PRN (21:55)
[2017-03-11] MEDS ORDERED: WARFARIN 6 MG TABLET PO SCH (21:55)
[2017-03-11] MEDS ORDERED: ONDANSETRON 4 MG/2 ML INJECTION IVP PRN (21:55)
[2017-03-11] MEDS ORDERED: AMOX/CLAV 875 MG/125 MG TABLET PO SCH (21:55)
[2017-03-11] MEDS ORDERED: HYDROMORPHONE 2 MG/ML INJECTION IVP PRN (21:55)
--- NOTE | 2017-03-11 21:56 | History & Physical Report ---
History of Present Illness Date: 03/11/17 Chief complaint: doesn't feel well HPI: This is a 81 y/o male who fell on 02/16 and fractured ribs on the right. The patient had a hemopneumothorax and received a chest tube and was transferred to [place]. He was discharged back to [facility] on 02/28 into the ARU and completed his therapy and was discharged to home 2 days ago. Since discharge he has had increased weakness and shortness of breath. the patient has a history of atrial fibrillation and his Coumadin was held due to hemothorax. The decision was made to restart his Coumadin about 2 days ago. In the ED a plain CT of the chest described improved hemothorax. Because of the shortness of breath the patient had a CT angio of the chest that demonstrated a small PE on the right. The patient at this time will be admitted with further evaluation of his PE and to monitor for increased bleeding with increased anticoagulation. Review of Systems Review of systems: patient is not a complainer no headache, no recent change in vision, no sore throat, complains of congestion in his right nares which he feels is contributing to his shortness of breath no neck pain no chest pain interestingly enough (right rib fx). mild shortness of breath increased fatigue no heart palpations no abdomen pain, no nausea or vomiting, bowel movements every night, no blood some chronic non pitting edema to legs no focal neuro complaints a 12 point ROs otherwise negative except for outlined above. [facility] Medical History Updates: atrial fibrilation, right rib fracture, parkinson disease, depression, HTN, BPH, prostate cancer Surgical History: 1. Prostate surgery for cancer. 2. Chest tube placement for hemothorax and pneumothorax 02/16/17. 3. Bilateral cataract extractions. 4. T& A. 5. Herniorraphies. 6. Appendectomy - Social History Smoking status: Never smoker Substance use type: does not use Alcohol intake: never Current occupational status: employed Current occupational exposures/hazards: Yes Does patient use chewing tobacco?: No Current residence: Apartment/Private Home Medications Home Medications Medication Instructions Recorded Confirmed Type Atenolol 12.5 mg PO DAILY #0 03/15/12 03/11/17 History Ezetimibe [Zetia] 10 mg PO DAILY #0 03/15/12 03/11/17 History Ubidecarenone [Co Q-10] 100 mg PO DAILY #0 03/15/12 03/11/17 History Turmeric/Turmeric Root Extract 500 mg PO DAILY #0 02/19/16 03/11/17 History [Turmeric 450-50 mg Capsule] Warfarin Sodium [Coumadin] 5 mg PO 4XW 02/16/17 03/11/17 History Acetaminophen [Acetaminophen Extra 500 mg PO Q4WA 02/28/17 03/11/17 History Strength] Carbidopa/Levodopa 1 tab PO TID 02/28/17 03/11/17 History [Carbidopa-Levodopa 25-100 Tab] Warfarin Sodium 6 mg PO MOWEFR 02/28/17 03/11/17 History Multivitamin [One Daily] 1 each PO DAILY 03/11/17 03/11/17 History Allergies Allergy/AdvReac Type Severity Reaction Status Date / Time No Known Drug Allergies Allergy Unknown Verified 03/11/17 16:04 Exam Vital Signs: Temperature 98.0 F 03/11/17 21:49 Pulse Rate 109 H 03/11/17 21:49 Respiratory Rate 28 H 03/11/17 21:49 Blood Pressure 144/71 H 03/11/17 21:49 Pulse Oximetry 93 03/11/17 21:49 Oxygen Delivery Method Room Air Telemetry Rhythm: A-fib Height: 1.68 m Weight: 84.7 kg - Constitutional Present: mild distress, well nourished, average body habitus, cooperative - Routine HEENT Exam Head: Present: normocephalic, atraumatic Eye: Present: EOMI. Absent: conjunctival icterus, scleral injection ENT: Present: mucous membranes moist - Routine Neck Exam Present: supple, full ROM - Routine Respiratory Exam Absent: accessory muscle use, dyspnea Comments: patient with diminished breath sounds bilaterally, occasional rhonchi on the right. - Routine Cardiovascular Exam Present: irregularly irregular - Routine Abdominal Exam Present: soft, non distended, non tender - Routine Extremities Exam Present: non tender, full ROM. Absent: edema - Routine Back/Spine/Pelvis Exam Back/Spine: Present: full ROM - Routine Skin Exam Present: intact - Routine Neurological Exam Present: alert, oriented X3, CN II-XII intact. Absent: motor deficit - Routine Psychiatric Exam Present: normal affect Results - Labs CBC & Chem 7: 03/11/17 16:56 03/11/17 16:56 Labs: reviewed with mild leukocytosis, hg stable 11, thrombocytosis appreciated, inr mild elevated, vbg c/w mild compensated respirtoray alkalosis, chemistry reassuring - Imaging and Cardiology CT scan - chest Additional comments: two scans, initial described as mild righ hemothorax improving, second demonstrated right sided small PE Assessment and Plan (1) Pulmonary embolism Current visit: Yes Status: Acute 03/11/17 22:04 acute present on admission. not unexpected in this patient who has spent over a month in rehab/acute care. just restarted anticoagulation. Interestingly enough there is an incidence of increased thrombogenesis when starting coumadin. Thrombocytosis did not help the cause. Will cover with therapeutic lovenox while continuing coumadin. Of course the real issue is the hemothorax. Currently back on coumadin the effusion is improving. With therapeutic lovenox there is risk of bleeding. consider repeat CXR in am. repeat CBC already ordered. Difficult decision but risk is greater for progression of PE. Already evidence of right heart strain on CT (?related to lung disease) (2) Hemothorax on right Current visit: No Status: Acute 03/11/17 22:07 as noted above the patient has a resolving hemothorax from fx ribs. CT chest demonstrates improving. with anticoagulation increased increased risk of bleeding. monitor as described above. (3) Parkinsons disease Current visit: No Status: Chronic 03/11/17 22:08 continue sinemet. obviously spent sig time in ARU. if in hospital greater than a day would r/c restarting PT and OT (4) Atrial fibrillation, chronic Current visit: No Status: Chronic 03/11/17 22:09 chronic. continue coumadin and now lovenox. monitor on tele. rate controlled currently with b gustavo. obviously goal is rate and not rhythm control. (5) Thrombocytosis Current visit: Yes Status: Acute 03/11/17 22:10 elevated plt count. possible due to acute on chronic illness. repeat in am. and follow DVT Prophylaxis: SCD's, Lovenox, Coumadin GI Prophylaxis: Protonix Resuscitation Status: Full Code Sepsis Assessment - Evaluation Sepsis screening result: No Definite Risk Hospital Course Summary Disclaimer: The visit summary below is not to be considered part of the above Progress Note.
[2017-03-11 22:28] VITALS: BMI 29.1
[2017-03-11] MEDS: ACETAMINOPHEN 500 MG TABLET PO SCH (22:34)
[2017-03-12] MEDS: ACETAMINOPHEN 500 MG TABLET PO SCH ×6 (06:35→22:57)
[2017-03-12] MEDS: AMOX PO SCH ×2 (09:40→20:50)
[2017-03-12] MEDS: CLAV PO SCH ×2 (09:40→20:50)
[2017-03-12] MEDS: ENOXAPARIN 100 MG/ML INJECTION SQ SCH ×2 (09:40→20:51)
[2017-03-12] MEDS: ATENOLOL 25 MG TABLET PO SCH (09:41)
--- NOTE | 2017-03-12 11:08 | Progress Note ---
Subjective: H&P reviewed from overnight admission with Dr. Ospina. Feeling okay this morning, discussed reason for admission, need for close monitoring with anticoagulation. He was under the impression he would require a procedure to extract the thrombus from his lung. Reassured him that anticoagulation and close monitoring was the plan of care. Does not want another chest tube if possible. Denies fevers, chills, worsening dyspnea or chest pain. Still dyspneic with any exertion. Appetite okay. Objective Vital signs: Temperature 97.8 F 03/12/17 07:31 Pulse Rate 93 03/12/17 08:57 Respiratory Rate 20 03/12/17 07:31 Blood Pressure 136/72 03/12/17 07:31 Pulse Oximetry 93 03/12/17 07:31 Rhythm: Normal Sinus Rhythm Weight: 83.8 kg - Constitutional Present: no acute distress, well nourished, well developed, cooperative - Routine HEENT Exam Head: Present: normocephalic, atraumatic Eye: Present: EOMI, PERRL. Absent: conjunctival icterus ENT: Present: mucous membranes moist, oropharynx clear - Routine Respiratory Exam Present: CTA bilaterally. Absent: accessory muscle use, respiratory distress - Routine Cardiovascular Exam Present: RRR. Absent: murmur - Routine Abdominal Exam Present: soft. Absent: tenderness, non distended - Routine Extremities Exam Present: no edema, non tender, pulses intact - Routine Skin Exam Present: intact, dry. Absent: rash - Routine Neurological Exam Present: alert, oriented X3, vision grossly intact, hearing grossly intact - Routine Psychiatric Exam Present: normal affect Results - Labs CBC & Chem 7: 03/12/17 04:54 03/12/17 04:54 Assessment and Plan DVT Prophylaxis: Lovenox, Coumadin Resuscitation Status: Full Code Assessment and Plan: 03/12/17--[place] Impression: Pulmonary embolism, provoked with recent hospitalization and inactivity --> Started on therapeutic lovenox + warfarin S/P recent fall with rib fractures and subsequent hemothorax --> Chest tubes removed and discharged home on warfarin for afib --> Needs close monitoring with further anticoagulation as above as he is at risk for recurrent hemothorax Subtherapeutic INR on admission Anemia of chronic disease, Hb 10.2 today (decreased from 11.1) Thrombocytosis, presumably reactive, Plt 758K today (decreased) Parosyxmal afib, rate controlled and AC as above Parkinsons disease, controlled on sinemet but at high risk for further falls Plan/Recommendations: Close monitoring of warfarin and lovenox for PE given recent bleeding issues Repeat PA/Lat chest film tomorrow for surveillance Daily CBC and renal panel acutely Make inpatient as he will need to be monitored until INR therapeutic, lovenox stopped due to bleeding risk Monitor closely due to fall risk Continue home meds including sinemet, BB, home diuretic Discussed with patient, nursing staff. Sepsis Assessment - Evaluation Sepsis screening result: Sepsis Risk Hospital Course Summary Disclaimer: The visit summary below is not to be considered part of the above Progress Note. Hospital Course: 03/12/17--[place] Impression: Pulmonary embolism, provoked with recent hospitalization and inactivity --> Started on therapeutic lovenox + warfarin S/P recent fall with rib fractures and subsequent hemothorax --> Chest tubes removed and discharged home on warfarin for afib --> Needs close monitoring with further anticoagulation as above as he is at risk for recurrent hemothorax Subtherapeutic INR on admission Anemia of chronic disease, Hb 10.2 today (decreased from 11.1) Thrombocytosis, presumably reactive, Plt 758K today (decreased) Parosyxmal afib, rate controlled and AC as above Parkinsons disease, controlled on sinemet but at high risk for further falls Plan/Recommendations: Close monitoring of warfarin and lovenox for PE given recent bleeding issues Repeat PA/Lat chest film tomorrow for surveillance Daily CBC and renal panel acutely Make inpatient as he will need to be monitored until INR therapeutic, lovenox stopped due to bleeding risk Monitor closely due to fall risk Continue home meds including sinemet, BB, home diuretic
[2017-03-12] MEDS ORDERED: WARFARIN 5 MG TABLET PO SCH ×2 (12:00→20:33)
[2017-03-12] MEDS: FUROSEMIDE 20 MG TABLET PO SCH (14:19)
[2017-03-12] MEDS: SALINE FLUSH 10ml SYRINGE IVF PRN (14:19)
[2017-03-13] MEDS: ACETAMINOPHEN 500 MG TABLET PO SCH ×5 (06:23→21:05)
[2017-03-13] MEDS: ATENOLOL 25 MG TABLET PO SCH (09:24)
[2017-03-13] MEDS: AMOX PO SCH ×2 (09:24→21:05)
[2017-03-13] MEDS: CLAV PO SCH ×2 (09:24→21:05)
[2017-03-13] MEDS: EZETIMIBE 10 MG TABLET PO SCH (09:24)
[2017-03-13] MEDS: FUROSEMIDE 20 MG TABLET PO SCH ×2 (09:25→13:45)
[2017-03-13] MEDS: ENOXAPARIN 100 MG/ML INJECTION SQ SCH (09:26)
--- NOTE | 2017-03-13 10:52 | Progress Note ---
Objective Vital signs: Temperature 98.6 F 03/13/17 08:10 Pulse Rate 93 03/13/17 10:34 Respiratory Rate 20 03/13/17 08:10 Blood Pressure 136/71 03/13/17 08:10 Pulse Oximetry 95 03/13/17 08:10 Oxygen Delivery Method Room Air Weight: 83.2 kg - Constitutional Present: no acute distress, well nourished, well developed, cooperative - Routine HEENT Exam Head: Present: normocephalic, atraumatic Eye: Present: EOMI, PERRL. Absent: conjunctival icterus ENT: Present: mucous membranes moist, oropharynx clear - Routine Respiratory Exam Present: decreased breath sounds (on the right ). Absent: accessory muscle use , dyspnea - Routine Cardiovascular Exam Present: RRR. Absent: murmur, rubs - Routine Abdominal Exam Present: soft, non distended, non tender - Routine Extremities Exam Present: non tender. Absent: edema - Routine Skin Exam Present: dry. Absent: rash - Routine Neurological Exam Present: alert, oriented X3, CN II-XII intact - Routine Psychiatric Exam Present: normal affect, normal thought process Results - Labs CBC & Chem 7: 03/13/17 04:42 03/13/17 04:42 - Imaging and Cardiology Chest x-ray Status: pending (2 view ordered for surveillance ) Assessment and Plan DVT Prophylaxis: Coumadin Assessment and Plan: 03/13/17--[place] Impression: Pulmonary embolism, provoked with recent hospitalization and inactivity --> Started on therapeutic lovenox + warfarin, INR therapeutic at 2.4 today S/P recent fall with rib fractures and subsequent hemothorax --> Chest tubes removed and discharged home on warfarin for afib --> Needs close monitoring with full anticoagulation as above as he is at risk for recurrent hemothorax Subtherapeutic INR on admission Anemia of chronic disease, Hb 10.4 today, overall stable Thrombocytosis, presumably reactive, Plt 730K today (decreased) Parosyxmal afib, rate controlled and AC as above Parkinsons disease, controlled on sinemet but at high risk for further falls Plan/Recommendations: Close monitoring of warfarin and lovenox for PE given recent bleeding issues --> Stop lovenox this afternoon, decrease warfarin dosing to 4 mg daily as INR rising rapidly, recheck in AM Repeat PA/Lat chest film today for surveillance Daily CBC and renal panel acutely as well as INR Monitor closely due to fall risk Continue home meds including sinemet, BB, home diuretic dosing He requires ongoing inpatient care today as INR now therapeutic, will need to ensure it is stable tomorrow and he may be able to DC home tomorrow if no bleeding complications, stable INR and Hb levels. Will need close f/u with Dr. Gupta for pulm and with Dr. Dueñas (PCP) Discussed with patient, nursing staff. Sepsis Assessment - Evaluation Sepsis screening result: No Definite Risk Hospital Course Summary Disclaimer: The visit summary below is not to be considered part of the above Progress Note. Hospital Course: 03/12/17--[place] Impression: Pulmonary embolism, provoked with recent hospitalization and inactivity --> Started on therapeutic lovenox + warfarin S/P recent fall with rib fractures and subsequent hemothorax --> Chest tubes removed and discharged home on warfarin for afib --> Needs close monitoring with further anticoagulation as above as he is at risk for recurrent hemothorax Subtherapeutic INR on admission Anemia of chronic disease, Hb 10.2 today (decreased from 11.1) Thrombocytosis, presumably reactive, Plt 758K today (decreased) Parosyxmal afib, rate controlled and AC as above Parkinsons disease, controlled on sinemet but at high risk for further falls Plan/Recommendations: Close monitoring of warfarin and lovenox for PE given recent bleeding issues Repeat PA/Lat chest film tomorrow for surveillance Daily CBC and renal panel acutely Make inpatient as he will need to be monitored until INR therapeutic, lovenox stopped due to bleeding risk Monitor closely due to fall risk Continue home meds including sinemet, BB, home diuretic 03/13/17--[place] Impression: Pulmonary embolism, provoked with recent hospitalization and inactivity --> Started on therapeutic lovenox + warfarin, INR therapeutic at 2.4 today S/P recent fall with rib fractures and subsequent hemothorax --> Chest tubes removed and discharged home on warfarin for afib --> Needs close monitoring with full anticoagulation as above as he is at risk for recurrent hemothorax Subtherapeutic INR on admission Anemia of chronic disease, Hb 10.4 today, overall stable Thrombocytosis, presumably reactive, Plt 730K today (decreased) Parosyxmal afib, rate controlled and AC as above Parkinsons disease, controlled on sinemet but at high risk for further falls Plan/Recommendations: Close monitoring of warfarin and lovenox for PE given recent bleeding issues --> Stop lovenox this afternoon, decrease warfarin dosing to 4 mg daily as INR rising rapidly, recheck in AM Repeat PA/Lat chest film today for surveillance Daily CBC and renal panel acutely as well as INR Monitor closely due to fall risk Continue home meds including sinemet, BB, home diuretic dosing
[2017-03-13] MEDS ORDERED: WARFARIN 4 MG TABLET PO SCH (12:00)
[2017-03-13] MEDS ORDERED: FALL RISK - PHARMACY CONSULT MC PRN (21:03)
[2017-03-13] MEDS: SALINE FLUSH 10ml SYRINGE IVF PRN (21:06)
[2017-03-13 23:45] VITALS: TEMP 97.9
[2017-03-14] MEDS: ACETAMINOPHEN 500 MG TABLET PO SCH ×2 (05:43→09:57)
[2017-03-14] MEDS: SALINE FLUSH 10ml SYRINGE IVF PRN (05:44)
[2017-03-14 07:50] VITALS: BP 129/73; PULSE 85; RESP 18; O2SAT 94
[2017-03-14] MEDS: EZETIMIBE 10 MG TABLET PO SCH (08:23)
[2017-03-14] MEDS: ATENOLOL 25 MG TABLET PO SCH (08:24)
[2017-03-14] MEDS: FUROSEMIDE 20 MG TABLET PO SCH (08:24)
--- NOTE | 2017-03-14 09:16 | CT Scan Report ---
Indication: dyspnea PROCEDURE: CT angio pulm emboli: Encounter: Initial Comparison: Chest CT dated March 11, 2017 Technique: Axial CT pulmonary angiographic phase images were performed through the chest after the administration of intravenous contrast. Coronal and Sagittal MIP reconstructed images were created and reviewed. Automated Exposure Control and Iterative Reconstruction dose reducing techniques were utilized. Contrast: Omnipaque 350 73 mL Findings: Pulmonary arteries: Exam is diagnostic to the segmental pulmonary arterial level. No definite filling defects identified to confirm a pulmonary embolus. The primary report mentions subtle possible filling defects within a couple right lower segmental pulmonary arteries which are in the region of significant streak artifact and are not definite by any means. Other findings: Compressive atelectasis in the right middle and lower lobes due to a multilocular right pleural effusion. Small left effusion with left basilar atelectasis. No focal pneumonia or pneumothorax. No axillary or mediastinal adenopathy. No pleural rim enhancement to suggest an empyema. Heart is enlarged. No pericardial effusion. Coronary artery calcifications. The upper abdomen shows innumerable cystic lesions throughout the liver, some with peripheral calcification, incompletely evaluated on this exam. Multiple old rib deformities. Impression: No definite pulmonary embolus. Preliminary report mentions an area of possible PE in the right lower zone which is questionable due to significant streak artifact. Multiloculated right pleural effusion. There is a preliminary report by [employer]. .
[2017-03-14] MEDS: CLAV PO SCH (09:57)
[2017-03-14] MEDS: AMOX PO SCH (09:57)
--- NOTE | 2017-03-14 11:12 | Progress Note ---
Subjective: F/U: Acute PE, Dyspnea Doing better today. Breathing feels like it's improved-able to take deeper breaths. No pain with breathing. Denies cough or congestion. Not having chest pressure or pain. Eating well. No n/v or ab pain. Bowels moving. Strength improving. Objective Vital signs: Temperature 97.9 F 03/13/17 23:43 Pulse Rate 85 03/14/17 07:48 Respiratory Rate 18 03/14/17 07:48 Blood Pressure 129/73 03/14/17 07:48 Pulse Oximetry 94 03/14/17 07:48 Oxygen Delivery Method Room Air Weight: 83.2 kg - Constitutional Present: no acute distress, well nourished, well developed, cooperative - Routine HEENT Exam Head: Present: normocephalic, atraumatic Eye: Present: EOMI, PERRL. Absent: conjunctival icterus ENT: Present: mucous membranes moist - Routine Respiratory Exam Present: diminished air movement (Blunted right basilar sounds). Absent: dyspnea, respiratory distress, rhonchi, wheezes, crackles - Routine Cardiovascular Exam Present: RRR, no murmur - Routine Abdominal Exam Present: soft, normoactive bowel sounds, non distended, non tender - Routine Extremities Exam Present: cyanosis, clubbing, edema (+2 B LE edema ) - Routine Musculoskeletal Exam Musculoskeletal: Present: no clubbing or cyanosis - Routine Skin Exam Present: intact, warm, normal turgor. Absent: cyanosis, pallor - Routine Neurological Exam Present: alert, CN II-XII intact, vision grossly intact, hearing grossly intact. Absent: motor deficit, altered mental status - Routine Psychiatric Exam Present: normal affect, normal thought process, cooperative. Absent: anxious, agitated Results - Labs CBC & Chem 7: 03/14/17 04:48 03/14/17 04:48 Labs: Laboratory Tests 03/14/17 04:48 INR 2.37 H Assessment and Plan (1) Pulmonary embolism Current visit: Yes Status: Acute (2) Hemothorax on right Current visit: No Status: Acute (3) Parkinsons disease Current visit: No Status: Chronic (4) Atrial fibrillation, chronic Current visit: No Status: Chronic (5) Thrombocytosis Current visit: Yes Status: Acute DVT Prophylaxis: Coumadin Resuscitation Status: Full Code Assessment and Plan: 03/14/17--[place] Impression: Pulmonary embolism, provoked with recent hospitalization and inactivity --> Started on therapeutic lovenox + warfarin, INR therapeutic at 2.3 today S/P recent fall with rib fractures and subsequent hemothorax Subtherapeutic INR on admission - resolved Anemia of chronic disease, Hb 10.8 today-stable Thrombocytosis, presumably reactive, Plt 744 Parosyxmal afib, rate controlled and AC as above Parkinsons disease, controlled on sinemet but at high risk for further falls Plan/Recommendations: Will discharge to home - Respiratory status improved and INR therapeutic. No evidence of bleeding/blood loss. Continue with Coumadin - will continue home dose prior to admission. Recommend rechecking INR later this week. Encourage continued activities to help improve strengthening and stability - encourage to continue modalities taught by therapists. Keep F/U appointment with Dr Gupta for pulmonary care. Will have patient F/U with Dr Dueñas later this week (has apt on [place] 03/16) - check INR at that time. See orders for details. Case discussed with Family. Time spent with patient care and discharge greater than 35 minutes. Sepsis Assessment - Evaluation Sepsis screening result: No Definite Risk Hospital Course Summary Disclaimer: The visit summary below is not to be considered part of the above Progress Note. Hospital Course: 03/11/17 Admit Pulmonary embolism Acute present on admission. Not unexpected in this patient who has spent over a month in rehab/acute care. just restarted anticoagulation. Interestingly enough there is an incidence of increased thrombogenesis when starting coumadin. Thrombocytosis did not help the cause. Will cover with therapeutic lovenox while continuing coumadin. Of course the real issue is the hemothorax. Currently back on coumadin the effusion is improving. With therapeutic lovenox there is risk of bleeding. consider repeat CXR in am. repeat CBC already ordered. Difficult decision but risk is greater for progression of PE. Already evidence of right heart strain on CT (?related to lung disease) Hemothorax on right As noted above the patient has a resolving hemothorax from fx ribs. CT chest demonstrates improving. With anticoagulation increased increased risk of bleeding. Monitor as described above. Parkinsons disease Continue Sinemet. Obviously spent sig time in IRU; if in hospital greater than a day would r/c restarting PT and OT Atrial fibrillation, chronic Continue Loumadin and now Lovenox. monitor on tele. Rate controlled currently with b gustavo. Obviously goal is rate and not rhythm control. Thrombocytosis Elevated plt count. Possible due to acute on chronic illness. Repeat in am and follow 03/12/17--[place] Impression: Pulmonary embolism, provoked with recent hospitalization and inactivity --> Started on therapeutic Lovenox + warfarin S/P recent fall with rib fractures and subsequent hemothorax --> Chest tubes removed and discharged home on warfarin for afib --> Needs close monitoring with further anticoagulation as above as he is at risk for recurrent hemothorax Subtherapeutic INR on admission Anemia of chronic disease, Hb 10.2 today (decreased from 11.1) Thrombocytosis, presumably reactive, Plt 758K today (decreased) Parosyxmal afib, rate controlled and AC as above Parkinsons disease, controlled on Sinemet but at high risk for further falls Plan/Recommendations: Close monitoring of warfarin and Lovenox for PE given recent bleeding issues Repeat PA/Lat chest film tomorrow for surveillance Daily CBC and renal panel acutely Make inpatient as he will need to be monitored until INR therapeutic, lovenox stopped due to bleeding risk Monitor closely due to fall risk Continue home meds including Sinemet, BB, home diuretic 03/13/17--[place] Impression: Pulmonary embolism, provoked with recent hospitalization and inactivity --> Started on therapeutic Lovenox + warfarin, INR therapeutic at 2.4 today S/P recent fall with rib fractures and subsequent hemothorax --> Chest tubes removed and discharged home on warfarin for afib --> Needs close monitoring with full anticoagulation as above as he is at risk for recurrent hemothorax Subtherapeutic INR on admission Anemia of chronic disease, Hb 10.4 today, overall stable Thrombocytosis, presumably reactive, Plt 730K today (decreased) Parosyxmal afib, rate controlled and AC as above Parkinsons disease, controlled on Sinemet but at high risk for further falls Plan/Recommendations: Close monitoring of warfarin and Lovenox for PE given recent bleeding issues --> Stop lovenox this afternoon, decrease warfarin dosing to 4 mg daily as INR rising rapidly, recheck in AM Repeat PA/Lat chest film today for surveillance Daily CBC and renal panel acutely as well as INR Monitor closely due to fall risk Continue home meds including Sinemet, BB, home diuretic dosing 03/14/17--[place] Impression: Pulmonary embolism, provoked with recent hospitalization and inactivity --> Started on therapeutic Lovenox + warfarin, INR therapeutic at 2.3 today S/P recent fall with rib fractures and subsequent hemothorax Subtherapeutic INR on admission - resolved Anemia of chronic disease, Hb 10.8 today-stable Thrombocytosis, presumably reactive, Plt 744 Parosyxmal afib, rate controlled and AC as above Parkinsons disease, controlled on Sinemet but at high risk for further falls Plan/Recommendations: Will discharge to home - Respiratory status improved and INR therapeutic. No evidence of bleeding/blood loss. Continue with Coumadin - will continue home dose prior to admission. Recommend rechecking INR later this week. Encourage continued activities to help improve strengthening and stability - encourage to continue modalities taught by therapists. Keep F/U appointment with Dr Gupta for pulmonary care. Will have patient F/U with Dr Dueñas later this week (has apt on [place] 03/16) - check INR at that time. See orders for details.
[2017-03-14] MEDS ORDERED: WARFARIN 5 MG TABLET PO ONE (11:58)
[2017-03-14] MEDS ORDERED: WARFARIN 6 MG TABLET PO SCH (12:00)
--- NOTE | 2017-03-14 12:02 | Discharge Summary ---
Discharge Information Date of admission: 03/12/17 10:12 Anticipated date of discharge: 03/14/17 Attending Physician: Sophia Vincent MD Primary care physician: José Miguel Dueñas MD - Discharge Diagnosis Discharge Diagnosis: Primary diagnosis: Pulmonary embolism, provoked with recent hospitalization and inactivity Associated conditions and complications: S/P recent fall with rib fractures and subsequent hemothorax Subtherapeutic INR on admission Anemia of chronic disease Thrombocytosis, presumably reactive Parosyxmal afib, rate controlled and AC as above Parkinsons disease, controlled on Sinemet but at high risk for further falls - Laboratory Labs: Laboratory Tests (Admission) 03/11/17 16:56 WBC 11.3 H Hgb 11.1 L Hct 35.0 L MCV 91.9 Plt Count 805 H* Laboratory Tests (Admission) 03/11/17 16:56 INR 1.62 H 03/14/17 04:48 03/14/17 04:48 Laboratory Tests 03/14/17 04:48 INR 2.37 H - Radiology Radiology: Date of Exam: 03/11/17 Type of Exam: CT chest w/o con Comparison: 02/16/2017 Findings: Lungs and airways: Right pulmonary relaxation atelectasis. Left basilar dependent/subsegmental atelectasis. No discrete pulmonary nodule or mass. No endoluminal lesion. Pleura: Improved but persistent moderate right pleural effusion with slight hyperdensity related to prior hemothorax. No pneumothorax. Heart and mediastinum: The visualized thyroid gland appears normal. No mediastinal or hilar lymphadenopathy. The visualized esophagus appears normal. Cardiomegaly without pericardial effusion. Coronary arterial and thoracic aortic atherosclerotic calcifications. Abdomen: Innumerable hepatic cysts. Abdominal aortic atherosclerotic calcifications. Osseous structures and soft tissues: No axillary lymphadenopathy. Redemonstration of multiple subacute nondisplaced fractures of the right eighth , ninth, 10th, 11th, and 12th ribs. Degenerative disc disease of the thoracic spine. Impression: 1. Improved but persistent resolving moderate right hemothorax related to subacute nondisplaced fractures of multiple right ribs. 2. No pneumothorax. Date of Exam: 03/11/17 Type of Exam: CT angio pulm emboli Findings: Pulmonary arteries: Exam is diagnostic to the segmental pulmonary arterial level. No definite filling defects identified to confirm a pulmonary embolus. The primary report mentions subtle possible filling defects within a couple right lower segmental pulmonary arteries which are in the region of significant streak artifact and are not definite by any means. Other findings: Compressive atelectasis in the right middle and lower lobes due to a multilocular right pleural effusion. Small left effusion with left basilar atelectasis. No focal pneumonia or pneumothorax. No axillary or mediastinal adenopathy. No pleural rim enhancement to suggest an empyema. Heart is enlarged. No pericardial effusion. Coronary artery calcifications. The upper abdomen shows innumerable cystic lesions throughout the liver, some with peripheral calcification, incompletely evaluated on this exam. Multiple old rib deformities. Impression: No definite pulmonary embolus. Preliminary report mentions an area of possible PE in the right lower zone which is questionable due to significant streak artifact. Multiloculated right pleural effusion. There is a preliminary report by [facility]. History of Present Illness HPI: This is a 81 y/o male who fell on 02/16 and fractured ribs on the right. The patient had a hemopneumothorax and received a chest tube and was transferred to [place]. He was discharged back to [facility] on 02/28 into the ARU and completed his therapy and was discharged to home 2 days ago. Since discharge he has had increased weakness and shortness of breath. the patient has a history of atrial fibrillation and his Coumadin was held due to hemothorax. The decision was made to restart his Coumadin about 2 days ago. In the ED a plain CT of the chest described improved hemothorax. Because of the shortness of breath the patient had a CT angio of the chest that demonstrated a small PE on the right. The patient at this time will be admitted with further evaluation of his PE and to monitor for increased bleeding with increased anticoagulation. For complete details of the H&P refer to that document. Objective Vital signs: Temperature 97.9 F 03/13/17 23:43 Pulse Rate 85 03/14/17 07:48 Respiratory Rate 18 03/14/17 07:48 Blood Pressure 129/73 03/14/17 07:48 Pulse Oximetry 94 03/14/17 07:48 Oxygen Delivery Method Room Air Weight: 83.2 kg Hospital Course This is a general summary of the patient's hospital course. For more details refer to the complete medical record. Hospital course: 03/11/17 Admit Pulmonary embolism Acute present on admission. Not unexpected in this patient who has spent over a month in rehab/acute care. just restarted anticoagulation. Interestingly enough there is an incidence of increased thrombogenesis when starting coumadin. Thrombocytosis did not help the cause. Will cover with therapeutic lovenox while continuing coumadin. Of course the real issue is the hemothorax. Currently back on coumadin the effusion is improving. With therapeutic lovenox there is risk of bleeding. consider repeat CXR in am. repeat CBC already ordered. Difficult decision but risk is greater for progression of PE. Already evidence of right heart strain on CT (?related to lung disease) Hemothorax on right As noted above the patient has a resolving hemothorax from fx ribs. CT chest demonstrates improving. With anticoagulation increased increased risk of bleeding. Monitor as described above. Parkinsons disease Continue Sinemet. Obviously spent sig time in IRU; if in hospital greater than a day would r/c restarting PT and OT Atrial fibrillation, chronic Continue Loumadin and now Lovenox. monitor on tele. Rate controlled currently with b gustavo. Obviously goal is rate and not rhythm control. Thrombocytosis Elevated plt count. Possible due to acute on chronic illness. Repeat in am and follow 03/12/17--[place] Impression: Pulmonary embolism, provoked with recent hospitalization and inactivity --> Started on therapeutic Lovenox + warfarin S/P recent fall with rib fractures and subsequent hemothorax --> Chest tubes removed and discharged home on warfarin for afib --> Needs close monitoring with further anticoagulation as above as he is at risk for recurrent hemothorax Subtherapeutic INR on admission Anemia of chronic disease, Hb 10.2 today (decreased from 11.1) Thrombocytosis, presumably reactive, Plt 758K today (decreased) Parosyxmal afib, rate controlled and AC as above Parkinsons disease, controlled on Sinemet but at high risk for further falls Plan/Recommendations: Close monitoring of warfarin and Lovenox for PE given recent bleeding issues Repeat PA/Lat chest film tomorrow for surveillance Daily CBC and renal panel acutely Make inpatient as he will need to be monitored until INR therapeutic, lovenox stopped due to bleeding risk Monitor closely due to fall risk Continue home meds including Sinemet, BB, home diuretic 03/13/17--[place] Impression: Pulmonary embolism, provoked with recent hospitalization and inactivity --> Started on therapeutic Lovenox + warfarin, INR therapeutic at 2.4 today S/P recent fall with rib fractures and subsequent hemothorax --> Chest tubes removed and discharged home on warfarin for afib --> Needs close monitoring with full anticoagulation as above as he is at risk for recurrent hemothorax Subtherapeutic INR on admission Anemia of chronic disease, Hb 10.4 today, overall stable Thrombocytosis, presumably reactive, Plt 730K today (decreased) Parosyxmal afib, rate controlled and AC as above Parkinsons disease, controlled on Sinemet but at high risk for further falls Plan/Recommendations: Close monitoring of warfarin and Lovenox for PE given recent bleeding issues --> Stop lovenox this afternoon, decrease warfarin dosing to 4 mg daily as INR rising rapidly, recheck in AM Repeat PA/Lat chest film today for surveillance Daily CBC and renal panel acutely as well as INR Monitor closely due to fall risk Continue home meds including Sinemet, BB, home diuretic dosing 03/14/17--[place] Impression: Pulmonary embolism, provoked with recent hospitalization and inactivity --> Started on therapeutic Lovenox + warfarin, INR therapeutic at 2.3 today S/P recent fall with rib fractures and subsequent hemothorax Subtherapeutic INR on admission - resolved Anemia of chronic disease, Hb 10.8 today-stable Thrombocytosis, presumably reactive, Plt 744 Parosyxmal afib, rate controlled and AC as above Parkinsons disease, controlled on Sinemet but at high risk for further falls Plan/Recommendations: Will discharge to home - Respiratory status improved and INR therapeutic. No evidence of bleeding/blood loss. Continue with Coumadin - will continue home dose prior to admission. Recommend rechecking INR later this week. Encourage continued activities to help improve strengthening and stability - encourage to continue modalities taught by therapists. Keep F/U appointment with Dr Gupta for pulmonary care. Will have patient F/U with Dr Dueñas later this week (has apt on [place] 03/16) - check INR at that time. See orders for details. Time spent with patient: discharge greater than 30 minutes DVT Prophylaxis: Lovenox, Coumadin Discharge Plan - Med Rec/Dispo Referrals/Follow Up: José Miguel Dueñas MD [Family Provider] - (On 03/16 as schedules - Recheck INR and CBC. ) Pankaj Marrero MD [Physician] - (As scheduled ) Prescriptions: New Warfarin Sodium 5 mg PO WS #30 tablet Continue Turmeric/Turmeric Root Extract [Turmeric 450-50 mg Capsule] 500 mg PO DAILY # 0 Carbidopa/Levodopa [Carbidopa-Levodopa 25-100 Tab] 1 tab PO TID Furosemide [Lasix] 20 mg PO 0900,1400 #60 tablet Multivitamin [One Daily] 1 each PO DAILY Atenolol 12.5 mg PO DAILY #0 Ubidecarenone [Co Q-10] 100 mg PO DAILY #0 Ezetimibe [Zetia] 10 mg PO DAILY #0 Acetaminophen [Acetaminophen Extra Strength] 500 mg PO Q4WA Amox/Clav [Augmentin] 875 mg PO Q12H #10 tablet Discontinued Warfarin Sodium [Coumadin] 5 mg PO 4XW Warfarin Sodium 6 mg PO [id number] Discharge Instructions/Outpatient Orders: Final Provider Discharge Instructions Location: Determined By Patient - Disposition 01 Discharged Home, Self-Care - Attestation Attestation Narrative: 03/14/17 12:18 I have independently interviewed and examined patient prior to discharge. See my progress note from today for details. Patient is medically stable for discharge to home.
--- NOTE | 2017-03-15 15:24 | XRay Report ---
INDICATION: f/u hemothorax, on lovenox + warfarin PROCEDURE: CHEST 2-VIEWS UPRIGHT (PA & LAT) Encounter: Initial COMPARISON: Chest CT dated March 11, 2017 and chest x-ray dated March 08, 2017 FINDINGS: Right-sided hemothorax is slowly decreasing. Slight improvement in aeration of the right middle and lower lobes. Moderate sized hemothorax remaining. Left lung appears clear. No pneumothorax. Heart size and mediastinal contours are grossly stable. Pulmonary vascularity is grossly normal. Multiple right rib fractures again seen. Impression: Slow interval improvement in the right-sided hemopneumothorax. .
== END 2017-03-14 13:35 | disposition home or self-care (01) | DRG 176 ==
LOC: ED 15:43 → MED 15:43
PROVIDERS: ADMIT Emergency Medicine; ATTEND Internal Medicine

== ENCOUNTER 2017-04-21 15:10 | Inpatient (IN) ==
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
--- OUTSIDE RECORDS SUMMARY | 2017-04-21 15:20 | External Medical Summary | Referral Summary ---
:1935 Author Organization [facility] Address [address] [place] [address] DANGELO Romano [address] Care Team Providers Name Role Phone José Miguel Dueñas V Primary Care Physician Encounter VC Date(s): 05/07/15 - 05/07/15 [facility] [address] [place] [address] [place] Discharge Diagnosis: Atrial fibrillation (disorder) Discharge Diagnosis: Actinic keratosis Discharge Diagnosis: Abnormal laboratory test result Discharge Disposition: 01-Home or Self Care Attending Physician: José Miguel Dueñas MD Admitting Physician: José Miguel Dueñas MD Vital Signs Most recent to oldest [Reference Range]: 1 Temperature Tympanic [36.6-38.1 degC] 35.7 degC *LOW* (05/07/15 9:45 AM) Peripheral Pulse Rate [60-100 bpm] 62 bpm (05/07/15 9:45 AM) Blood Pressure [90-140/60-90 mmHg] 120/60 mmHg (05/07/15 9:45 AM) Problem List Condition Effective Dates Status Health Status Informant Allergic rhinitis(Confirmed) Active Allergies(Confirmed) < 05/17/14 Resolved Arthritis(Confirmed) Active Atrial fibrillation Active (disorder)(Confirmed) Chicken pox(Confirmed) < 05/17/14 Resolved Decreased vibratory sense(Confirmed) < 09/02/14 Resolved Diplopia(Confirmed) Active Dyslipidemia(Confirmed) Active Chronic anticoagulation(Confirmed) Active Hay fever(Confirmed) < 05/17/14 Resolved Hydrocele, right(Confirmed) < 05/17/14 Resolved Liver cyst, multiple(Confirmed) Active Liver disease(Confirmed) < 05/17/14 Resolved 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 Active anticoagulant - [...] TAKE 1/2 TABLET(S) DAILY, # 15 tabs, 2 Refill(s), eRx: [facility], TAKE1/2 TABLET(S) DAILY Start Date: 10/08/15 Status: Orderedcalcium-vitamin D extended release tabs, Oral, qAM, 0 Refill(s) Start Date: 03/28/14 Status: Orderedcarbidopa-levodopa 25 mg-100 mg oral tablet 1 tabs, Oral, TID, # 270 tabs, 3 Refill(s), Pharmacy: [place], [place] Start Date: 06/09/15 Status: OrderedCo-Q10 Oral, 0 Refill(s) Start Date: 03/28/14 Status: Orderedmultivitamin Daily, 0 Refill(s) Start Date: 03/28/14 Status: Orderedturmeric curcumin turmeric curcumin, 0 Refill(s) Start Date: 05/07/15 Status: OrderedTylenol Caplet 325 mg, Oral, q4hr, 0 Refill(s) Start Date: 03/28/14 Status: OrderedVESIcare 5 mg oral tablet 1 tabs, Oral, Daily, # 30 tabs, 0 Refill(s) Start Date: 03/28/14 Status: Orderedwarfarin 1 mg oral tablet See Instructions, PT TAKES 6MG ON TUESDAY AND 5MG 6 DAYS A WEEK, # 60 Each, [facility] TAKES 6MG ON TUESDAY AND 5MG 6 DAYS A WEEK Start Date: 10/08/15 Status: Orderedwarfarin 1 mg oral tablet See Instructions, PT TAKES 6MG ON TUESDAY AND 5MG 6 DAYS A WEEK, # 60 Each, 1 Refill(s), Pharmacy: [facility], PT TAKES 6MG ON TUESDAY AND 5MG 6 DAYS A WEEK Start Date: 09/03/15 Status: Orderedwarfarin 3 mg oral tablet See Instructions, PT TAKES 6MG ON M,TH AND 5MG 5 DAYS A WEEK, # 60 tabs, 1 Refill(s), Pharmacy: [place], [place], PT TAKES 6MG ON M,TH AND 5MG 5 DAYS A WEEK Start Date: 08/07/15 Status: OrderedZetia 10 mg oral tablet See Instructions, TAKE ONE (1) TABLET(S) DAILY, # 30 Each, 7 Refill(s), eRx: [place], [place], TAKE ONE (1) TABLET(S) DAILY Start Date: 04/24/15 Status: Ordered Results No data available for this section Immunizations Vaccine Date Refusal Reason influenza virus vaccine, inactivated 06/10/15 pneumococcal 13-valent conjugate vaccine 12/12/14 pneumococcal 23-polyvalent vaccine 10/23/08 tetanus-diphth toxoids (Td) adult/adol 10/23/08 zoster vaccine live 06/29/12 Procedures Procedure Date Related Diagnosis Body Site Destruction (eg, laser surgery, electrosurgery, 05/07/15 cryosurgery, chemosurgery, surgical curettement), premalignant lesions (eg, actinic keratoses); first lesion Destruction (eg, laser surgery, electrosurgery, 05/07/15 cryosurgery, chemosurgery, surgical curettement), premalignant lesions (eg, actinic keratoses); first lesion Destruction (eg, laser surgery, electrosurgery, 05/07/15 cryosurgery, chemosurgery, surgical curettement), premalignant lesions (eg, actinic keratoses); first lesion Colonoscopy1 03/16/12 Colonoscopy2 02/26/09 [facility] skin ca removed from nose 2004 Colonoscopy 03/2004 Colonoscopy 11/2002 Flex sig 10/24/02 Prostate surgical3 1989 Appendectomy 1954 Tonsillectomy 1950 Circumcision 1934 Hernia4 1repeat in 5 [id number] polyps, repeat 3 [id number] NextGen: Infa Social History Social History Type Response Smoking Status Never smoker Assessment and Plan Extracted from: Title: Office Visit Note Author: José Miguel Dueñas MD Date: 05/07/15 Assessment/Plan Abnormal laboratory test result Actinic keratosis Atrial fibrillation (disorder) Test results were discussed. We also discussed other medication questions. See dictation above. Echo nitrogen freeze performed on the actinic and seborrheic keratoses. Follow-up when necessary. Extracted from: Title: Ambulatory Patient Education Author: José Miguel Dueñas MD Date: Family Medicine Atrial Fibrillation Atrial fibrillation is a type of irregular heart rhythm (arrhythmia). During atrial fibrillation, the upper chambers of the heart (atria) quiver continuously in a chaotic pattern. This causes an irregular and often rapid heart rate. Atrial fibrillation is the result of the heart becoming overloaded with disorganized signals that tell it to beat. These signals are normally released one at a time by a part of the right atrium called the sinoatrial node. They then travel from the atria to the lower chambers of the heart (ventricles), causing the atria and ventricles to contract and pump blood as they pass. In atrial fibrillation, pa rts of the atria outside of the sinoatrial node also release these signals. This results in two problems. First, the atria receive so many signals that they do not have time to fully contract. Second, t he ventricles, which can only receive one signal at a time, beat irregularly and out of rhythm with the atria. There are three types of atrial fibrillation: Paroxysmal. Paroxysmal atrial fibrillation starts suddenly and stops on its own within a week. Persistent. Persistent atrial fibrillation lasts for more than a week. It may stop on its own or with treatment. Permanent. Permanent atrial fibrillation does not go away. Episodes of atrial fibrillation may lead to permanent atrial fibrillation. Atrial fibrillation can prevent your heart from pumping blood normally. It increases your risk of stroke and can lead to heart failure. CAUSES Heart conditions, including a heart attack, heart failure, coronary artery disease, and heart valve conditions. Inflammation of the sac that surrounds the heart (pericarditis). Blockage of an artery in the lungs (pulmonary embolism). Pneumonia or other infections. Chronic lung disease. Thyroid problems, especially if the thyroid is overactive (hyperthyroidism ). Caffeine, excessive alcohol use, and use of some illegal drugs. Use of some medicines, including certain decongestants and diet pills. Heart surgery. defects. Sometimes, no cause can be found. When this happens, the atrial fibrillation is called lone atrial fibrillation. The risk of complications from atrial fibrillation increases if you have lone atrial fibrillation and you are age 60 years or older. RISK FACTORS Heart failure. Coronary artery disease. Diabetes mellitus. High blood pressure (hypertension). Obesity. Other arrhythmias. Increased age. SIGNS AND SYMPTOMS A feeling that your heart is beating rapidly or irregularly. A feeling of discomfort or pain in your chest. Shortness of breath. Sudden light-headedness or weakness. Getting tired easily when exercising. Urinating more often than normal (mainly when atrial fibrillation first begins). In paroxysmal atrial fibrillation, symptoms may start and suddenly stop. DIAGNOSIS Your health care provider may be able to detect atrial fibrillation when taking your pulse. Your health care provider may have you take a test called an ambulatory electrocardiogram (ECG). An ECG record s your heartbeat patterns over a 24-hour period. You may also have other tests , such as: Transthoracic echocardiogram (TTE). During echocardiography, sound waves are used to evaluate how blood flows through your heart. Transesophageal echocardiogram (DRISS). Stress test. There is more than one type of stress test. If a stress test is needed, ask your health care provider about which type is best for you. Chest X-ray exam. Blood tests. Computed tomography (CT). TREATMENT Treatment may include: Treating any underlying conditions. For example, if you have an overactive thyroid, treating the condition may correct atrial fibrillation. Taking medicine. Medicines may be given to control a rapid heart rate or to prevent blood clots, heart failure, or a stroke. Having a procedure to correct the rhythm of the heart: Electrical cardioversion. During electrical cardioversion, a controlled, low-energy shock is delivered to the heart through your skin. If you have chest pain, very low blood pressure, or sudden hea rt failure, this procedure may need to be done as an emergency. Catheter ablation. During this procedure, heart tissues that send the signals that cause atrial fibrillation are destroyed. Surgical ablation. During this surgery, thin lines of heart tissue that carry the abnormal signals are destroyed. This procedure can either be an open- heart surgery or a minimally invasive surgery. With the minimally invasive surgery, small cuts are made to access the heart instead of a large opening. Pulmonary venous isolation. During this surgery, tissue around the veins that carry blood from the lungs (pulmonary veins) is destroyed. This tissue is thought to carry the abnormal signals. HOME CARE INSTRUCTIONS Take medicines only as directed by your health care provider. Some medicines can make atrial fibrillation worse or recur. If blood thinners were prescribed by your health care provider, take them exactly as directed. Too much blood-thinning medicine can cause bleeding. If you take too little, you will not have the nee ded protection against stroke and other problems. Perform blood tests at home if directed by your health care provider. Perform blood tests exactly as directed. Quit smoking if you smoke. Do not drink alcohol. Do not drink caffeinated beverages such as coffee, soda, and some teas. You may drink decaffeinated coffee, soda, or tea. Maintain a healthy weight.Do not use diet pills unless your health care provider approves. They may make heart problems worse. Follow diet instructions as directed by your health care provider. Exercise regularly as directed by your health care provider. Keep all follow-up visits as directed by your health care provider. This is important. PREVENTION The following substances can cause atrial fibrillation to recur: Caffeinated beverages. Alcohol. Certain medicines, especially those used for breathing problems. Certain herbs and herbal medicines, such as those containing ephedra or ginseng. Illegal drugs, such as cocaine and amphetamines. Sometimes medicines are given to prevent atrial fibrillation from recurring. Proper treatment of any underlying condition is also important in helping prevent recurrence. SEEK MEDICAL CARE IF: You notice a change in the rate, rhythm, or strength of your heartbeat. You suddenly begin urinating more frequently. You tire more easily when exerting yourself or exercising. SEEK IMMEDIATE MEDICAL CARE IF: You have chest pain, abdominal pain, sweating, or weakness. You feel nauseous. You have shortness of breath. You suddenly have swollen feet and ankles. You feel dizzy. Your face or limbs feel numb or weak. You have a change in your vision or speech. MAKE SURE YOU: Understand these instructions. Will watch your condition. Will get help right away if you are not doing well or get worse. Document Released: 07/18/2006 Document Revised: 12/02/2014 Document Reviewed: 08/28/2013 ExitCare Patient Information 2015 [employer]. This information is not intended to replace advice given to you by your health care provider. Make sure you discuss any questions you have with your health care provider. No follow up information was provided.
--- OUTSIDE RECORDS SUMMARY | 2017-04-21 15:20 | External Medical Summary | Referral Summary ---
:1935 Author Organization [facility] Address [address] [place] [address] [place] Romano [address] Care Team Providers Name Role Phone José Miguel Dueñas V Primary Care Physician Encounter VC Date(s): 12/12/14 - 12/12/14 [facility] [address] [place] [address] [place] Discharge Diagnosis: ATRIAL FIBRILLATION Discharge Diagnosis: Need for pneumococcal vaccination Discharge Diagnosis: Prostate cancer Discharge Diagnosis: BRIANNE (obstructive sleep apnea) Discharge Diagnosis: Parkinsonism Discharge Diagnosis: Polycystic liver disease Discharge Diagnosis: Allergic rhinitis 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 Discharge Diagnosis: Dyslipidemia [...] multiple(Confirmed) Active Liver disease(Confirmed) < 05/17/14 Resolved intermediate designer 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 Active anticoagulant - [...] 15 tabs, 3 Refill(s), [facility] [place], pt will need to schedule an 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 with a 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 for further refills, TAKE 1/2TABLET(S) DAILY Start Date: 04/10/15 Status: Orderedcalcium-vitamin D extended release tabs, Oral, qAM, 0 Refill(s) Start Date: 03/28/14 Status: Orderedcarbidopa-levodopa 25 mg-100 mg oral tablet See Instructions, TAKE ONE (1) TABLET(S) THREE TIMES DAILY, # 90 Each, 3 Refill( s), eRx: Pharmacy- [facility] [place], TAKE ONE (1) TABLET(S) THREE TIMES DAILY Start Date: 02/26/15 Status: OrderedCo-Q10 Oral, 0 Refill(s) Start Date: 03/28/14 Status: OrderedCoumadin 3 mg oral tablet See Instructions, 6MG ON MON,WED,TUESDAY & 5MG THE OTHER DAYS, # 60 Each, 1 Refill(s), eRx: [facility] [place], 6MG ON MON,WED,TUESDAY &amp ; 5MG THE [...] Each, 7 Refill(s), eRx: [facility] [place], [place], TAKE ONE (1) TABLET(S) DAILY Start [...] 1950 Circumcision 1934 Hernia4 1repeat in 5 [id number] polyps, repeat 3 [id number] NextGen: Infa Social History Social History Type Response Smoking Status Never smoker Assessment and Plan Extracted from: Title: CRMMP Author: José Miguel Dueñas MD Date: 12/12/14 Assessment/Plan Allergic rhinitis Lsjy-dod-cfiwuyy treatment as needed. ATRIAL FIBRILLATION, Atrial fibrillation Stable on anticoagulation. Dyslipidemia Recheck fasting lipids another day sometime soon. alf current use of anticoagulant Need for pneumococcal [...]
--- OUTSIDE RECORDS SUMMARY | 2017-04-21 15:20 | External Medical Summary | Referral Summary ---
:1935 Author Organization [facility] Address [address] [place] [address] D[place] Romano [address] Care Team Providers Name Role Phone José Miguel Dueñas V Primary Care Physician Encounter VC Date(s): 07/16/15 - 07/16/15 [facility] [address] [place] [address] [place] [phone] [place] Discharge Diagnosis: Apnea, sleep Discharge Diagnosis: Parkinsons Discharge Diagnosis: Atrial fibrillation Discharge Diagnosis: LVH (left ventricular hypertrophy) Discharge Diagnosis: Hypercholesteremia Discharge Diagnosis: Family history of heart attack Discharge Diagnosis: Statin intolerance Discharge Disposition: 01-Home or Self Care Attending Physician: Matheus Manzano MD Admitting Physician: Matheus Manzano MD Referring Physician: José Miguel Dueñas MD Vital Signs Most recent to oldest [Reference Range]: 1 Peripheral Pulse Rate [60-100 bpm] 56 bpm *LOW* (07/16/15 11:54 AM) Blood Pressure [90-140/60-90 mmHg] 116/64 mmHg (07/16/15 11:54 AM) Problem List Condition Effective Dates Status Health Status Informant Allergic rhinitis(Confirmed) Active Allergies(Confirmed) < 05/17/14 Resolved Arthritis(Confirmed) Active Atrial fibrillation Active (disorder)(Confirmed) Chicken pox(Confirmed) < 05/17/14 Resolved Decreased vibratory sense(Confirmed) < 09/02/14 Resolved Diplopia(Confirmed) Active Dyslipidemia(Confirmed) Active Chronic anticoagulation(Confirmed) Active Hay fever(Confirmed) < 05/17/14 Resolved Hydrocele, right(Confirmed) < 05/17/14 Resolved Liver cyst, multiple(Confirmed) Active Liver disease(Confirmed) < 05/17/14 Resolved retirement 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 Active anticoagulant - [...] DAILY, # 15 tabs, 2 Refill(s), eRx: Pharmacy - [place], [place], TAKE 1/2 TABLET(S) DAILY Start Date: 07/10/15 Status: Orderedcalcium-vitamin D extended release tabs, Oral, qAM, 0 Refill(s) Start Date: 03/28/14 Status: Orderedcarbidopa-levodopa 25 mg-100 mg oral tablet 1 tabs, Oral, TID, # 270 tabs, 3 Refill(s), Pharmacy: [place], [place] Start Date: 06/09/15 Status: OrderedCo-Q10 Oral, 0 Refill(s) Start Date: 03/28/14 Status: OrderedCoumadin 3 mg oral tablet See Instructions, 6MG ON TUE,TUE,TUESDAY & 5MG THE OTHER DAYS, # 60 Each, 1 Refill(s), eRx: [place], [place], 6MG ON TUE,TUE,TUESDAY &amp ; 5MG THE OTHER DAYS Start [...] Orderedwarfarin 1 mg oral tablet See Instructions, patient takes 6mg on m,th and 5mg 5 days a week, # 60 tabs, 0 Refill(s), Pharmacy: [place], [place], patient takes 6mg on m,th and 5mg 5 days a week Start Date: 06/09/15 Status: OrderedZetia 10 mg oral tablet See Instructions, TAKE ONE (1) TABLET(S) DAILY, # 30 Each, 7 Refill(s), eRx: [place], [place], TAKE ONE (1) TABLET(S) DAILY Start [...] 1950 Circumcision 193 Hernia4 1repeat in 5 [id number] polyps, repeat 3 [id number] NextGen: Infa Social History Social History Type Response Smoking Status Never smoker Assessment and Plan Extracted from: Title: Office Visit Note Author: Matheus Manzano MD Date: 07/16/15 Assessment/Plan 1.LVH (left ventricular hypertrophy) Ordered: Echo, 2-D + Doppler + Color Flow 2.Atrial fibrillation Ordered: Echo, 2-D + Doppler + Color Flow 3.Parkinsons Ordered: Echo, 2-D + Doppler + Color Flow 4.Apnea, sleep Ordered: Echo, 2-D + Doppler + Color Flow 5.Statin intolerance 6.Hypercholesteremia 7.Family history of heart attack Discussion. We had an extensive discussion regarding the nature of atrial fibrillation and the managementof anticoagulationand heart rate. We discussed the previously noted echo findings pointing out that he has evidence of left ventricular hypertrophy. It's possible that this may be due to hypertension but it also is possible that he could have a hypertrophic cardiomyopathy. We advised him regarding the parkinsonism and the Parkinson's medications. We expressed concern regarding his occupation. 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 We did a repeat echocardiogram to assess forleft ventricular wall thickness and systolic performance. I did an EKGdemonstrates changes that are probably consistent with left ventricular hypertrophy. The ventricular response is preserved. He has nonspecific ST changes which are not greatly different from his previous ones. Certainly, he could have underlying coronary artery diseasebut he is asymptomatic Candice think relatively stable in this regard. Time of [id number] minutes in order to review multiple matters and educate the patient and .
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
--- OUTSIDE RECORDS SUMMARY | 2017-04-21 15:20 | External Medical Summary | Referral Summary ---
:1935 Author Organization Via [facility]CCA [facility] Address [address] [place] [address] [place] [address] Care Team Providers Name Role Phone José Miguel Dueñas V Primary Care Physician Encounter VC Date(s): 12/12/14 - 12/12/14 [facility] [address] [place] [address] Discharge Diagnosis: ATRIAL FIBRILLATION Discharge Diagnosis: Need for pneumococcal vaccination Discharge Diagnosis: Prostate cancer Discharge Diagnosis: BRIANNE (obstructive sleep apnea) Discharge Diagnosis: Parkinsonism Discharge Diagnosis: Polycystic liver disease Discharge Diagnosis: Allergic rhinitis 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 Discharge Diagnosis: [...] multiple(Confirmed) Active Liver disease(Confirmed) < 05/17/14 Resolved 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 Active anticoagulant [...] 15 tabs, 3 Refill(s), [facility] [place], pt will need to schedule an appt with a new associate professor of economics for further refills, TAKE 1/2TABLET(S) DAILY Start Date: 04/10/15 Status: Orderedcalcium-vitamin D extended release tabs, Oral, qAM, 0 Refill(s) Start Date: 03/28/14 Status: Orderedcarbidopa-levodopa 25 mg-100 mg oral tablet See Instructions, TAKE ONE (1) TABLET(S) THREE TIMES DAILY, # 90 Each, 3 Refill( s), eRx: Pharmacy- [facility] [place], TAKE ONE (1) TABLET(S) THREE TIMES DAILY Start Date: 02/26/15 Status: OrderedCo-Q10 Oral, 0 Refill(s) Start Date: 03/28/14 Status: OrderedCoumadin 3 mg oral tablet See Instructions, 6MG ON MON,WED,TUESDAY & 5MG THE OTHER DAYS, # 60 Each, 1 Refill(s), eRx: Pharmacy [facility] [place], 6MG ON MON,WED,TUESDAY &amp ; 5MG THE [...] Each, 7 Refill(s), eRx: [facility] [place], [place], TAKE ONE (1) TABLET(S) DAILY Start [...] 1950 Circumcision 1934 Hernia4 1repeat in 5 [id number] polyps, repeat 3 [id number] NextGen: Infa Social History Social History Type Response Smoking Status Never smoker Assessment and Plan Extracted from: Title: CRMMP Author: José Miguel Dueñas MD Date: 12/12/14 Assessment/Plan Allergic rhinitis Aixg-jgo-rjesjus treatment as needed. ATRIAL FIBRILLATION, Atrial fibrillation Stable on anticoagulation. Dyslipidemia Recheck fasting lipids another day sometime soon. half-way current use of anticoagulant Need for pneumococcal [...]
--- OUTSIDE RECORDS SUMMARY | 2017-04-21 15:20 | External Medical Summary | Referral Summary ---
:1935 Author Organization [facility] [address] [place] [address] Care Team Providers Name Role Phone José Miguel Dueñas V Primary Care Physician Encounter VC [facility] [id number] Date(s): 12/12/15 - 12/12/15 [facility] [address] [place] [address] [place] Discharge Diagnosis: Parkinson's disease Discharge Diagnosis: History of colon polyps Discharge Diagnosis: BRIANNE (obstructive sleep apnea) Discharge Diagnosis: Warfarin anticoagulation Discharge Diagnosis: Chronic GERD Discharge Diagnosis: Atrial fibrillation Discharge Diagnosis: Prostate cancer Discharge Diagnosis: Osteoarthritis Discharge Disposition: 01-Home or Self Care Attending Physician: José Miguel Dueñas MD Admitting Physician: José Miguel Dueñas MD Vital Signs Most recent to oldest [Reference Range]: 1 Peripheral Pulse Rate [60-100 bpm] 64 bpm (12/12/15 1:00 PM) Blood Pressure [90-140/60-90 mmHg] 102/60 mmHg (12/12/15 1:00 PM) Problem List Condition Effective Dates Status Health Status Informant Allergic rhinitis(Confirmed) Active Allergies(Confirmed) < 05/17/14 Resolved Arthritis(Confirmed) Active Atrial fibrillation Active (disorder)(Confirmed) Chicken pox(Confirmed) < 05/17/14 Resolved Decreased vibratory sense(Confirmed) < 09/02/14 Resolved Diplopia(Confirmed) Active Dyslipidemia(Confirmed) Active Chronic anticoagulation(Confirmed) Active Hay fever(Confirmed) < 05/17/14 Resolved Hydrocele, right(Confirmed) < 05/17/14 Resolved Liver cyst, multiple(Confirmed) Active Liver disease(Confirmed) < 05/17/14 Resolved assisted 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 Active anticoagulant - [...] # 15 tabs, 2 Refill(s), eRx: Pharmacy [facility], TAKE1/2 TABLET(S) DAILY Start Date: 10/08/15 Status: Orderedcalcium-vitamin D extended release tabs, Oral, qAM, 0 Refill(s) Start Date: 03/28/14 Status: Orderedcarbidopa-levodopa 25 mg-100 mg oral tablet 1 tabs, Oral, TID, # 270 tabs, 3 Refill(s), Pharmacy: [place], [place] Start Date: 06/09/15 Status: OrderedCo-Q10 Oral, [...] Orderedwarfarin 1 mg oral tablet See Instructions, TAKE 6 TABLETS ON TUESDAY & 5 TABLETS DAILY THE REST OF THE WEEK, # 60 tabs, eRx: [facility], TAKE 6 TABLETS ON TUESDAY & 5 TABLETS DAILY THE REST OF THE WEEK Start Date: 12/04/15 Status: OrderedZetia 10 mg oral tablet See Instructions, TAKE ONE (1) TABLET(S) DAILY, # 30 Each, 7 Refill(s), eRx: [facility] - [place], [place], TAKE ONE (1) TABLET(S) DAILY Start [...] 1950 Circumcision 1934 Hernia4 1repeat in 5 [id number] polyps, repeat 3 [id number] [id number] NextGen: Infa Social History Social History Type Response Smoking Status Never smoker Assessment and Plan Extracted from: Title: CRMMP Author: José Miguel Dueñas MD Date: 12/12/15 Impression and Plan Diagnosis History of colon polyps (OXA40-WZ Z86.010, Discharge, Medical). Prostate cancer (PRZ92-XN C61, Discharge, Medical). Parkinson's disease (ZWY87-FD G20, Discharge, Medical). Warfarin anticoagulation (SAG30-HV Z79.01, Discharge, Medical). Atrial fibrillation (RWI36-LD I48.91, Discharge, Medical). RBIANNE (obstructive sleep apnea) (TCE81-NV G47.33, Discharge, Medical). Osteoarthritis (WOD90-SG M19.90, Discharge, Medical). Chronic GERD (VLG85-QP K21.9, Discharge, Medical). Plan: Overall he is stable and we will plan to continue current medications. Labs to be checked fasting another day will include lipid panel, INR, PSA. Refer to Coumadin flowsheet for INR management. Follow-up 6 months or sooner if needed. . Orders Orders (Selected) Outpatient Orders Future (On Hold) PT/INR: PT/INR: .
--- OUTSIDE RECORDS SUMMARY | 2017-04-21 15:20 | External Medical Summary | Referral Summary ---
:1935 Author Organization Via REBECCA Bey, [facility] Address [address] [place] [address] [place] [address] Care Team Providers Name Role Phone José Miguel Dueñas V Primary Care Physician Encounter VC Date(s): 06/10/15 - 06/10/15 [facility] [address] [place] [address] [place] Discharge Diagnosis: Chronic anticoagulation Discharge Diagnosis: Parkinson's disease Discharge Diagnosis: Mixed hyperlipidemia Discharge Disposition: 01-Home or Self Care Attending Physician: José Miguel Dueñas MD Admitting Physician: José Miguel Dueñas MD Vital Signs Most recent to oldest [Reference Range]: 1 Temperature Tympanic [36.6-38.1 degC] 36.6 degC (06/10/15 1:45 PM) Peripheral Pulse Rate [60-100 bpm] 67 bpm (06/10/15 1:45 PM) Blood Pressure [90-140/60-90 mmHg] 98/50 mmHg (06/10/15 1:45 PM) Problem List Condition Effective Dates Status [...] 15 tabs, 3 Refill(s), Pharmacy: [facility] [place], pt will need to schedule an appt with a new smasher for further refills, TAKE 1/2TABLET(S) DAILY Start Date: 04/10/15 Status: Orderedcalcium-vitamin D extended release tabs, Oral, qAM, 0 Refill(s) Start Date: 03/28/14 Status: Orderedcarbidopa-levodopa 25 mg-100 mg oral tablet 1 tabs, Oral, TID, # 270 tabs, 3 Refill(s), Pharmacy: [facility] [place] Start Date: 06/09/15 Status: OrderedCo-Q10 Oral, 0 Refill(s) Start Date: 03/28/14 Status: OrderedCoumadin 3 mg oral tablet See Instructions, 6MG ON MON,TUE,TUESDAY & 5MG THE OTHER DAYS, # 60 Each, 1 Refill(s), eRx: [facility] [place], 6MG ON MON,WED,TUESDAY &amp ; 5MG THE [...] week, # 60 tabs, 0 Refill(s), Pharmacy: [place], [place], patient takes 6mg on m,th and 5mg 5 days a week Start Date: 06/09/15 Status: OrderedZetia 10 mg oral tablet See Instructions, TAKE ONE (1) TABLET(S) DAILY, # 30 Each, 7 Refill(s), eRx: [place], [place], TAKE ONE (1) TABLET(S) DAILY Start Date: 04/24/15 Status: Ordered Results Coagulation Most recent to oldest [Reference Range]: 1 PT Venous (06/10/15 1:28 PM) INR [0.8-1.2] 2.7 1 *HI* (06/10/15 1:28 PM) 1Result Comment: Normal (no anticoagulant): 0.8 - 1.2 Units Routine Therapeutic Range: 2.0 - 3.0 Units High Risk Therapeutic Range: 2.5 - 3.5 Units Immunizations Vaccine Date Refusal Reason influenza virus [...] 1950 Circumcision 193 Hernia4 1repeat in 5 sho5lzhzqeahxoa polyps, repeat 3 [id number] [id number] NextGen: Infa Social History Social History Type Response Smoking Status Never smoker Assessment and Plan Extracted from: Title: Office Visit Note Author: José Miguel Dueñas MD Date: 06/10/15 Assessment/Plan Atrial fibrillation (disorder) Chronic anticoagulation Mixed hyperlipidemia Need for influenza vaccination Parkinson's disease Overall stable/doing well. We'll go ahead with influenza vaccine today. Continue present care. See INR flowsheet for anticoagulation management. Follow up6 months or sooner if needed.
--- OUTSIDE RECORDS SUMMARY | 2017-04-21 15:20 | External Medical Summary | Referral Summary ---
:1935 Author Organization Via [facility] Address [address] [place] [address] [place] [address] Care Team Providers Name Role Phone José Miguel Dueñas V Primary Care Physician Encounter VC Date(s): 12/12/14 - 12/12/14 [facility] [address] [place] [address] [place] Discharge Diagnosis: ATRIAL FIBRILLATION Discharge Diagnosis: Need for pneumococcal vaccination Discharge Diagnosis: Prostate cancer Discharge Diagnosis: BRIANNE (obstructive sleep apnea) Discharge Diagnosis: Parkinsonism Discharge Diagnosis: Polycystic liver disease Discharge Diagnosis: Allergic rhinitis 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 Diagnosis: 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 Discharge Diagnosis: Dyslipidemia [...] multiple(Confirmed) Active Liver disease(Confirmed) < 05/17/14 Resolved rn long term care 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 Active anticoagulant - [...] 15 tabs, 3 Refill(s), [facility] [place], pt will need to schedule an appt with a new bag cutter for further refills, TAKE 1/2TABLET(S) DAILY Start Date: 04/10/15 Status: Orderedcalcium-vitamin D extended release tabs, Oral, qAM, 0 Refill(s) Start Date: 03/28/14 Status: Orderedcarbidopa-levodopa 25 mg-100 mg oral tablet See Instructions, TAKE ONE (1) TABLET(S) THREE TIMES DAILY, # 90 Each, 3 Refill( s), eRx: Pharmacy- [facility] [place], TAKE ONE (1) TABLET(S) THREE TIMES DAILY Start Date: 02/26/15 Status: OrderedCo-Q10 Oral, 0 Refill(s) Start Date: 03/28/14 Status: OrderedCoumadin 3 mg oral tablet See Instructions, 6MG ON MON,WED,TUESDAY & 5MG THE OTHER DAYS, # 60 Each, 1 Refill(s), eRx: Pharmacy [facility] [place], 6MG ON MON,WED,TUESDAY &amp ; 5MG THE [...] Each, 7 Refill(s), eRx: [facility] - [place], [place], TAKE ONE (1) TABLET(S) DAILY Start [...] 1950 Circumcision 1934 Hernia4 1repeat in 5 [id number] polyps, repeat 3 [id number] NextGen: Infa Social History Social History Type Response Smoking Status Never smoker Assessment and Plan Extracted from: Title: CRMMP Author: José Miguel Dueñas MD Date: 12/12/14 Assessment/Plan Allergic rhinitis Xobc-teg-mjxfprc treatment as needed. ATRIAL FIBRILLATION, Atrial fibrillation Stable on anticoagulation. Dyslipidemia Recheck fasting lipids another day sometime soon. [facility] current use of anticoagulant Need for pneumococcal [...]
--- OUTSIDE RECORDS SUMMARY | 2017-04-21 15:20 | External Medical Summary | Referral Summary ---
:1935 Author Organization [facility] Address [address] [facility] [address] [place] [address] Care Team Providers Name Role Phone José Miguel Dueñas V Primary Care Physician Encounter VC Date(s): 05/31/16 - 05/31/16 [address] [facility] [facility] [address] [facility] [address] [place] [address] [place] Discharge Diagnosis: Parkinson's disease Discharge Diagnosis: BRIANNE (obstructive sleep apnea) Discharge Diagnosis: Paresthesias Discharge Diagnosis: Diplopia Discharge Disposition: 01-Home or Self Care Attending Physician: Marcus Molina MD Admitting Physician: Marcus Molina MD Vital Signs Most recent to oldest [Reference Range]: 1 Peripheral Pulse Rate [60-100 bpm] 60 bpm (05/31/16 2:52 PM) Blood Pressure [90-140/60-90 mmHg] 112/62 mmHg (05/31/16 2:52 PM) Problem List Condition Effective Dates Status Health Status Informant Allergic rhinitis(Confirmed) Active Allergies(Confirmed) < 05/17/14 Resolved Arthritis(Confirmed) Active Atrial fibrillation Active (disorder)(Confirmed) Chicken pox(Confirmed) < 05/17/14 Resolved Decreased vibratory sense(Confirmed) < 09/02/14 Resolved Diplopia(Confirmed) Active Dyslipidemia(Confirmed) Active Chronic anticoagulation(Confirmed) Active Hay fever(Confirmed) < 05/17/14 Resolved Hydrocele, right(Confirmed) < 05/17/14 Resolved Liver cyst, multiple(Confirmed) Active Liver disease(Confirmed) < 05/17/14 Resolved alf 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 Active anticoagulant - [...] # 15 tabs, 5 Refill(s), eRx: Pharmacy [facility], TAKE 1/2 TABLET BY MOUTH EVERY DAY Start Date: 01/05/16 Status: Orderedcalcium-vitamin D extended release tabs, Oral, qAM, 0 Refill(s) Start Date: 03/28/14 Status: Orderedcarbidopa-levodopa 25 mg-100 mg oral tablet See Instructions, TAKE ONE TABLET BY MOUTH THREE TIMES DAILY, # 270 tabs, eRx: Pharmacy [facility], TAKE ONE TABLET BY MOUTH THREE TIMES [...] DAILY, # 60 tabs, 1 Refill(s), Pharmacy: [facility], TAKE 5MG BY MOUTH DAILY Start Date: 05/27/16 Status: OrderedZetia 10 mg oral tablet See Instructions, TAKE ONE (1) TABLET(S) DAILY, # 30 tabs, 5 Refill(s), eRx: [facility], TAKE ONE (1) TABLET(S) DAILY Start Date: 12/18/15 Status: Ordered Results No data available for [...] 1950 Circumcision 1934 Hernia4 1repeat in 5 [id number] polyps, repeat 3 [id number] NextGen: Infa Social History Social History Type Response Smoking Status Never smoker Assessment and Plan Extracted from: Title: Ambulatory Patient Education Author: Marcus Molina MD Date: 06/01/16 Home Health Care Parkinson Disease Parkinson disease is a disorder of the central nervous system, which includes the brain and spinal cord. A person with this disease slowly loses the ability to completely control body movements. Within the brain, there is a group of nerve cells (basal ganglia) that help control movement. The basal ganglia are damaged and do not work properly in a person with Parkinson disease. In addition, the basal g anglia produce and use a brain chemical called dopamine. The dopamine chemical sends messages to other parts of the body to control and coordinate body movements. Dopamine levels are low in a person wit h Parkinson disease. If the dopamine levels are low, then the body does not receive the correct messages it needs to move normally. CAUSES The exact reason why the basal ganglia get damaged is not known. Some medical researchers have thought that infection, genes, environment, and certain medicines may contribute to the cause. SYMPTOMS An early symptom of Parkinson disease is often an uncontrolled shaking ( tremor) of the hands. The tremor will often disappear when the affected hand is consciously used. As the disease progresses, walking, talking, getting out of a chair, and new movements become more difficult. Muscles get stiff and movements become slower. Balance and coordination become harder. Depression, trouble swallowing, urinary problems, constipation, and sleep problems can occur. Later in the disease, memory and thought processes may deteriorate. DIAGNOSIS There are no specific tests to diagnose Parkinson disease. You may be referred to a neurologist for evaluation. Your caregiver will ask about your medical history, symptoms, and perform a physical exam. Blood tests and imaging tests of your brain may be performed to rule out other diseases. The imaging tests may include an MRI or a CT scan. TREATMENT The goal of treatment is to relieve symptoms. Medicines may be prescribed once the symptoms become troublesome. Medicine will not stop the progression of the disease, but medicine can make movement and balance better and help control tremors. Speech and occupational therapy may also be prescribed. Sometimes, surgical treatment of the brain can be done in young people. HOME CARE INSTRUCTIONS Get regular exercise and rest periods during the day to help prevent exhaustion and depression. If getting dressed becomes difficult, replace buttons and zippers with Velcro and elastic on your clothing. Take all medicine as directed by your caregiver. Install grab bars or railings in your home to prevent falls. Go to speech or occupational therapy as directed. Keep all follow-up visits as directed by your caregiver. SEEK MEDICAL CARE IF: Your symptoms are not controlled with your medicine. You fall. You have trouble swallowing or choke on your food. MAKE SURE YOU: Understand these instructions. Will watch your condition. Will get help right away if you are not doing well or get worse. This information is not intended to replace advice given to you by your health care provider. Make sure you discuss any questions you have with your health care provider. Document Released: 07/15/2001 Document Revised: 11/12/2013 Document Reviewed: 08/16/2012 [employer] Interactive Patient Education 2016 [employer] No follow up information was provided. Extracted from: Title: Neurology Follow-up Office Note Author: Marcus Molina MD Date: Impression and Plan Diagnosis Parkinson's disease (YYP78-WF G20, Discharge, Medical). Diplopia (JSC23-XS H53.2, Discharge, Medical). BRIANNE (obstructive sleep apnea) (EQW41-[place] G47.33, Discharge, Medical). Paresthesias (NWL67-DS R20.2, Discharge, Medical). Dx/Order Association Plan: Diagnosis: 1. 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 Diplopia Comment: Intermittent diplopia--? etiology ? related to previous eye trauma Previously negative myasthenia antibodies, MRI brain unremarkable Apparently not bothering him much at this time Diagnosis: 3. BRIANNE (obstructive sleep apnea) Comment: Separately follows in sleep clinic Apparently using Diagnosis: 4. Paresthesias Comment: B12/folate wnl ? related to L-spine Not discussed today Previously deferred further eval with EMG/NCT .
--- OUTSIDE RECORDS SUMMARY | 2017-04-21 15:20 | External Medical Summary | Referral Summary ---
:1935 Author Organization Via [facility]CCA [facility] Address [address] [place] [address] [place] [address] Care Team Providers Name Role Phone José Miguel Dueñas V Primary Care Physician Encounter VC Date(s): 12/12/14 - 12/12/14 [facility] [address] [place] [address] [place] Discharge Diagnosis: ATRIAL FIBRILLATION Discharge Diagnosis: Need for pneumococcal vaccination Discharge Diagnosis: Prostate cancer Discharge Diagnosis: BRIANNE (obstructive sleep apnea) Discharge Diagnosis: Parkinsonism Discharge Diagnosis: Polycystic liver disease Discharge Diagnosis: Allergic rhinitis Discharge Diagnosis: [facility] current use of anticoagulant Discharge Diagnosis: Dyslipidemia [...] multiple(Confirmed) Active Liver disease(Confirmed) < 05/17/14 Resolved long term 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 Active anticoagulant - [...] 15 tabs, 3 Refill(s), [facility] [place], pt will need to schedule an appt with a new blasting miner for further refills, TAKE 1/2TABLET(S) DAILY Start Date: 04/10/15 Status: Orderedcalcium-vitamin D extended release tabs, Oral, qAM, 0 Refill(s) Start Date: 03/28/14 Status: Orderedcarbidopa-levodopa 25 mg-100 mg oral tablet See Instructions, TAKE ONE (1) TABLET(S) THREE TIMES DAILY, # 90 Each, 3 Refill( s), eRx: Pharmacy- [facility] [place], TAKE ONE (1) TABLET(S) THREE TIMES DAILY Start Date: 02/26/15 Status: OrderedCo-Q10 Oral, 0 Refill(s) Start Date: 03/28/14 Status: OrderedCoumadin 3 mg oral tablet See Instructions, 6MG ON MON,WED,TUESDAY & 5MG THE OTHER DAYS, # 60 Each, 1 Refill(s), eRx: Pharmacy [facility] [place], 6MG ON MON,WED,TUESDAY &amp ; 5MG THE [...] Each, 7 Refill(s), eRx: [facility] [place] [place], TAKE ONE (1) TABLET(S) DAILY Start [...] 1950 Circumcision 1934 Hernia4 1repeat in 5 [id number] polyps, repeat 3 [id number] [id number] NextGen: Infa Social History Social History Type Response Smoking Status Never smoker Assessment and Plan Extracted from: Title: CRMMP Author: José Miguel Dueñas MD Date: 12/12/14 Assessment/Plan Allergic rhinitis Odry-dna-gimqehu treatment as needed. ATRIAL FIBRILLATION, Atrial fibrillation Stable on anticoagulation. Dyslipidemia Recheck fasting lipids another day sometime soon. long term current use of anticoagulant Need for pneumococcal [...]
--- OUTSIDE RECORDS SUMMARY | 2017-04-21 15:20 | External Medical Summary | Referral Summary ---
:1935 Author Organization [facility] Address [address] [place] [address] [place] Romano [phone] Care Team Providers Name Role Phone José Miguel Dueñas V Primary Care Physician Encounter VC Date(s): 03/09/16 - 03/09/16 [facility] [address] [place] [phone] Discharge Diagnosis: Atrial fibrillation Discharge Diagnosis: Chest wall pain Discharge Diagnosis: Acute neck pain Discharge Disposition: 01-Home or Self Care Attending Physician: José Miguel Dueñas MD Admitting Physician: José Miguel Dueñas MD Vital Signs Most recent to oldest [Reference Range]: 1 Temperature Tympanic [36.6-38.1 degC] 37.1 degC (03/09/16 10:15 AM) Peripheral Pulse Rate [60-100 bpm] 82 bpm (03/09/16 10:15 AM) Respiratory Rate [14-20 br/min] 17 br/min (03/09/16 10:15 AM) Blood Pressure [90-140/60-90 mmHg] 130/80 mmHg (03/09/16 10:15 AM) SpO2 97 % (03/09/16 10:15 AM) Problem List Condition Effective Dates Status Health Status Informant Allergic rhinitis(Confirmed) Active Allergies(Confirmed) < 05/17/14 Resolved Arthritis(Confirmed) Active Atrial fibrillation Active (disorder)(Confirmed) Chicken pox(Confirmed) < 05/17/14 Resolved Decreased vibratory sense(Confirmed) < 09/02/14 Resolved Diplopia(Confirmed) Active Dyslipidemia(Confirmed) Active Chronic anticoagulation(Confirmed) Active Hay fever(Confirmed) < 05/17/14 Resolved Hydrocele, right(Confirmed) < 05/17/14 Resolved Liver cyst, multiple(Confirmed) Active Liver disease(Confirmed) < 05/17/14 Resolved senior living 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 Active anticoagulant - [...] DAY, # 15 tabs, 5 Refill(s), eRx: [facility], TAKE 1/2 TABLET BY MOUTH EVERY DAY Start Date: 01/05/16 Status: Orderedcalcium-vitamin D extended release tabs, Oral, qAM, 0 Refill(s) Start Date: 03/28/14 Status: Orderedcarbidopa-levodopa 25 mg-100 mg oral tablet 1 tabs, Oral, TID, # 270 tabs, 3 Refill(s), Pharmacy: [place], [place] Start Date: 06/09/15 Status: OrderedCo-Q10 Oral, [...] REST OF THE WEEK, # 60 tabs, 11Refill(s), eRx: [facility], TAKE 6 TABLETS ON TUESDAY & 5 TABLETS DAILY THE REST OF THE WEEK Start Date: 02/03/16 Status: OrderedZetia 10 mg oral tablet See Instructions, TAKE ONE (1) TABLET(S) DAILY, # 30 tabs, 5 Refill(s), eRx: [facility] [place], TAKE ONE (1) TABLET(S) DAILY Start Date: [...] 1950 Circumcision 1934 Hernia4 1repeat in 5 [id number] polyps, repeat 3 [id number] NextGen: Infa Social History Social History Type Response Smoking Status Never smoker Assessment and Plan Extracted from: Title: NeckPain/Costochontritis Author: José Miguel Dueñas MD Date: 03/09/16 Impression and Plan Diagnosis Atrial fibrillation (OFA30-OK I48.91, Discharge, Medical). Acute neck pain (ZZC61-GW M54.2, Discharge, Medical). Chest wall pain (EPL16-RV R07.89, Discharge, Medical). Orders Orders (Selected) .
--- OUTSIDE RECORDS SUMMARY | 2017-04-21 15:20 | External Medical Summary | Referral Summary ---
:1935 Author Organization [facility] Address [address] [place] [address] [place] Rom[place] [address] Care Team Providers Name Role Phone José Miguel Dueñas V Primary Care Physician Encounter VC Date(s): 12/12/14 - 12/12/14 [facility] [address] [place] [phone] Discharge Diagnosis: ATRIAL FIBRILLATION Discharge Diagnosis: Need for pneumococcal vaccination Discharge Diagnosis: Prostate cancer Discharge Diagnosis: BRIANNE (obstructive sleep apnea) Discharge Diagnosis: Parkinsonism Discharge Diagnosis: Polycystic liver disease Discharge Diagnosis: Allergic rhinitis Discharge Diagnosis: senior living current use of anticoagulant Discharge Diagnosis: Dyslipidemia [...] multiple(Confirmed) Active Liver disease(Confirmed) < 05/17/14 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 - [...] 15 tabs, 3 Refill(s), Pharmacy[facility] [place], pt will need to schedule an appt with a new sandblaster stone for further refills, TAKE 1/2TABLET(S) DAILY Start Date: 04/10/15 Status: Orderedcalcium-vitamin D extended release tabs, Oral, qAM, 0 Refill(s) Start Date: 03/28/14 Status: Orderedcarbidopa-levodopa 25 mg-100 mg oral tablet See Instructions, TAKE ONE (1) TABLET(S) THREE TIMES DAILY, # 90 Each, 3 Refill( s), eRx: Pharmacy- [facility] [place], TAKE ONE (1) TABLET(S) THREE TIMES DAILY Start Date: 02/26/15 Status: OrderedCo-Q10 Oral, 0 Refill(s) Start Date: 03/28/14 Status: OrderedCoumadin 3 mg oral tablet See Instructions, 6MG ON MON,WED,TUESDAY & 5MG THE OTHER DAYS, # 60 Each, 1 Refill(s), eRx: Pharmacy [facility] [place], 6MG ON MON,WED,TUESDAY &amp ; [...] Each, 7 Refill(s), eRx: [facility] [place], [place], TAKE ONE (1) TABLET(S) DAILY Start [...] 1950 Circumcision 1934 Hernia4 1repeat in 5 [id number] polyps, repeat 3 [id number] NextGen: Infa Social History Social History Type Response Smoking Status Never smoker Assessment and Plan Extracted from: Title: CRMMP Author: José Miguel Dueñas MD Date: 12/12/14 Assessment/Plan Allergic rhinitis Ynct-sul-lytjrnq treatment as needed. ATRIAL FIBRILLATION, Atrial fibrillation Stable on anticoagulation. Dyslipidemia Recheck fasting lipids another day sometime soon. 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
--- OUTSIDE RECORDS SUMMARY | 2017-04-21 15:21 | External Medical Summary | Referral Summary ---
:1935 Author Organization [facility], [facility] [place] Address [address], [facility] [[email or web address]] [address] [place] [address] Care Team Providers Name Role Phone José Miguel Dueñas V Primary Care Physician Encounter VC Date(s): 09/11/15 - 09/11/15 [facility], [facility] [place] [address], [facility] [[email or web address]] [address] [place] [address]- Discharge Diagnosis: BRIANNE (obstructive sleep apnea) Discharge Disposition: 01-Home or Self Care Attending Physician: Jamila Marie Admitting Physician: Jamila Marie Referring Physician: José Miguel Dueñas MD Vital Signs Most recent to oldest [Reference Range]: 1 Peripheral Pulse Rate [60-100 bpm] 63 bpm (09/11/15 8:58 AM) Blood Pressure [90-140/60-90 mmHg] 122/66 mmHg (09/11/15 8:58 AM) SpO2 95 % (09/11/15 8:58 AM) Problem List Condition Effective Dates Status Health Status Informant Allergic rhinitis(Confirmed) Active Allergies(Confirmed) < 05/17/14 Resolved Arthritis(Confirmed) Active Atrial fibrillation Active (disorder)(Confirmed) Chicken pox(Confirmed) < 05/17/14 Resolved Decreased vibratory sense(Confirmed) < 09/02/14 Resolved Diplopia(Confirmed) Active Dyslipidemia(Confirmed) Active Chronic anticoagulation(Confirmed) Active Hay fever(Confirmed) < 05/17/14 Resolved Hydrocele, right(Confirmed) < 05/17/14 Resolved Liver cyst, multiple(Confirmed) Active Liver disease(Confirmed) < 05/17/14 Resolved nursing home 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 Active anticoagulant - [...] # 15 tabs, 2 Refill(s), eRx: Pharmacy [place], [place], TAKE 1/2 TABLET(S) DAILY Start Date: 07/10/15 Status: Orderedcalcium-vitamin D extended release tabs, Oral, qAM, 0 Refill(s) Start Date: 03/28/14 Status: Orderedcarbidopa-levodopa 25 mg-100 mg oral tablet 1 tabs, Oral, TID, # 270 tabs, 3 Refill(s), Pharmacy: [facility] [place] [place] Start Date: 06/09/15 Status: OrderedCo-Q10 Oral, [...] WEEK, # 60 Each, 1 Refill(s), Pharmacy: [facility], TAKES 6MG ON TUESDAY AND 5MG 6 DAYS A WEEK Start Date: 09/03/15 Status: Orderedwarfarin 3 mg oral tablet See Instructions, PT TAKES 6MG ON M,TH AND 5MG 5 DAYS A WEEK, # 60 tabs, 1 Refill(s), Pharmacy: [facility] [place], [place], PT TAKES 6MG ON M,TH AND 5MG 5 DAYS A WEEK Start Date: 08/07/15 Status: OrderedZetia 10 mg oral tablet See Instructions, TAKE ONE (1) TABLET(S) DAILY, # 30 Each, 7 Refill(s), eRx: [place], [place], TAKE ONE (1) TABLET(S) DAILY Start [...] 1950 Circumcision 193 Hernia4 1repeat in 5 [id number] polyps, repeat 3 [id number] NextGen: Infa Social History Social History Type Response Smoking Status Never smoker Assessment and Plan Extracted from: Title: Office Visit Note Author: Jamila Marie Date: 09/11/15 Assessment/Plan BRIANNE (obstructive sleep apnea) - Adequate treatment with CPAP symptomatically and objectively at current pressure withexcellent adherence to therapy. Order to [facility] for supplies. Continue CPAP with all sleep at 14cm. Will have RT work with his mask fit today. -CPAP download reviewed with the patient and patient is complying with and benefitting from treatment. -Avoid driving , partaking in hazardous activities, or operating heavy machinery if drowsy. -Continue appropriate cleaning of the machine/humidifier and update of all supplies including mask , tubing , and filters . -Return for follow-up in 1 year . Return/call sooner if any problems arise in the meantime.
[2017-04-21] MEDS ORDERED: CALCIUM CARBONATE Chewable 500mg TABLET PO PRN (16:34)
[2017-04-21] MEDS ORDERED: POLYETHYL GLYCOL 3350 17gm PACKET PO PRN (16:34)
[2017-04-21] MEDS ORDERED: SIMETHICONE 80 MG CHEWABLE TABLET PO PRN (16:34)
[2017-04-21] MEDS ORDERED: WARFARIN 6 MG TABLET PO SCH (16:45)
[2017-04-21] MEDS ORDERED: WARFARIN 5 MG TABLET PO SCH ×2 (17:00→17:30)
[2017-04-21] MEDS: HYDROCODONE/APAP 5mg/325mg TABLET PO PRN (17:39)
[2017-04-21 18:38] VITALS: BMI 25.6
[2017-04-21] MEDS: MINOCYCLINE 100 MG CAPSULE PO SCH (20:19)
[2017-04-21] MEDS: DOCUSATE SODIUM 100 MG CAPSULE PO SCH (20:19)
[2017-04-22] MEDS: HYDROCODONE/APAP 5mg/325mg TABLET PO PRN ×2 (06:36→13:02)
[2017-04-22] MEDS ORDERED: [UNRECOGNIZED DRUG - OTHER] PO SCH (09:00)
[2017-04-22] MEDS ORDERED: TURMERIC PO SCH (09:00)
[2017-04-22] MEDS ORDERED: TURMERIC ROOT EXTRACT PO SCH (09:00)
[2017-04-22] MEDS: EZETIMIBE 10 MG TABLET PO SCH (09:00)
[2017-04-22] MEDS ORDERED: NON-FORMULARY MEDICATION 1 EACH EACH (Ubidecarenone [Co Q-10] 100 MG) PO SCH (09:00)
[2017-04-22] MEDS ORDERED: NON-FORMULARY MEDICATION 1 EACH EACH (Multivitamin [One Daily] 1 EACH) PO SCH (09:00)
[2017-04-22] MEDS: COENZYME Q-10 200mg TABLET PO SCH (09:00)
[2017-04-22] MEDS: MINOCYCLINE 100 MG CAPSULE PO SCH ×2 (09:00→21:14)
[2017-04-22] MEDS: DOCUSATE SODIUM 100 MG CAPSULE PO SCH ×2 (09:00→21:12)
[2017-04-22] MEDS: MULTI-VITAMIN + MINERAL TABLET PO SCH (09:00)
--- NOTE | 2017-04-22 11:39 | Consult Note ---
<Michelle Rodas - Last Filed: 04/22/17 11:35> Consult Information - Data of Consult Consult date: 04/22/17 Requesting Physician: Kyler Hale MD Primary Care Provider: José Miguel Dueñas MD Family Provider: José Miguel Dueñas MD - Consult Narrative Reason for consult: Medical management History of present illness: Mr. Tripathi is seen in consultation from Dr. Hale. Mr. Tripathi has had repeated admissions at [facility] and [facility] for complications following a fall with right rib fractures and hemopneumothorax requiring chest tube placement. He was sent home in [place] and was readmitted with what was initially read as small right PE, later felt most likely to be ruled out by in-house radiologist. He previously took Coumadin for a-fib, which was stopped after the trauma, but restarted with the possibility of PE - he was sent home on 03/14. He was most recently hospitalized at [facility] for 8 days and underwent right thoracostomy, resection of right wall cyst (confirmed by path), and total lung decortication ( Dr. Heriberto Jane). He had trace b/l apical pneumothoraces and had right chest tubes. He was treated with minocycline BID x7 days for surgical cx +staph epi. He also underwent cystoscopy with urethral dilation and difficult catheter placement per Dr. Diaz on 04/14/17. Labs reviewed - no leukocytosis; INR 1.3; Chem - had low K 3.1 on 04/18 then corrected. He was seen while working with therapy. ROS was entirely negative with the exception of incisional pain which he rated at 5/10. He has mild tremors secondary to Parkinson's. Leg swelling has improved per his sister. No weakness/ dizziness or orthostasis; no dyspnea, chest pain, palpitations; cough/cold, fever chills, abdominal or GI complaints. Denies difficulties urinating. PFSH paroxysmal atrial fibrillation right rib fractures with hemopneumothorax possible PE anemia chronic disease Parkinson disease depression HTN BPH prostate cancer allergic rhinitis central sleep apnea dyslipidemia Surgical History: 1. Right thoracostomy, resection of right wall cyst ( confirmed by path), and total lung decortication (Dr. Heriberto Jane) 04/13/17. 2. Prostate surgery for cancer. 3. Chest tube placement for hemothorax and pneumothorax 02/16/17. 4. Bilateral cataract extractions. 5. T&A. 6. Herniorraphies. 7. Appendectomy. 8. Colonoscopies Family History: Mother - CAD Father & brother - asthma Brother - CAD, DM, obesity - Social History Smoking status: Never smoker Substance use type: does not use Social history: CV - Dr. Manzano Review of Systems Comprehensive ROS: completed and no additional positive findings except those as stated - Constitutional Constitutional: Absent: chills, fever(s) - EENMT Eyes: Present: diplopia (in past) Nose: Present: allergies Mouth/Throat: Absent: sore throat, changes in swallowing - Cardiovascular Cardiovascular: Absent: chest pain, dyspnea on exertion Vascular: Present: pedal edema - Respiratory Respiratory: Absent: cough, wheezing - Gastrointestinal Gastrointestinal: Absent: abdominal pain, constipation, diarrhea, vomiting - Musculoskeletal Musculoskeletal: Present: abnormal gait (d/t Parkinson's). Absent: muscle weakness - Integumentary/Breasts Integumentary: Present: wounds (surgical) - Neurological Neurological: Present: abnormal gait. Absent: confusion, dizziness, numbness, paresthesias - Psychiatric Psychiatric: Absent: anxiety, depression - Endocrine Endocrine: Absent: palpitations - Hematologic/Lymphatic Hematologic/Lymphatic: Present: easy bleeding, easy bruising Medications Home Medications Medication Instructions Recorded Confirmed Type Ezetimibe [Zetia] 10 mg PO DAILY #0 03/15/12 04/21/17 History Turmeric/Turmeric Root Extract 500 mg PO DAILY #0 02/19/16 04/21/17 History [Turmeric 450-50 mg Capsule] Carbidopa/Levodopa 1 tab PO TID 02/28/17 04/21/17 History [Carbidopa-Levodopa 25-100 Tab] Multivitamin [One Daily] 1 each PO DAILY 03/11/17 04/21/17 History Acetaminophen 325 - 650 mg PO Q4HR PRN 04/21/17 04/21/17 History CALCIUM CARBONATE Chewable [Tums] 500 mg PO CHEW DAILY PRN 04/21/17 04/21/17 History Docusate Sodium [Colace] 1 cap PO BID 04/21/17 04/21/17 History Hydrocodone/Acetaminophen 1 - 2 tab PO Q4HR PRN 04/21/17 04/21/17 History [Hydrocodon-Acetaminophen 5-325] Magnesium Hydroxide [Milk of 30 ml PO DAILY PRN 04/21/17 04/21/17 History Magnesia] Minocycline [Minocin] 100 mg PO BID 04/21/17 04/21/17 History Polyethylene Glycol 3350 [Miralax] 17 gm PO HS PRN 04/21/17 04/21/17 History Simethicone [Mylicon] 80 mg PO Q4HR PRN 04/21/17 04/21/17 History Ubidecarenone [Co Q-10] 100 mg PO DAILY 04/21/17 04/21/17 History Warfarin Sodium 6 mg PO WEEKLY 04/21/17 04/21/17 History Allergies Allergy/AdvReac Type Severity Reaction Status Date / Time No Known Drug Allergies Allergy Unknown Verified 03/11/17 16:04 Exam Vital Signs: Temperature 98.4 F 04/22/17 08:00 Pulse Rate 97 04/22/17 08:00 Respiratory Rate 18 04/22/17 08:00 Blood Pressure 93/60 04/22/17 08:00 Pulse Oximetry 96 04/22/17 08:00 Height/Weight/BMI: Height 1.68 m Weight 72.1 kg Body Mass Index 25.6 - Constitutional Present: no acute distress, well nourished, well developed - Routine HEENT Exam Head: Present: normocephalic Eye: Present: PERRL. Absent: conjunctival icterus, scleral injection ENT: Present: mucous membranes moist, oropharynx clear - Routine Neck Exam Present: supple. Absent: lymphadenopathy - Routine Respiratory Exam Present: decreased breath sounds (and coarse breath sounds b/l) - Routine Cardiovascular Exam Present: RRR, S1, S2, murmur - Routine Abdominal Exam Present: soft, normoactive bowel sounds, non distended, non tender - Routine Extremities Exam Present: edema (trace b/l lower ext) - Routine Back/Spine/Pelvis Exam Back/Spine: Absent: vertebral tenderness - Routine Skin Exam Present: dry, warm, wounds (surgical incision not visualized while he was in PT gym due to privacy concerns) - Routine Neurological Exam Present: alert, oriented X3, CN II-XII intact, normal speech, tremors (mild). Absent: facial asymmetry - Routine Psychiatric Exam Present: normal affect, normal thought process, cooperative Results - Labs CBC & Chem 7: 04/22/17 06:35 04/22/17 06:35 Assessment and Plan (1) Ribs, multiple fractures Current visit: No Status: Acute (2) Hemothorax on right Current visit: No Status: Acute (3) Pneumothorax on right Current visit: No Status: Resolved (4) Parkinsons disease Current visit: No Status: Chronic (5) Benign essential hypertension Current visit: No Status: Chronic (6) Atrial fibrillation, chronic Current visit: No Status: Chronic (7) Dysphagia, oropharyngeal phase Current visit: No Status: Chronic (8) Pulmonary embolism Current visit: No Status: Acute DVT Prophylaxis: Coumadin Resuscitation Status: Full Code Assessment and Plan: IMPRESSION s/p right thoracostomy, resection of right wall cyst (confirmed by path), and total lung decortication (Dr. Heriberto Jane) on 04/13/17 cystoscopy with urethral dilation and difficult catheter placement per Dr. Diaz on 04/14/17; catheter left in x 1 week paroxysmal fibrillation right rib fractures with hemopneumothorax possible PE anemia chronic disease Parkinson disease depression HTN BPH prostate cancer allergic rhinitis central sleep apnea dyslipidemia PLAN Agree with orders per attending. Continue Coumadin per pharmacy - INR subtherapeutic at 1.73 on admission. Mild normocytic anemia - hx chronic anemia. Continue routine meds for Parkinson's. Will need to clarify duration of Minocycline - Zachary recommending 7 day course ; uncertain of start date - believe it was started on 04/18/17. Monitor for urine retention - recent urinary procedure per Dr. Diaz (as above). Outside records reviewed ([facility] and electronic records). Hospital Course Summary Disclaimer: The visit summary below is not to be considered part of the above Progress Note. Hospital Course: 04/22/17 12:24 IMPRESSION s/p right thoracostomy, resection of right wall cyst (confirmed by path), and total lung decortication (Dr. Heriberto Jane) on 04/13/17 cystoscopy with urethral dilation and difficult catheter placement per Dr. Diaz on 04/14/17; catheter left in x 1 week paroxysmal fibrillation right rib fractures with hemopneumothorax possible PE anemia chronic disease Parkinson disease depression HTN BPH prostate cancer allergic rhinitis central sleep apnea dyslipidemia PLAN Agree with orders per attending. Continue Coumadin per pharmacy - INR subtherapeutic at 1.73 on admission. Mild normocytic anemia - hx chronic anemia. Continue routine meds for Parkinson's. Will need to clarify duration of Minocycline - Zachary recommending 7 day course ; uncertain of start date - believe it was started on 04/18/17. Monitor for urine retention - recent urinary procedure per Dr. Diaz (as above). Outside records reviewed ([facility] and electronic records). <Katy Johnson - Last Filed: 04/22/17 20:33> Consult Information - Data of Consult Requesting Physician: Kyler Hale MD Primary Care Provider: José Miguel Dueñas MD Family Provider: José Miguel Dueñas MD [facility] Patient Stated Medical History Parkinson's Disease Yes Cataracts Yes Cardiac Arrhythmia Yes: Atrial Fib Hypertension Yes Asthma Yes Pulmonary Embolism Yes Sleep Apnea Yes Other Respiratory Yes: PNEUMOTHORAX Constipation No Other GI Yes: cysts on liver Hx Benign Prostatic Yes Hyperplasia Hx Incontinence Yes Clotting Problems Yes: PULMONARY EMBOLI Other Hematologic Yes: COUMADIN Other Musculoskeletal Yes: FX LEG, CLAVICLE, RIBS Now No Exam Vital Signs: Temperature 97.8 F 04/22/17 16:00 Pulse Rate 90 04/22/17 16:00 Respiratory Rate 16 04/22/17 16:00 Blood Pressure 124/72 04/22/17 16:00 Pulse Oximetry 95 04/22/17 16:00 Height/Weight/BMI: Height 1.68 m Weight 72.1 kg Body Mass Index 25.6 Results - Labs CBC & Chem 7: 04/22/17 06:35 04/22/17 06:35 Assessment and Plan (1) Ribs, multiple fractures Current visit: No Status: Acute (2) Hemothorax on right Current visit: No Status: Acute (3) Pneumothorax on right Current visit: No Status: Resolved (4) Parkinsons disease Current visit: No Status: Chronic (5) Benign essential hypertension Current visit: No Status: Chronic (6) Atrial fibrillation, chronic Current visit: No Status: Chronic (7) Dysphagia, oropharyngeal phase Current visit: No Status: Chronic (8) Pulmonary embolism Current visit: No Status: Acute Assessment and Plan: 04/22/2017-I reviewed this chart, the patient history, and the INFORMATION AND DATA ARCHITECT ANALYST's/PA's documented findings as above. We discussed and formulated the assessment and plan as above with the additions below.-Dr. Johnson The patient was seen this evening accompanied by his . He states he's doing well. He has some pain at his incision site where he had his thoracotomy but states it's not bad. He is tolerating his antibiotics well. He had had a Araiza in place at [place] but that was removed. He states he is urinating and eating okay but fairly frequently, which is chronic for him. He denies any shortness of breath or chest pain. He is eating and drinking well. On exam he is alert and in no acute distress. Affect is flat, likely from his Parkinson's. Chest is clear to auscultation other than some mild crackles in the left base. Cardiovascular reveals a regular rate and rhythm. Abdomen is soft and nontender. Extremities are free of edema. He has history of central sleep apnea. He did not use his CPAP while he was hospitalized in [place] and had his chest tubes in place. We can find out from cardiothoracic surgery if it is okay to restart his CPAP at night. Continue 7 days of minocycline for wound infection. Hospital Course Summary Disclaimer: The visit summary below is not to be considered part of the above Progress Note.
[2017-04-22] MEDS ORDERED: WARFARIN 6 MG TABLET PO ONE (12:00)
--- NOTE | 2017-04-22 13:54 | Pharmacy Consult ---
Pharmacy Consult-Warfarin - Laboratory Information 04/22/17 06:35 INR 1.73 H - Consult Information 81 y.o. Male with history of a. fib and possible P.E. Warfarin per pharmacy protocol ordered. goal INR = 2.0 to 3.0. Patient's home dose= 5 mg po daily except 6 mg on Tuesday INR is currently sub-therapeutic. will give 6 mg po today. Thank you for the protocol, Laura Anderson Emily date INR dose 04/22 1.73 plan: 6 mg
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
--- NOTE | 2017-04-22 16:45 | IRU 24Hr Post Admit Eval ---
24 Hr Post Admission Physical - Relevant Changes Relevant Changes: No Reviewed: I have reviewed the patient's information and concur with the finding and results of the pre-admission screen. Certification: I certify the patient for rehabilitation. - Patient Condition (1) Chest wall pain following surgery Status: Acute Code(s): G89.12 - Acute post-thoracotomy pain Classification: Present on IRF Admission, IRF Tx That Should Address Diagnosis (2) S/P thoracotomy Status: Acute Code(s): Z98.890 - Other specified postprocedural states Classification: Present on IRF Admission, Diagnosis Requiring Medical Follow Up (3) Atrial fibrillation, chronic Status: Chronic Code(s): I48.2 - Chronic atrial fibrillation Classification: Present on IRF Admission, IRF Tx That Should Address Diagnosis, Diagnosis Requiring Medical Follow Up (4) Parkinsons disease Status: Chronic Code(s): G20 - Parkinson's disease Classification: Present on IRF Admission, IRF Tx That Should Address Diagnosis - Prior Functional Status Lives With: Spouse Residence Type: Apartment/Private Home Assitive Devices: None Prior Functional Status: Indep. at home or school, Indep. w/ all home ADL - Current Functional Status Failed Alternative Therapy: Arrived from Acute Care Patient Requirements: The patient requires oversight by rehabilitation physician to manage their rehabilitation treatment plan and multidisciplinary approach to care that can only be provided in an IRF and requires a multidisciplinary approach to care, provided by professional PTs, OTs, STs, dieticians, RTs, rehabilitation nurses and is not available in lesser levels of care. Limitations Req: Mobility Impairment, ADL Impairment Physical Therapy Minutes: 90 Occupational Therapy Minutes: 90 Therapy: The patient is to receive therapy at least 5 days a week. - Complications/Comorbidities Barriers to Discharge: Weakness, Endurance, Pain Control, Medical Limitation - Impact of Co-morbidities on function his recent thoracotomy and decortication have resulted in discomfort in the right chest as well as a degree of dyspnea. This will impact his functional recovery. - Plan to Avoid Complications Plan to Avoid Complications: The patient cannot receive this care in a lesser intensive setting such as [facility] or Outpatient Therapy due to the patient requiring the followingcolon requirement to monitor oxygen saturations, blood pressures, evidence of worsening infection or respiratory difficulty in view of the thoracotomy. In addition he has had urethral stricture and his urinary output will need to be monitored carefully. .
[2017-04-22] MEDS ORDERED: WARFARIN 5 MG TABLET PO SCH (17:00)
[2017-04-23] MEDS: DOCUSATE SODIUM 100 MG CAPSULE PO SCH ×3 (08:52→21:16)
[2017-04-23] MEDS: COENZYME Q-10 200mg TABLET PO SCH (08:52)
[2017-04-23] MEDS: MINOCYCLINE 100 MG CAPSULE PO SCH ×2 (08:52→21:16)
[2017-04-23] MEDS: MULTI-VITAMIN + MINERAL TABLET PO SCH (08:53)
[2017-04-23] MEDS: EZETIMIBE 10 MG TABLET PO SCH (08:53)
--- NOTE | 2017-04-23 09:04 | Pharmacy Consult ---
Pharmacy Consult-Warfarin - Laboratory Information 04/22/17 04/23/17 06:35 06:11 INR 1.73 H 2.26 H BRAYDEN is a 81 y.o. male with history of a fib and possible P.E. The Warfarin Dosing Protocol per Pharmacy was ordered. The goal INR is between 2.0 to 3.0. The Patient's home dose is 5 mg PO daily, except 6 mg on Tuesday Date INR Dose 04/22 1.73 6 mg 04/23 2.26 Plan 5 mg The INR is therapeutic so I ordered 5 mg of Warfarin o today. This is the current home dose for today. The pharmacy will continue to monitor the INR and will adjust the Warfarin accordingly. Thank you for the Warfarin Dosing Protocol, Pankaj Nelson, Pharmacist.
--- NOTE | 2017-04-23 09:47 | Progress Note ---
Subjective: Mr. Tripathi is seen in his room following therapy. The nurses have some concerns about his surgical site. They feel that there could be infection because of redness. He states his breathing is fine. If he takes a very deep breath, he will notice a little bit of pain in the surgical incision area. No chest pain. Bowels are moving. No urinary concerns. Nurses report a low blood pressure this morning. He states he does not feel dizzy or lightheaded. Objective Vital signs: Temperature 97.4 F 04/22/17 21:54 Pulse Rate 80 04/22/17 21:54 Respiratory Rate 16 04/22/17 21:54 Blood Pressure 120/65 04/22/17 21:54 Pulse Oximetry 97 04/22/17 21:54 Height/Weight/BMI: Height 1.68 m Weight 75.5 kg Body Mass Index 25.6 - Constitutional Present: no acute distress, well nourished, well developed - Routine Respiratory Exam Present: CTA bilaterally. Absent: dyspnea, wheezes, crackles - Routine Cardiovascular Exam Present: RRR, S1, S2. Absent: murmur - Routine Abdominal Exam Present: soft, normoactive bowel sounds, non distended. Absent: tenderness - Routine Extremities Exam Present: no edema, normal capillary refill - Routine Skin Exam Present: dry, warm, wounds (large incision to the right thoracic back with mild erythema and swelling at the proximal end of the wound. This is not tender to palpation. There is a minimal amount of fluctuance in this area. It is not warm to the touch. The chest tube wound inferior to the large surgical incision is still healing. It is draining serosanguineous fluid. No sign of infection.) - Routine Neurological Exam Present: alert, oriented X3 - Routine Lymphatic Exam Lymphatic: Absent: adenopathy - Routine Psychiatric Exam Present: normal affect, normal thought process, cooperative Results - Labs CBC & Chem 7: 04/22/17 06:35 04/22/17 06:35 Assessment and Plan (1) Ribs, multiple fractures Current visit: No Status: Acute (2) Hemothorax on right Current visit: Yes Status: Acute (3) Pneumothorax on right Current visit: Yes Status: Resolved (4) Parkinsons disease Current visit: No Status: Chronic (5) Benign essential hypertension Current visit: Yes Status: Chronic (6) Atrial fibrillation, chronic Current visit: No Status: Chronic (7) Dysphagia, oropharyngeal phase Current visit: No Status: Chronic (8) Pulmonary embolism Current visit: No Status: Acute Assessment and Plan: Impression s/p right thoracostomy, resection of right wall cyst (confirmed by path), and total lung decortication (Dr. Heriberto Jane) on 04/13/17 cystoscopy with urethral dilation and difficult catheter placement per Dr. Diaz on 04/14/17; catheter left in x 1 week paroxysmal fibrillation right rib fractures with hemopneumothorax possible PE anemia chronic disease Parkinson disease depression HTN BPH prostate cancer allergic rhinitis central sleep apnea dyslipidemia Plan Continue minocycline for wound infection. Will need to keep a close eye on this. No need for intervention or change of antibiotics at this time. In review of his records from [place], April 24 would be the 7th day of antibiotics. Will follow his blood pressures throughout the day today. He had a low blood pressure yesterday morning and later readings were good. I have a call in to Dr. Jane to determine when patient may resume CPAP. Patient's thoracotomy with resection of chest wall cyst and decortication was performed 04/14/17 and chest tube was removed 04/20/17. Hospital Course Summary Disclaimer: The visit summary below is not to be considered part of the above Progress Note. Hospital Course: IMPRESSION s/p right thoracostomy, resection of right wall cyst (confirmed by path), and total lung decortication (Dr. Heriberto Jane) on 04/13/17 cystoscopy with urethral dilation and difficult catheter placement per Dr. Diaz on 04/14/17; catheter left in x 1 week paroxysmal fibrillation right rib fractures with hemopneumothorax possible PE anemia chronic disease Parkinson disease depression HTN BPH prostate cancer allergic rhinitis central sleep apnea dyslipidemia 04/22/17-hospitalist consult Agree with orders per attending. Continue Coumadin per pharmacy - INR subtherapeutic at 1.73 on admission. Mild normocytic anemia - hx chronic anemia. Continue routine meds for Parkinson's. Will need to clarify duration of Minocycline - [place] recommending 7 day course ; uncertain of start date - believe it was started on 04/18/17. Monitor for urine retention - recent urinary procedure per Dr. Diaz (as above). Outside records reviewed ([facility] and electronic records). 04/23/17 Continue minocycline for wound infection. Will need to keep a close eye on this. No need for intervention or change of antibiotics at this time. In review of his records from [place], April 24 would be the 7th day of antibiotics. I have a call in to Dr. Jane to determine when patient may resume CPAP. Patient's thoracotomy with resection of chest wall cyst and decortication was performed 04/14/17 and chest tube was removed 04/20/17.
[2017-04-23] MEDS ORDERED: WARFARIN 5 MG TABLET PO SCH (12:00)
[2017-04-23] MEDS: ACETAMINOPHEN 325 MG TABLET PO PRN (21:20)
--- NOTE | 2017-04-24 08:49 | Pharmacy Consult ---
Pharmacy Consult-Warfarin - Laboratory Information 04/22/17 04/23/17 04/24/17 06:35 06:11 07:55 INR 1.73 H 2.26 H 2.51 H WARFARIN PROTOCOL: BRAYDEN is an 81yo M with hx of AMila Han. Possible P.E. Continuing Warfarin therapy with goal INR of 2.0 to 3.0. Patient's home dose reported as 5 mg PO daily, except 6 mg on Tuesday. No drug - drug interactions noted. Date INR Dose 04/22 1.73 6 mg 04/23 2.26 5 mg 04/24 2.51 Will give 5mg again today Thank you.
[2017-04-24] MEDS: MULTI-VITAMIN + MINERAL TABLET PO SCH ×2 (09:20→09:26)
[2017-04-24] MEDS: COENZYME Q-10 200mg TABLET PO SCH (09:20)
[2017-04-24] MEDS: MINOCYCLINE 100 MG CAPSULE PO SCH ×2 (09:20→21:02)
[2017-04-24] MEDS: DOCUSATE SODIUM 100 MG CAPSULE PO SCH ×3 (09:20→21:01)
[2017-04-24] MEDS: EZETIMIBE 10 MG TABLET PO SCH (09:20)
--- NOTE | 2017-04-24 11:39 | IRU Plan of Care ---
IRU Overall Plan of Care - Date Date: 04/24/17 - Patient Impairments (1) Chest wall pain following surgery Code(s): G89.12 - Acute post-thoracotomy pain Status: Acute Classification: Present on IRF Admission, IRF Tx That Should Address Diagnosis (2) S/P thoracotomy Code(s): Z98.890 - Other specified postprocedural states Status: Acute Classification: Present on IRF Admission, Diagnosis Requiring Medical Follow Up (3) Atrial fibrillation, chronic Code(s): I48.2 - Chronic atrial fibrillation Status: Chronic Classification: Present on IRF Admission, IRF Tx That Should Address Diagnosis, Diagnosis Requiring Medical Follow Up (4) Parkinsons disease Code(s): G20 - Parkinson's disease Status: Chronic Classification: Present on IRF Admission, IRF Tx That Should Address Diagnosis - Relevant Changes Relevant Changes: No Reviewed: I have reviewed the patient's information and concur with the finding and results of the pre-admission screen. Certification: I certify the patient for rehabilitation. - Medical Prognosis Medical Prognosis: Good Vital Signs: Last Vital Signs Temp 97.9 F 04/24/17 08:00 Pulse 79 04/24/17 08:00 Resp 16 04/24/17 08:00 BP 103/65 04/24/17 08:00 Pulse Ox 96 04/24/17 08:00 - Anticipated Interventions Anticipated Interventions: The patient requires inpatient IRF care for PT, OT, and/or ST for residuals remaining from thoracotomy for chest wall cyst, Parkinson's Disease resulting in muscular weakness and strength deficits. - Current Functional Status Failed Alternative Therapy: Arrived from Acute Care Patient Requires: The patient requires oversight by rehabilitation physician to manage their rehabilitation treatment plan and multidisciplinary approach to care that can only be provided in an IRF and requires a multidisciplinary approach to care, provided by professional PTs, OTs, STs, dieticians, RTs, rehabilitation nurses and is not available in lesser levels of care. Speech-Language Pathology Minutes: 30 Physical Therapy Minutes: 90 Occupational Therapy Minutes: 90 Therapy: The patient is to receive therapy at least [address] Treatment Plan: Breathing Exercises, Voice Retraining ST Treatment Plan Duration: One Week ST Treatment Plan Frequency: Five Times Per Week Plan of Care Comment: Cont POC - Anticipated LOS/Outcomes Anticipated Functional Outcome: Pt will be able to return home and be modified independent to independent functioning with all ADL's and ambulation and transfers. Anticipated Length of Stay (days): 1 (Week) Anticipated DC Destination: Home, Self [facility] Safety Plan: The patient will be provided with the development of a Home Safety Plan for return to a home or home-like environment and and to ensure safety post discharge. - Plan to Avoid Complications Barriers to Attaining Goals: Weakness, Pain Control, Medical Limitation Plan to Avoid Complications: The patient cannot receive this care in a lesser intensive setting such as [facility] or Outpatient Therapy due to the patient requiring the following : close monitoring of his INR, oxygen saturation in view of recent thoracotomy, swallowing safety and monitoring for signs of infection following his surgery .
[2017-04-24] MEDS ORDERED: WARFARIN 5 MG TABLET PO SCH (12:00)
[2017-04-24] MEDS: ACETAMINOPHEN 325 MG TABLET PO PRN ×2 (13:16→21:04)
--- NOTE | 2017-04-24 14:34 | Progress Note ---
Subjective: Chaz is seen in follow up for his recent thoracostomy. He is seen while resting in his room with his and the nurse at bedside. He complains of pain to his posterior incision site. Nursing expressed some concern about erythema and swelling noted at the incision site. No apparent discharge or bleeding to incision though nursing admits to some discharge to the puncture wound lateral to the incision. Incision appears intact, clean and dry with mild erythema noted to the medial aspect of the incision as compared to the lateral aspect. New 1cm circular area of skin break down presumably from bandage removal inferior to the incision site. Increased protrusion of the incision, most likely related to the position of the patient's scapula as it improves with rotation of the shoulder. Mild swelling along incision line without increased tenderness with palpation. Patient remains afebrile. Repeat labs today reveal stable WBC at 5.8, persistent, stable anemia with hemoglobin at 10.5 and persistent thrombocytosis at 485. BMP is unremarkable. INR therapeutic at 2.51 with pharmacy to manage. Patient expresses eagerness for discharge home. Extensive education regarding the anatomy of the surgical site was provided to both the patient and his for further understanding of the current pain and healing process as well as the importance of therapy and incentive spirometry. All questions were answered as able. Objective Vital signs: Temperature 97.9 F 04/24/17 08:00 Pulse Rate 79 04/24/17 08:00 Respiratory Rate 16 04/24/17 08:00 Blood Pressure 103/65 04/24/17 08:00 Pulse Oximetry 96 04/24/17 08:00 Height/Weight/BMI: Height 5 ft 6 in Weight 166 lb 7.184 oz Body Mass Index 25.6 - Constitutional Present: no acute distress, well nourished, well developed, thin, cooperative - Routine HEENT Exam Head: Present: normocephalic, atraumatic Eye: Present: PERRL. Absent: conjunctival icterus ENT: Present: mucous membranes moist - Routine Respiratory Exam Present: CTA bilaterally. Absent: wheezes, crackles Comments: pain with deep breathing per patient. - Routine Cardiovascular Exam Present: RRR, S1, S2 - Routine Abdominal Exam Present: soft, normoactive bowel sounds, non distended, non tender - Routine Extremities Exam Present: no edema, pulses intact. Absent: calf tenderness - Routine Back/Spine/Pelvis Exam Back/Spine: Present: paraspinal tenderness (right upper back), pain with rotation Back image: 1 - tenderness along surgical incision - Routine Musculoskeletal Exam Musculoskeletal: Present: moving extremities well - Routine Skin Exam Present: intact, dry, warm. Absent: jaundice Comments: erythema with swelling noted to surgical incision along right scapula. Incision is clean, dry and intact. Noted yellowish drainage on bandage covering puncture wound lateral to the incision. 1cm circular area of skin breakdown inferior to incision site. - Routine Neurological Exam Present: alert, oriented X3, moving all extremities, normal speech - Routine Lymphatic Exam Lymphatic: Absent: lymphedema - Routine Psychiatric Exam Present: normal affect, cooperative Results - Labs CBC & Chem 7: 04/24/17 05:16 04/24/17 05:16 Assessment and Plan (1) Ribs, multiple fractures Current visit: No Status: Acute (2) Hemothorax on right Current visit: Yes Status: Acute (3) Pneumothorax on right Current visit: Yes Status: Resolved (4) Parkinsons disease Current visit: No Status: Chronic (5) Benign essential hypertension Current visit: Yes Status: Chronic (6) Atrial fibrillation, chronic Current visit: No Status: Chronic (7) Dysphagia, oropharyngeal phase Current visit: No Status: Chronic (8) Pulmonary embolism Current visit: No Status: Acute DVT Prophylaxis: Coumadin Resuscitation Status: Full Code Assessment and Plan: Impression s/p right thoracostomy, resection of right wall cyst (confirmed by path), and total lung decortication (Dr. Heriberto Jane) on 04/13/17 cystoscopy with urethral dilation and difficult catheter placement per Dr. Diaz on 04/14/17; catheter left in x 1 week paroxysmal fibrillation right rib fractures with hemopneumothorax possible PE anemia chronic disease Parkinson disease depression HTN BPH prostate cancer allergic rhinitis central sleep apnea dyslipidemia Plan Overall, the patient appears to be making slow gains and expresses eagerness for discharge home. Continue to encourage therapies for strengthening and improved functional abilities. Pain control per Dr. Hale. Nursing expressed concern about increased erythema and swelling to posterior scapular incision site. Incision is clean and dry on exam with erythema and swelling noted to medial end of incision. No drainage or bleeding. 1cm circular area of skin breakdown presumably from bandage. Will consult wound management for further recommendations. Appreciate their time and expertise. Continue minocycline for wound infection and continue to keep a close eye on the incision. In review of his records from [place], April 24 would be the 7th day of antibiotics. Will need to clarify duration of antibiotic treatment course with Dr. Jane. WBC today was stable at 5.8 and he remains afebrile. Coumadin for anticoagulation. INR today therapeutic at 2.51. Pharmacy to continue to manage. Blood pressures continue to vary. Continue to monitor closely. I attempted a call in to Dr. Jane to determine when patient may resume CPAP and clarify duration of antibiotic treatment. Patient's thoracotomy with resection of chest wall cyst and decortication was performed 04/14/17 and chest tube was removed 04/20/17. - Time spent with patient greater than 35 minutes Coordination of Care: >50% of visit spent providing counseling/coordination of care Hospital Course Summary Disclaimer: The visit summary below is not to be considered part of the above Progress Note. Hospital Course: IMPRESSION s/p right thoracostomy, resection of right wall cyst (confirmed by path), and total lung decortication (Dr. Heriberto Jane) on 04/13/17 cystoscopy with urethral dilation and difficult catheter placement per Dr. Diaz on 04/14/17; catheter left in x 1 week paroxysmal fibrillation right rib fractures with hemopneumothorax possible PE anemia chronic disease Parkinson disease depression HTN BPH prostate cancer allergic rhinitis central sleep apnea dyslipidemia 04/22/17-hospitalist consult Agree with orders per attending. Continue Coumadin per pharmacy - INR subtherapeutic at 1.73 on admission. Mild normocytic anemia - hx chronic anemia. Continue routine meds for Parkinson's. Will need to clarify duration of Minocycline - [facility] recommending 7 day course ; uncertain of start date - believe it was started on 04/18/17. Monitor for urine retention - recent urinary procedure per Dr. Diaz (as above). Outside records reviewed ([facility] and electronic records). 04/23/17 Continue minocycline for wound infection. Will need to keep a close eye on this. No need for intervention or change of antibiotics at this time. In review of his records from [place], April 24 would be the 7th day of antibiotics. I have a call in to Dr. Jane to determine when patient may resume CPAP. Patient's thoracotomy with resection of chest wall cyst and decortication was performed 04/14/17 and chest tube was removed 04/20/17. 04/24/17 Overall, the patient appears to be making slow gains and expresses eagerness for discharge home. Continue to encourage therapies for strengthening and improved functional abilities. Pain control per Dr. Hale. Nursing expressed concern about increased erythema and swelling to posterior scapular incision site. Incision is clean and dry on exam with erythema and swelling noted to medial end of incision. No drainage or bleeding. 1cm circular area of skin breakdown presumably from bandage. Will consult wound management for further recommendations. Appreciate their time and expertise. Continue minocycline for wound infection and continue to keep a close eye on the incision. In review of his records from [place], April 24 would be the 7th day of antibiotics. Will need to clarify duration of antibiotic treatment course with Dr. Jane. WBC today was stable at 5.8 and he remains afebrile. Coumadin for anticoagulation. INR today therapeutic at 2.51. Pharmacy to continue to manage. Blood pressures continue to vary. Continue to monitor closely. I attempted a call in to Dr. Jane to determine when patient may resume CPAP and clarify duration of antibiotic treatment. Patient's thoracotomy with resection of chest wall cyst and decortication was performed 04/14/17 and chest tube was removed 04/20/17.
[2017-04-25] MEDS: MULTI-VITAMIN + MINERAL TABLET PO SCH (08:27)
[2017-04-25] MEDS: EZETIMIBE 10 MG TABLET PO SCH (08:27)
[2017-04-25] MEDS: DOCUSATE SODIUM 100 MG CAPSULE PO SCH ×2 (08:28→21:30)
[2017-04-25] MEDS: MINOCYCLINE 100 MG CAPSULE PO SCH ×2 (08:28→21:30)
[2017-04-25] MEDS: COENZYME Q-10 200mg TABLET PO SCH (08:29)
--- NOTE | 2017-04-25 08:29 | Pharmacy Consult ---
Pharmacy Consult-Warfarin - Laboratory Information 04/22/17 04/23/17 04/24/17 06:35 06:11 07:55 INR 1.73 H 2.26 H 2.51 H 04/25/17 04:10 INR 2.72 H - Consult Information Warfarin 5mg ordered for noon today. Thank you.
--- NOTE | 2017-04-25 10:29 | IRU Progress Note ---
- Subjective/Serverity of Illness Mr. Tripathi is making good progress with therapy. He is able to ambulate with standby assistance to supervision level. Lower extremity dressing and upper extremity dressing have improved. He has been seen by the hospitalist service. Incision redness noted although not too dramatic. He personally denies any chest pain or shortness of breath. He denies any cough or sputum. He has not been running any fever. With regard to the pain in the thoracotomy site, he notes pain only with extreme movements of his arm. He states that his breathing is actually doing much better than it was previously because he has more room to breathe. Medical issues identified are as follows: 1. Atrial fibrillation: INR is now therapeutic at 2.7. He is followed by pharmacy in this regard. 2. Recent urinary retention with difficult catheter placement. Recent cystoscopy and dilatation. He is been able to void without difficulty. 3. Possible recent pulmonary embolus (please see above discussion). He denies shortness of breath or chest pain other than the chest wall discomfort. Exam Vital Signs: Temperature 97.6 F 04/25/17 08:00 Pulse Rate 87 04/25/17 08:00 Respiratory Rate 20 04/25/17 08:00 Blood Pressure 137/86 04/25/17 08:00 Pulse Oximetry 97 04/25/17 08:00 Height/Weight/BMI: Height 1.68 m Weight 75.5 kg Body Mass Index 25.6 Comments: The patient is awake, alert and oriented and in no acute distress. Pupils are equal. The neck is supple. Chest: Somewhat diminished breath sounds right base. However overall he is good air movement bilaterally and is certainly improved. Cor: irregular rhythm with no gallop; murmur noted. Abd: soft with normo-active bowel sounds. There are no masses, no tenderness and no guarding. Extremities: No edema is noted. Results IRU - Labs Labs: Reviewed lab. Hemoglobin stable around 10 g percent. Thrombocytosis noted. IRU A/P (1) Chest wall pain following surgery Current visit: Yes Status: Acute Pain appears to be well-controlled at the present time. Has pain with extreme movements of the arm only. (2) S/P thoracotomy Current visit: Yes Status: Acute He is stable post thoracotomy. Denies shortness of breath and in fact is breathing better he states. No evidence of infection. No cough and no sputum. (3) Atrial fibrillation, chronic Current visit: No Status: Chronic His INR is now therapeutic. No evidence of active bleeding. (4) Parkinsons disease Current visit: No Status: Chronic DVT Prophylaxis: Coumadin Resuscitation Status: Full Code - Course Hospital Course: Kyler Hale MD: 04/25/17 10:29 He is making good progress with therapies. Able to dress much better. Ambulates over 500 feet with standby assistance. Team meeting tomorrow but I anticipate he will be ready to go home soon. INR is now therapeutic. Pain is adequately controlled. - Interventions to Obtain Goals PT Treatment Plan: Balance/Proprioception, Functional Activities, Gait Training , Patient/Family Education, Therapeutic Exercise OT Treatment Plan: ADL (Basic Care), Balance Training, Pt./Family Education, Ther. Exercise for ADL Goals Progress/Modifications: Time spent with patient and on floor reviewing data and documentin min Barriers to dismissal: Balance, independence with dressing. Medical decision-making: Reviewed therapy notes and interviewed patient. Seems to be stable and I anticipate dismissal soon.
[2017-04-25] MEDS ORDERED: WARFARIN 5 MG TABLET PO SCH (12:00)
--- NOTE | 2017-04-25 16:26 | Wound Care Progress Note ---
Wound Center Progress Note: Pt has an incision that has redness in the upper part with light eschar. Wound is healed and no oozing. Informed staff to observe.
[2017-04-25] MEDS ORDERED: WARFARIN 6 MG TABLET PO SCH (17:00)
[2017-04-25] MEDS: ACETAMINOPHEN 325 MG TABLET PO PRN (18:42)
--- NOTE | 2017-04-26 08:20 | Pharmacy Consult ---
Pharmacy Consult-Warfarin - Laboratory Information 04/22/17 04/23/17 04/24/17 06:35 06:11 07:55 INR 1.73 H 2.26 H 2.51 H 04/25/17 04/26/17 04:10 04:57 INR 2.72 H 3.22 H WARFARIN PROTOCOL: BRAYDEN is an 81yo M with history of A. Fib. Possible P.E. The home dose was continued with a goal INR of 2.0 to 3.0. Patient's home dose reported as 5 mg PO daily, except 6 mg on Tuesday. No drug - drug interactions noted. Date INR Dose 04/22 1.73 6 mg 04/23 2.26 5 mg 04/24 2.51 5 mg 04/25 2.72 5 mg 04/26 3.22 NO warfarin today The INR was supratherapeutic today so I am holding the Warfarin dose for today. Thank you for the Warfarin Dosing Protocol, Pankaj Nelosn, Pharmacist.
[2017-04-26] MEDS: COENZYME Q-10 200mg TABLET PO SCH (08:22)
[2017-04-26] MEDS: MULTI-VITAMIN + MINERAL TABLET PO SCH (08:22)
[2017-04-26] MEDS: MINOCYCLINE 100 MG CAPSULE PO SCH (08:22)
[2017-04-26] MEDS: DOCUSATE SODIUM 100 MG CAPSULE PO SCH (08:22)
[2017-04-26] MEDS: EZETIMIBE 10 MG TABLET PO SCH (08:23)
--- NOTE | 2017-04-26 09:27 | IRU Progress Note ---
- Subjective/Serverity of Illness Mr. Tripathi was evaluated in his room. He is doing much better with regard to therapy. He is approaching independence. He denies much in the way of discomfort. I did inspect the wound. There is a scant amount of serous drainage from one of the chest tube sites. The larger thoracotomy wound is healing fine. There is minimal redness. No warmth noted. No drainage from the thoracotomy wound. Medical issues identified are as follows: 1. Atrial fibrillation: INR is somewhat supratherapeutic at 3.22. No evidence of bleeding noted. 2. Recent urinary retention with difficult catheter placement. Recent cystoscopy and dilatation. He reports no difficulty passing his urine. 3. Possible recent pulmonary embolus (please see above discussion). He denies shortness of breath or chest pain other than the chest wall discomfort. Exam Vital Signs: Temperature 97.8 F 04/26/17 08:17 Pulse Rate 73 04/26/17 08:17 Respiratory Rate 16 04/26/17 08:17 Blood Pressure 122/78 04/26/17 08:17 Pulse Oximetry 95 04/26/17 08:17 Height/Weight/BMI: Height 1.68 m Weight 75.5 kg Body Mass Index 25.6 Comments: The patient is awake, alert and oriented and in no acute distress. Pupils are equal. The neck is supple. Chest: Clear to auscultation bilaterally. Cor: irregular rhythm with no gallop, click nor murmur Abd: soft with normo-active bowel sounds. There are no masses, no tenderness and no guarding. Extremities: No edema is noted. There are good pulses in both ankles. No cyanosis is present. Thoracotomy wound inspected. Minimal redness but it looks like it's healing fine. One of the chest tube sites does have some scant drainage which is serous in nature. Results IRU - Labs Labs: Reviewed INR. IRU A/P (1) Chest wall pain following surgery Current visit: Yes Status: Acute Pain is adequately controlled at the present time. Wound is healing well. (2) S/P thoracotomy Current visit: Yes Status: Acute Please see above discussion regarding wound healing. When therapy is also been following patient. (3) Atrial fibrillation, chronic Current visit: No Status: Chronic INR is supra therapeutic at the present time at 3.22. No evidence of bleeding is noted. (4) Parkinsons disease Current visit: No Status: Chronic DVT Prophylaxis: Coumadin Resuscitation Status: Full Code - Course Hospital Course: Kyler Hale MD: 04/25/17 10:29 He is making good progress with therapies. Able to dress much better. Ambulates over 500 feet with standby assistance. Team meeting tomorrow but I anticipate he will be ready to go home soon. INR is now therapeutic. Pain is adequately controlled. 04/26/17 09:26 He is progressing well with therapy. Team meeting this noon. .Anticipate discharge soon. 04/26/17 09:26 - Interventions to Obtain Goals PT Treatment Plan: Balance/Proprioception, Functional Activities, Gait Training , Patient/Family Education, Therapeutic Exercise OT Treatment Plan: ADL (Basic Care), Balance Training, Pt./Family Education, Ther. Exercise for ADL Goals Progress/Modifications: Time spent with patient and on floor reviewing data and documentin min Barriers to dismissal: Safety with ambulation and transfers. Medical decision-making: Patient appears to be stable. INR noted.
--- NOTE | 2017-04-26 14:12 | IRU Team Meeting ---
IRU Team Meeting - Nursing Vital Signs: Vital Signs - 24 hr 04/25/17 15:34 04/25/17 19:27 04/26/17 08:17 Temperature 97.5 F 97.8 F Pulse Rate 100 84 73 Respiratory Rate 16 18 16 Blood Pressure 117/67 104/63 122/78 Pulse Oximetry 97 97 95 Current Medications: Acetaminophen (Tylenol) 325 - 650 mg PO Q4H PRN PRN Reason: pain Last Admin: 04/25/17 18:42 Dose: 650 mg Acetaminophen/Hydrocodone Bitart ([place] 5/325) 1 tab PO Q4H PRN PRN Reason: Pain Last Admin: 04/22/17 13:02 Dose: 1 tab Calcium Carbonate (Tums) 500 mg PO DAILY PRN PRN Reason: Indigestion Carbidopa/Levodopa (Sinemet) 1 tab PO TID/E [facility] Last Admin: 04/26/17 06:08 Dose: 1 tab Coenzyme Q10 (Co Q-10) 200 mg PO DAILY [facility] Last Admin: 04/26/17 08:22 Dose: 200 mg Docusate Sodium (Colace) 100 mg PO BID [facility] Last Admin: 04/26/17 08:22 Dose: 100 mg Ezetimibe (Zetia) 10 mg PO DAILY [facility] Last Admin: 04/26/17 08:23 Dose: 10 mg Magnesium Hydroxide (Mom) 30 ml PO DAILY PRN PRN Reason: constipation Minocycline HCl (Minocin) 100 mg PO BID [facility] Last Admin: 04/26/17 08:22 Dose: 100 mg Multivitamins/Minerals (Therapeutic - M) 1 tab PO DAILY [facility] Last Admin: 04/26/17 08:22 Dose: 1 tab Polyethylene Glycol (Miralax) 17 gm PO HS PRN PRN Reason: Constipation Simethicone (Mylicon) 80 mg PO Q4H PRN PRN Reason: Gas Last Admin: 04/22/17 21:13 Dose: 80 mg Warfarin Sodium (Coumadin Protocol) 0 [facility] NOTE SONJA Current Medical Issues: Atrial fibrillation on anticoagulation, recent thoracotomy with minimal drainage from chest tube site, Parkinson's disease. Comments: I certify that I personally led the interdisciplinary team meeting and agree with comments, barriers and goals indicated. Team meeting was held in the patient's room with the patient and the following family members present: Patient's . Mr. Tripathi was admitted to the inpatient rehabilitation unit following thoracotomy in [place]. The thoracotomy wound looks fine although there is a scant amount of drainage from a chest tube site. This is serous and does not appear to be purulent. He has not been running any fever. His appetite has been good. He has not required pain medication beyond Tylenol. He will need home health for assisted for dressing changes as well as PT, OT and speech therapy. - Dietary He is on a regular diet. He is taking 100% of his intake. He is followed by the dietitian. - Speech Therapy Speech therapy has been working with him with regard to phonation and using his "loud voice." Swallowing appears to be safe. He was given exercises to do and it is recommended that he continue to follow with speech therapy via home health. - Physical Therapy Comments: He is walking greater than 600 feet with supervision only. Does not require assistive devices. He is doing well with climbing stairs and has worked on walking on uneven surfaces. - Occupational Therapy Comments: He has met goals for self-care for activities of daily living. He is able to dress independently, grooming, bathe etc. - Care Plan Anticipated DC Destination: Home Health Service I have led this team conference and agree with the plan. Anticipated Length of Stay (days): 0 (patient being dismissed today.)
--- NOTE | 2017-04-26 14:41 | Discharge Instructions ---
Discharge Plan - Med Rec/Dispo Additional Instructions: Your INR started low but has been climbing quickly: (04/22 - 1.73; 04/23 - 2.26; - 2.51; 04/25 - 2.72; 04/26 - 3.22) Your dose of warfarin was decreased to 4 mg daily. Please have your INR drawn in 3 days, and discuss results with your primary provider for ongoing dosing. Prescriptions: New Warfarin [Coumadin] 4 mg PO 1700 #14 tab Continue Turmeric/Turmeric Root Extract [Turmeric 450-50 mg Capsule] 500 mg PO DAILY # 0 Carbidopa/Levodopa [Carbidopa-Levodopa 25-100 Tab] 1 tab PO TID Multivitamin [One Daily] 1 each PO DAILY Polyethylene Glycol 3350 [Miralax] 17 gm PO HS PRN PRN Reason: Constipation Simethicone [Mylicon] 80 mg PO Q4HR PRN PRN Reason: Gas Acetaminophen 325 - 650 mg PO Q4HR PRN PRN Reason: pain Ubidecarenone [Co Q-10] 100 mg PO DAILY Ezetimibe [Zetia] 10 mg PO DAILY #0 Magnesium Hydroxide [Milk of Magnesia] 30 ml PO DAILY PRN PRN Reason: constipation CALCIUM CARBONATE Chewable [Tums] 500 mg PO CHEW DAILY PRN PRN Reason: Indigestion Discontinued Docusate Sodium [Colace] 1 cap PO BID Hydrocodone/Acetaminophen [Hydrocodon-Acetaminophen 5-325] 1 - 2 tab PO Q4HR PRN PRN Reason: Pain Minocycline [Minocin] 100 mg PO BID Warfarin Sodium 5 mg PO WS #30 tablet Warfarin Sodium 6 mg PO WEEKLY Discharge Instructions/Outpatient Orders: INR - MK,PC,VC,CC Time Frame: 3 Days, Location: Determined By Patient
--- NOTE | 2017-04-26 15:15 | Discharge Instructions ---
Discharge Plan - Med Rec/Dispo Referrals/Follow Up: José Miguel Dueñas MD [Family Provider] - Additional Instructions: Your INR started low but has been climbing quickly: (04/22 - 1.73; 04/23 - 2.26; - 2.51; 04/25 - 2.72; 04/26 - 3.22) Your dose of warfarin was decreased to 4 mg daily. Please have your INR drawn in 3 days, and discuss results with your primary provider for ongoing dosing. Prescriptions: New Warfarin [Coumadin] 4 mg PO 1700 #14 tab Continue Turmeric/Turmeric Root Extract [Turmeric 450-50 mg Capsule] 500 mg PO DAILY # 0 Carbidopa/Levodopa [Carbidopa-Levodopa 25-100 Tab] 1 tab PO TID Multivitamin [One Daily] 1 each PO DAILY Polyethylene Glycol 3350 [Miralax] 17 gm PO HS PRN PRN Reason: Constipation Simethicone [Mylicon] 80 mg PO Q4HR PRN PRN Reason: Gas Acetaminophen 325 - 650 mg PO Q4HR PRN PRN Reason: pain Ubidecarenone [Co Q-10] 100 mg PO DAILY Ezetimibe [Zetia] 10 mg PO DAILY #0 Magnesium Hydroxide [Milk of Magnesia] 30 ml PO DAILY PRN PRN Reason: constipation CALCIUM CARBONATE Chewable [Tums] 500 mg PO CHEW DAILY PRN PRN Reason: Indigestion Discontinued Docusate Sodium [Colace] 1 cap PO BID Hydrocodone/Acetaminophen [Hydrocodon-Acetaminophen 5-325] 1 - 2 tab PO Q4HR PRN PRN Reason: Pain Minocycline [Minocin] 100 mg PO BID Warfarin Sodium 5 mg PO WS #30 tablet Warfarin Sodium 6 mg PO WEEKLY Discharge Instructions/Outpatient Orders: Final Provider Discharge Instructions Location: Determined By Patient INR - [facility],PC,VC,CC Time Frame: 3 Days, Location: Determined By Patient - Disposition 01 Discharged Home, Self-Care
[2017-04-26 16:37] VITALS: BP 134/77; PULSE 89; RESP 18; TEMP 97.6; O2SAT 98
--- NOTE | 2017-04-27 11:48 | Discharge Summary ---
Discharge Information Date of admission: 04/21/17 15:10 Anticipated date of discharge: 04/26/17 Attending Physician: Kyler Hale MD Primary care physician: José Miguel Dueñas MD Consults: 04/21/17 Pharmacy Consult [CONS] Routine Pharmacy Consult: Coumadin/Warfarin 04/21/17 16:34 Physician Consult [CONS] Routine Consulting Provider: Katy Johnson Reason For Exam: Medical Management Ordering Provider has Notified Supervisor [employer]: Jigna 04/24/17 14:44 [facility] Consult [CONS] Routine - Discharge Diagnosis (1) Chest wall pain following surgery Status: Acute Discharge Diagnosis: chest wall pain secondary to thoracotomy and chest tube (2) S/P thoracotomy Status: Acute Discharge Diagnosis: s/p thoracotomy for chest cyst and decortication of right lung (3) Atrial fibrillation, chronic Status: Chronic Discharge Diagnosis: Chronic atrial fibrillation (4) Parkinsons disease Status: Chronic Discharge Diagnosis: Parkinson's Disease - Laboratory Labs: 04/24/17 05:16 04/24/17 05:16 History of Present Illness HPI: 04/27/17 11:45 Mr. Tripathi had developed multiple rib fractures on the right back in January after trauma wherein he was pinned between the door and his truck. He had progressive shortness of breath and ultimately was referred to Dr. Hanson in [place]. Prior to that he had had evaluation [facility] with shortness of breath and weakness. CT angiogram of the chest seemed to have what appeared to be a small pulmonary most in the right lower lobe. He had just been started back on his Coumadin a couple of days prior to that. However subsequent over read of the CT angiogram indicated the diagnosis of pulmonary embolus was somewhat equivocal. He was treated with Lovenox and the Coumadin was adjusted. Due to continued symptoms of shortness of breath he was seen by Dr. Hanson and was admitted to [facility] on April 13 and dismissed on April 21. During that hospitalization he underwent right chest cyst removal and decortication of the right lung. He had a lot of discomfort in the chest wall postoperatively and was very weak. He was felt to be a good candidate for inpatient rehabilitation for monitoring and adjustment of his INR as well as treatment of his chest wall pain and to ensure no further hypoxemia. Hospital Course This is a general summary of the patient's hospital course. For more details refer to the complete medical record. The patient was admitted from [facility] to [facility] acute inpatient rehabilitation unit. He was quite weak. His INR was subtherapeutic. He was at risk for infection in the chest wall or hypoxemia. He underwent 24 hour rehabilitation nursing assessment of his oxygenation and any evidence of bleeding. He did well with this. He was seen by physical therapy and occupational therapy for an intensive individualized program of rehabilitation. By the time of dismissal he was independent with dressing and grooming. He was standby assistance for walking over 600 feet. He improved dramatically during this hospitalization. His INR's were monitored and his Coumadin was adjusted appropriately. He was also seen by the wound care nurse and there was no evidence of infection in the wound. There was some scant serous drainage from the chest tube site but no evidence of infection. He was felt to be stable for dismissal home with home health physical therapy and occupational therapy on 04/26/2017. He will follow-up with Dr. Dueñas, his personal physician. Hospital course: IMPRESSION s/p right thoracostomy, resection of right wall cyst (confirmed by path), and total lung decortication (Dr. Heriberto Jane) on 04/13/17 cystoscopy with urethral dilation and difficult catheter placement per Dr. Diaz on 04/14/17; catheter left in x 1 week paroxysmal fibrillation right rib fractures with hemopneumothorax possible PE anemia chronic disease Parkinson disease depression HTN BPH prostate cancer allergic rhinitis central sleep apnea dyslipidemia 04/22/17-hospitalist consult Agree with orders per attending. Continue Coumadin per pharmacy - INR subtherapeutic at 1.73 on admission. Mild normocytic anemia - hx chronic anemia. Continue routine meds for Parkinson's. Will need to clarify duration of Minocycline - Zachary recommending 7 day course ; uncertain of start date - believe it was started on 04/18/17. Monitor for urine retention - recent urinary procedure per Dr. Diaz (as above). Outside records reviewed ([facility] and electronic records). 04/23/17 Continue minocycline for wound infection. Will need to keep a close eye on this. No need for intervention or change of antibiotics at this time. In review of his records from [place], April 24 would be the 7th day of antibiotics. I have a call in to Dr. Jane to determine when patient may resume CPAP. Patient's thoracotomy with resection of chest wall cyst and decortication was performed 04/14/17 and chest tube was removed 04/20/17. 04/24/17 Overall, the patient appears to be making slow gains and expresses eagerness for discharge home. Continue to encourage therapies for strengthening and improved functional abilities. Pain control per Dr. Hale. Nursing expressed concern about increased erythema and swelling to posterior scapular incision site. Incision is clean and dry on exam with erythema and swelling noted to medial end of incision. No drainage or bleeding. 1cm circular area of skin breakdown presumably from bandage. Will consult wound management for further recommendations. Appreciate their time and expertise. Continue minocycline for wound infection and continue to keep a close eye on the incision. In review of his records from [place], April 24 would be the 7th day of antibiotics. Will need to clarify duration of antibiotic treatment course with Dr. Jane. WBC today was stable at 5.8 and he remains afebrile. Coumadin for anticoagulation. INR today therapeutic at 2.51. Pharmacy to continue to manage. Blood pressures continue to vary. Continue to monitor closely. I attempted a call in to Dr. Jane to determine when patient may resume CPAP and clarify duration of antibiotic treatment. Patient's thoracotomy with resection of chest wall cyst and decortication was performed 04/14/17 and chest tube was removed 04/20/17. Discharge Plan - Med Rec/Dispo Referrals/Follow Up: José Miguel Dueñas MD [Family Provider] - Shira Instructions: Thoracotomy (DC) Additional Instructions: Your INR started low but has been climbing quickly: (04/22 - 1.73; 04/23 - 2.26; - 2.51; 04/25 - 2.72; 04/26 - 3.22) Your dose of warfarin was decreased to 4 mg daily. Please have your INR drawn in 3 days, and discuss results with your primary provider for ongoing dosing. Prescriptions: New Warfarin [Coumadin] 4 mg PO 1700 #14 tab Continue Turmeric/Turmeric Root Extract [Turmeric 450-50 mg Capsule] 500 mg PO DAILY # 0 Carbidopa/Levodopa [Carbidopa-Levodopa 25-100 Tab] 1 tab PO TID Multivitamin [One Daily] 1 each PO DAILY Polyethylene Glycol 3350 [Miralax] 17 gm PO HS PRN PRN Reason: Constipation Simethicone [Mylicon] 80 mg PO Q4HR PRN PRN Reason: Gas Acetaminophen 325 - 650 mg PO Q4HR PRN PRN Reason: pain Ubidecarenone [Co Q-10] 100 mg PO DAILY Ezetimibe [Zetia] 10 mg PO DAILY #0 Magnesium Hydroxide [Milk of Magnesia] 30 ml PO DAILY PRN PRN Reason: constipation CALCIUM CARBONATE Chewable [Tums] 500 mg PO CHEW DAILY PRN PRN Reason: Indigestion Discontinued Docusate Sodium [Colace] 1 cap PO BID Hydrocodone/Acetaminophen [Hydrocodon-Acetaminophen 5-325] 1 - 2 tab PO Q4HR PRN PRN Reason: Pain Minocycline [Minocin] 100 mg PO BID Warfarin Sodium 5 mg PO WS #30 tablet Warfarin Sodium 6 mg PO WEEKLY Discharge Instructions/Outpatient Orders: Final Provider Discharge Instructions Location: Determined By Patient INR - MK,PC,VC,CC Time Frame: 3 Days, Location: Determined By Patient - Disposition [address] [place] [address]
== END 2017-04-26 18:35 | disposition home health service (06) | DRG 946 ==
PROVIDERS: ADMIT Internal Medicine; ATTEND Internal Medicine